=== PATIENT | male | born 1965 | race Caucasian/White ===

== ENCOUNTER 2016-09-18 21:57 | Emergency (ER) | payer MEDICAID ==
[2016-09-18 22:11] VITALS: BP 136/70; PULSE 93; O2SAT 94
[2016-09-18] MEDS ORDERED: BACIGUENT PACKET TP ONE (22:51)
[2016-09-18] MEDS ORDERED: XYLOCAINE 1%/Epi 1:100000 MDV 20 ML IJ ONE (22:51)
[2016-09-18] MEDS ORDERED: BACTRIM DS TABLET PO ONE ×2 (22:52→22:55)
[2016-09-18] MEDS ORDERED: XYLOCAINE 1%/Epi 1:100000 MDV 20 ML ONE (22:55)
[2016-09-18] MEDS ORDERED: BACIGUENT PACKET ONE (22:55)
--- NOTE | 2016-09-18 22:56 | ERPHSYRPT ---
- History of Present Illness Time Seen by Provider: 09/18/16 22:46 Source: patient Exam Limitations: no limitations Patient Subjective Stated Complaint: pt states he has an abcess on his rt elbow. states it began about a week ago and has increased in size since then Triage Nursing Assessment: pt alert and oriented, answers questions approp. pt ambultory with steady gait noted. respirations nonlabored with lungs cta. red raised area to rt elbow with scab in the middle approx 3x2cm. warmth noted to read area. cp refill and radial pulse to rt arm wnl. pt states senssation in normal. Physician History: FOR THE PAST 2 WEEKS PT HAS HAD A RED NODULE ON HIS RIGHT ELBOW; DENIES FEVER, RECENT TRAUMA, NUMBNESS, VOMITING. Allergies/Adverse Reactions: codeine [Codeine] Adverse Reaction (Verified 09/18/16 22:21) Iodinated Contrast Media - Oral and [IV Dye, Iodine Containing Contrast ] Adverse Reaction (Verified 09/18/16 22:21) Home Medications: Aspirin 325 mg PO DAILY 09/22/15 [History] Febuxostat [Uloric] 1 tab PO DAILY 09/22/15 [History] Gabapentin 800 mg PO DAILY 09/22/15 [History] Metoprolol Tartrate 50 mg [Lopressor 50 MG] 1 tab PO DAILY 09/22/15 [ History] Citalopram Hydrobromide [Citalopram HBr] 40 mg PO DAILY 04/07/16 [History] Hx Tetanus, Diphtheria Vaccination/Date Given: Yes Hx Influenza Vaccination/Date Given: No Hx Pneumococcal Vaccination/Date Given: No Immunizations Up to Date: Yes - Review of Systems Constitutional: No Fever Respiratory: No Dyspnea Cardiac: No Chest Pain Abdominal/Gastrointestinal: No Abdominal Pain, No Nausea, No Vomiting Skin: Other (NODULE ON RIGHT ELBOW.) All Other Systems: Reviewed and Negative - Past Medical History Pertinent Past Medical History: Yes Neurological History: No Pertinent History ENT History: Cataracts Cardiac History: High Cholesterol, Hypertension, Peripheral Vascular Disease Respiratory History: COPD Endocrine Medical History: Diabetes Type II Musculoskeletal History: No Pertinent History GI Medical History: GERD History: No Pertinent History Psycho-Social History: Depression Male Reproductive Disorders: Other Other Medical History: LOW TESTOSTERONE - GOUT,cardiac catherization- has blockages that dont require treatment at this time - Past Surgical History Past Surgical History: Yes Neuro Surgical History: No Pertinent History Cardiac: Cardiac Catheterization Respiratory: No Pertinent History Gastrointestinal: Cholecystectomy Genitourinary: No Pertinent History Musculoskeletal: Orthopedic Surgery Male Surgical History: No Pertinent History Other Surgical History: left wrist , diabetic neuropathy, small blockages no treatment at this time - Social History Smoking Status: Current every day smoker How long have you smoked: 30yrs Exposure to second hand smoke: No Drug Use: none Patient Lives Alone: No Significant Family History: heart disease, diabetes, hypertension, stroke - Nursing Vital Signs Nursing Vital Signs: Initial Vital Signs Temperature 99.0 F Temperature Source Oral Pulse Rate 93 Respiratory Rate 20 Blood Pressure [Right Arm] 136/70 Pain Intensity 4 - Physical Exam General Appearance: alert Eye Exam: PERRL/EOMI Ears, Nose, Throat Exam: pharynx normal, moist mucous membranes Neck Exam: normal inspection Respiratory Exam: lungs clear Cardiovascular Exam: normal heart sounds Gastrointestinal/Abdomen Exam: soft, normal bowel sounds Back Exam: normal range of motion Extremity Exam: normal range of motion Neurologic Exam: alert, cooperative Skin Exam: other (3 CM DIAMETER ERYTHEMATOUS NODULE ON RIGHT ELBOW.) SpO2 Interpretation: normal SpO2: 94 Oxygen Delivery: Room Air Procedures - Incision and Drainage Timeout: Performed Site: RIGHT ELBOW Anesthesia: 1% lidocaine w/epi cc's of anesthesia: 1 Blade Size: 11 I & D Procedure: culture obtained Results: moderate amount pus - Course Nursing assessment & vital signs reviewed: Yes Ordered Tests: Active Orders 24 hr Category Date Time Status Wound Care STAT Care 09/18/16 22:51 Active Medication Summary Discontinued Medications Generic Name Dose Route Start Last Admin Trade Name Lanny PRN Reason Stop Dose Admin Bacitracin 0.9 gm 09/18/16 22:51 09/18/16 23:02 Baciguent Packet TP 09/18/16 22:52 0.9 gm STAT ONE Administration Bacitracin Confirm 09/18/16 22:55 Baciguent Packet Administered 09/18/16 22:56 Dose 1 gm .ROUTE .STK-MED ONE Lidocaine/Epinephrine 5 ml 09/18/16 22:51 09/18/16 23:02 Xylocaine 1%/Epi [id number] Mdv 20 Ml IJ 09/18/16 22:52 5 ml STAT ONE Administration Lidocaine/Epinephrine Confirm 09/18/16 22:55 Xylocaine 1%/Epi 1:[id number] Mdv 20 Ml Administered 09/18/16 22:56 Dose 5 ml .ROUTE .STK-MED ONE Trimethoprim/Sulfamethoxazole 1 tab 09/18/16 22:52 09/18/16 23:02 Bactrim Ds Tablet PO 09/18/16 22:53 1 tab STAT ONE Administration Trimethoprim/Sulfamethoxazole Confirm 09/18/16 22:55 Bactrim Ds Tablet Administered 09/18/16 22:56 Dose 1 tab PO .STK-MED ONE - Departure Time of Disposition: 23:08 Departure Disposition: Home Clinical Impression: ABSCESS OF RIGHT ELBOW Condition: Fair Critical Care Time: No Instructions: Methicillin-Resistant Staph Infection (MRSA) Additional Instructions: FOLLOW UP WITH PRIVATE DOCTOR TOMORROW. NEOSPORIN & BANDAGE DAILY TO RIGHT ELBOW WOUND FOR 1 WEEK. Prescriptions: Smz/Tmp Ds Tablet [Bactrim Ds Tablet] 1 udtab PO BID #20 tablet
== END 2016-09-18 23:11 | disposition home or self-care (01) ==
LOC: ED 21:57
DX: L02.818 Cutaneous abscess of other sites (principal)
CPT/HCPCS: 87070; 87077; 87186; 99282; 99284; A9270-GY

== ENCOUNTER 2017-07-04 19:07 | Emergency (ER) | payer OTHER ==
[2017-07-04 19:23] VITALS: O2SAT 94
[2017-07-04] MEDS ORDERED: Cyclobenzaprine 10 MG PO ONE (19:35)
[2017-07-04] MEDS ORDERED: DECADRON 10MG INJ. IM ONE (19:35)
[2017-07-04] MEDS ORDERED: Hydromorphone 1 mg/ml Ampule IM ONE (19:35)
--- NOTE | 2017-07-04 19:39 | ERPHSYRPT ---
- History of Present Illness Time Seen by Provider: 07/04/17 19:30 Source: patient Exam Limitations: no limitations Patient Subjective Stated Complaint: pt states he has been having lower back pain for 4 days. Triage Nursing Assessment: pt alert and oreinted, asnwers questions approp. respriations nonlabored. pt trtansfer from wheelchair to stretcher with minimal assist, slow gait noted. mild tenderness to lower back. Physician History: 51 y/o male with history of DJD of lower spine comes to the ER with complaints of lower back pain for the past 4 days. Pt states that he attempted to get up and felt a pulling sensation in the lower back. Pt describes the pain as sharp, constant, 10/10, worse with movement and not relieved by naproxen, ASA and flexeril. No leg weakness or bowel/urinary incontinence. Timing/Duration: day(s) Method of Injury: bending Quality: sharp Back Pain Location: lumbar spine Back Pain Radiation: buttocks Severity of Pain-Max: severe Severity of Pain-Current: severe Modifying Factors: Improves With: nothing Associated Symptoms: denies symptoms Previous symptoms: same symptoms as today Allergies/Adverse Reactions: codeine [Codeine] Adverse Reaction (Verified 07/04/17 19:23) Iodinated Contrast- Oral and IV Dye [IV Dye, Iodine Containing Contrast ] Adverse Reaction (Verified 07/04/17 19:23) Home Medications: Aspirin 325 mg PO DAILY 09/22/15 [History] Febuxostat [Uloric] 1 tab PO DAILY 09/22/15 [History] Gabapentin 800 mg PO DAILY 09/22/15 [History] Metoprolol Tartrate 50 mg [Lopressor 50 MG] 1 tab PO DAILY 09/22/15 [ History] Citalopram Hydrobromide [Citalopram HBr] 40 mg PO DAILY 04/07/16 [History] Sitagliptin Phos/Metformin HCl [Janumet Xr 100-1,000 mg Tablet] 1 tab PO DAILY 07/04/17 [History] Hx Tetanus, Diphtheria Vaccination/Date Given: Yes Hx Influenza Vaccination/Date Given: No Hx Pneumococcal Vaccination/Date Given: No Immunizations Up to Date: Yes - Review of Systems Constitutional: No Fever, No Chills Eyes: No Symptoms Ears, Nose, & Throat: No Symptoms Respiratory: No Cough, No Dyspnea Cardiac: No Chest Pain, No Edema, No Syncope Abdominal/Gastrointestinal: No Abdominal Pain, No Nausea, No Vomiting, No Diarrhea Genitourinary Symptoms: No Dysuria, No Frequency, No Hematuria, No Incontinence , No Urinary Retention Musculoskeletal: Back Pain, No Neck Pain Skin: No Rash Neurological: No Dizziness, No Focal Weakness, No Sensory Changes Psychological: No Symptoms Endocrine: No Symptoms All Other Systems: Reviewed and Negative - Past Medical History Pertinent Past Medical History: Yes Neurological History: No Pertinent History ENT History: Cataracts Cardiac History: High Cholesterol, Hypertension, Peripheral Vascular Disease Respiratory History: COPD Endocrine Medical History: Diabetes Type II Musculoskeletal History: No Pertinent History GI Medical History: GERD History: No Pertinent History Psycho-Social History: Depression Male Reproductive Disorders: Other Other Medical History: LOW TESTOSTERONE - GOUT,cardiac catherization- has blockages that dont require treatment at this time - Past Surgical History Past Surgical History: Yes Neuro Surgical History: No Pertinent History Cardiac: Cardiac Catheterization Respiratory: No Pertinent History Gastrointestinal: Cholecystectomy Genitourinary: No Pertinent History Musculoskeletal: Orthopedic Surgery Male Surgical History: No Pertinent History Other Surgical History: left wrist , diabetic neuropathy, small blockages no treatment at this time - Social History Smoking Status: Current every day smoker How long have you smoked: 30yrs Exposure to second hand smoke: No Drug Use: none Patient Lives Alone: No Significant Family History: heart disease, diabetes, hypertension, stroke - Nursing Vital Signs Nursing Vital Signs: Initial Vital Signs Temperature 98.1 F 07/04/17 19:15 Pulse Rate 79 07/04/17 19:15 Respiratory Rate 20 07/04/17 19:15 Blood Pressure 139/87 07/04/17 19:15 O2 Sat by Pulse Oximetry 94 L 07/04/17 19:15 Pain Scale Pain Intensity [Lower Back] 10 Pain Intensity 10 - Physical Exam General Appearance: mild distress, alert Eye Exam: PERRL/EOMI, eyes nml inspection Neck Exam: normal inspection, non-tender, supple, full range of motion, No meningismus, No midline tenderness Respiratory Exam: normal breath sounds, lungs clear, No respiratory distress Cardiovascular Exam: regular rate/rhythm, normal heart sounds Gastrointestinal Exam: soft, No tenderness, No mass Back Exam: vertebral tenderness, decreased range of motion, muscle spasm, No normal range of motion, No CVA tenderness Extremity Exam: normal inspection, normal range of motion, No calf tenderness, No pedal edema Neurologic Exam: alert, oriented x 3, cooperative, 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, normal mood/affect, nml station & gait, sensation nml, No motor deficits Skin Exam: normal color, warm, dry, No rash SpO2: 94 Oxygen Delivery: Room Air - Course Nursing assessment & vital signs reviewed: Yes Ordered Tests: Medication Summary Discontinued Medications Generic Name Dose Route Start Last Admin Trade Name Freq PRN Reason Stop Dose Admin Cyclobenzaprine HCl 10 mg 07/04/17 19:35 07/04/17 19:48 Cyclobenzaprine 10 Mg PO 07/04/17 19:36 10 mg STAT ONE Administration Cyclobenzaprine HCl Confirm 07/04/17 19:43 Cyclobenzaprine 10 Mg Administered 07/04/17 19:44 Dose 10 mg .ROUTE .STK-MED ONE Dexamethasone Sodium Phosphate 10 mg 07/04/17 19:35 07/04/17 19:48 Decadron 10mg Inj. IM 07/04/17 19:36 10 mg STAT ONE Administration Dexamethasone Sodium Phosphate Confirm 07/04/17 19:43 Decadron 10mg Inj. Administered 07/04/17 19:44 Dose 10 mg .ROUTE .STK-MED ONE Hydromorphone HCl 1 mg 07/04/17 19:35 07/04/17 20:03 Hydromorphone 1 Mg/Ml Ampule IM 07/04/17 19:36 Not Given STAT ONE Hydromorphone HCl 1 mg 07/04/17 19:43 07/04/17 19:49 Dilaudid 2 Mg Injection IM 07/04/17 19:44 1 mg ONCE ONE Administration Hydromorphone HCl Confirm 07/04/17 19:46 Dilaudid 2 Mg Injection Administered 07/04/17 19:47 Dose 2 mg .ROUTE .STK-MED ONE - Progress Progress: improved Progress Note: 07/04/17 20:12 Pt feels better after receiving decadron, dilaudid and flexeril. Pt will be given a short course of percocet and will continue flexeril at home. I have advised the patient to not use any other inflammatories since he is a cardiac patient. - Departure Time of Disposition: 20:13 Departure Disposition: Home Clinical Impression: Back pain Qualifiers: Back pain location: low back pain Chronicity: acute Back pain laterality: midline Sciatica presence: without sciatica Qualified Code(s): M54.5 - Low back pain Condition: Stable Critical Care Time: No Referrals: JONAS SMITH MD [Primary Care Provider] - Instructions: Low Back Pain (DC) Additional Instructions: Follow up with your primary care doctor in he next few days if you should have worsening back pain. Prescriptions: Oxycodone HCl/Acetaminophen [Percocet 5-325 mg Tablet] 1 each PO QID PRN #10 tablet MDD 4 PRN Reason: Pain
[2017-07-04] MEDS ORDERED: DILAUDID 2 MG INJECTION IM ONE (19:43)
[2017-07-04] MEDS ORDERED: DECADRON 10MG INJ. ONE (19:43)
[2017-07-04] MEDS ORDERED: Cyclobenzaprine 10 MG ONE (19:43)
[2017-07-04] MEDS ORDERED: DILAUDID 2 MG INJECTION ONE (19:46)
[2017-07-04] MEDS ORDERED: PERCOCET TABLET 5/325MG PO STA (20:15)
[2017-07-04 20:19] VITALS: BP 132/61; PULSE 74
[2017-07-04] MEDS ORDERED: PERCOCET TABLET 5/325MG ONE (20:19)
== END 2017-07-04 20:24 | disposition home or self-care (01) ==
LOC: ED 19:07
DX: M54.5 Low back pain (principal); Z87.39 Personal history of other diseases of the musculoskeletal system and connective tissue
CPT/HCPCS: 96372; 99282; 99284; J1100; J1170; A9270-GY

== ENCOUNTER 2017-08-19 18:51 | Emergency (ER) | payer OTHER ==
[2017-08-19] MEDS ORDERED: Zofran 4 MG/2 ML VIAL IV ONE (19:32)
[2017-08-19] MEDS ORDERED: BENADRYL 50 MG/ML IV ONE (19:32)
--- NOTE | 2017-08-19 19:34 | ERPHSYRPT ---
- History of Present Illness Time Seen by Provider: 08/19/17 19:15 Source: patient, family Patient Subjective Stated Complaint: Headache, emesis, dizzy Triage Nursing Assessment: Pt presents to the ED with complaints of dizzy, emesis and headache that began today. Pt states he wanted to go home and sleep but his required him to come here. No distress noted. Pt states he feels better with eyes closed. Skin PWD. Physician History: PATIENT WITH A HISTORY OF HYPERTENSION, CORONARY ARTERY DISEASE COMPLAINS OF ACUTE ONSET OF EMESIS X 7 EPISODES SINCE 2PM, ASSOCIATED WITH FRONTAL HEADACHE AND DIZZINESS UPON MOTION OF HEAD. DENIES BLURRED VISION, SLURRED SPEECH, ABDOMINAL PAIN, FOCAL, NUMBNESS, TINGLING OR WEAKNESS IN EXTREMITIES. Timing/Duration: today Quality: other (DENIES ABDOMINAL PAIN.) Head Pain Location: frontal Severity of Pain-Max: moderate Severity of Pain-Current: moderate Recent Head Trauma: no recent headache/trauma Modifying Factors: Improves With: exposure to light Associated Symptoms: nausea/vomiting Previous symptoms: no prior history Allergies/Adverse Reactions: codeine [Codeine] Adverse Reaction (Verified 07/04/17 19:23) Iodinated Contrast- Oral and IV Dye [IV Dye, Iodine Containing Contrast ] Adverse Reaction (Verified 07/04/17 19:23) Home Medications: Aspirin 325 mg PO DAILY 09/22/15 [History] Febuxostat [Uloric] 1 tab PO DAILY 09/22/15 [History] Gabapentin 800 mg PO DAILY 09/22/15 [History] Metoprolol Tartrate 50 mg [Lopressor 50 MG] 1 tab PO DAILY 09/22/15 [ History] Citalopram Hydrobromide [Citalopram HBr] 40 mg PO DAILY 04/07/16 [History] Sitagliptin Phos/Metformin HCl [Janumet Xr 100-1,000 mg Tablet] 1 tab PO DAILY 07/04/17 [History] Hx Tetanus, Diphtheria Vaccination/Date Given: Yes Hx Influenza Vaccination/Date Given: No Hx Pneumococcal Vaccination/Date Given: Yes Immunizations Up to Date: Yes - Review of Systems Constitutional: No Fever, No Chills Eyes: No Symptoms Ears, Nose, & Throat: No Symptoms Respiratory: No Symptoms, No Cough, No Dyspnea Cardiac: No Chest Pain, No Edema, No Syncope Abdominal/Gastrointestinal: Nausea, Vomiting, No Abdominal Pain, No Diarrhea Genitourinary Symptoms: No Symptoms, No Dysuria Musculoskeletal: No Symptoms, No Back Pain, No Neck Pain Skin: No Rash Neurological: No Dizziness, No Focal Weakness, No Sensory Changes Psychological: No Symptoms Endocrine: No Symptoms All Other Systems: Reviewed and Negative - Past Medical History Pertinent Past Medical History: Yes Neurological History: No Pertinent History ENT History: Cataracts Cardiac History: High Cholesterol, Hypertension, Peripheral Vascular Disease Respiratory History: COPD Endocrine Medical History: Diabetes Type II Musculoskeletal History: No Pertinent History GI Medical History: GERD History: No Pertinent History Psycho-Social History: Depression Male Reproductive Disorders: Other Other Medical History: LOW TESTOSTERONE - GOUT,cardiac catherization- has blockages that dont require treatment at this time - Past Surgical History Past Surgical History: Yes Neuro Surgical History: No Pertinent History Cardiac: Cardiac Catheterization Respiratory: No Pertinent History Gastrointestinal: Cholecystectomy Genitourinary: No Pertinent History Musculoskeletal: Orthopedic Surgery Male Surgical History: No Pertinent History Other Surgical History: left wrist , diabetic neuropathy, small blockages no treatment at this time - Social History Smoking Status: Current every day smoker How long have you smoked: 33 years Exposure to second hand smoke: Yes Drug Use: none Patient Lives Alone: No Significant Family History: heart disease, diabetes, hypertension, stroke - Nursing Vital Signs Nursing Vital Signs: Initial Vital Signs Temperature 97.5 F 08/19/17 18:59 Pulse Rate 76 08/19/17 18:59 Respiratory Rate 18 08/19/17 18:59 Blood Pressure 154/80 08/19/17 18:59 O2 Sat by Pulse Oximetry 96 08/19/17 18:59 Pain Scale Pain Intensity 3 - Physical Exam General Appearance: no apparent distress Eye Exam: PERRL/EOMI Ears, Nose, Throat Exam: normal ENT inspection, moist mucous membranes Neck Exam: normal inspection, supple, full range of motion, No meningismus Respiratory Exam: normal breath sounds, lungs clear Cardiovascular Exam: regular rate/rhythm, normal heart sounds Gastrointestinal/Abdominal Exam: soft, normal bowel sounds, No tenderness, No distention Back Exam: normal inspection, normal range of motion Mental Status Exam: alert, oriented x 3, 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, PERRL, No facial droop Coordination/Gait Exam: normal cerebellar function Motor/Sensory Exam: no motor deficit, no sensory deficit DTR Exam: bicep (R): 2+, bicep (L): 2+, tricep (R): 2+, tricep (L): 2+, knee (R) : 2+, knee (L): 2+, ankle (R): 2+, ankle (L): 2+ Skin Exam: normal color, warm, dry, No rash SpO2 Interpretation: normal SpO2: 96 Oxygen Delivery: Room Air - CT Exams Head CT Interpretation: No/Intracranial Hemorrhag Ordered Tests: Active Orders 24 hr Category Date Time Status IV Insertion STAT Care 08/19/17 19:32 Active HEAD WITHOUT CONTRAST [CT] Stat Exams 08/19/17 19:33 Taken BMP Stat Lab 08/19/17 19:46 Completed CBC W DIFF Stat Lab 08/19/17 19:46 Completed Medication Summary Generic Name Dose Route Start Last Admin Trade Name Freq PRN Reason Stop Dose Admin Sodium Chloride 1,000 mls @ 250 mls/hr 08/19/17 19:45 08/19/17 19:44 Sodium Chloride 0.9% 1000 Ml IV 09/18/17 19:44 250 mls/hr .Q4H BEENA Administration Discontinued Medications Generic Name Dose Route Start Last Admin Trade Name Freq PRN Reason Stop Dose Admin Diphenhydramine HCl 25 mg 08/19/17 19:32 08/19/17 19:44 Benadryl 50 Mg/Ml IV 08/19/17 19:33 25 mg STAT ONE Administration Diphenhydramine HCl Confirm 08/19/17 19:36 Benadryl 50 Mg/Ml Administered 08/19/17 19:37 Dose 50 mg .ROUTE .STK-MED ONE Hydromorphone HCl 1 mg 08/19/17 20:18 08/19/17 20:29 Hydromorphone 1 Mg/Ml Ampule IV 08/19/17 20:19 1 mg STAT ONE Administration Hydromorphone HCl Confirm 08/19/17 20:28 Dilaudid 2 Mg Injection Administered 08/19/17 20:29 Dose 2 mg .ROUTE .STK-MED ONE Ondansetron HCl 8 mg 08/19/17 19:32 08/19/17 19:44 Zofran 4 Mg/2 Ml Vial IV 08/19/17 19:33 8 mg STAT ONE Administration Ondansetron HCl Confirm 08/19/17 19:36 Zofran 4 Mg/2 Ml Vial Administered 08/19/17 19:37 Dose 8 mg .ROUTE .STK-MED ONE Ondansetron HCl 4 mg 08/19/17 21:41 Zofran Odt 4 Mg PO 08/19/17 21:42 STAT ONE Lab/Rad Data: Laboratory Result Diagrams 08/19/17 19:46 08/19/17 19:46 Laboratory Results 08/19/17 08/19/17 Range/Units 19:46 19:46 WBC 8.0 (4.0-10.5) K/mm3 RBC 4.78 (4.1-5.6) M/mm3 Hgb 15.2 (12.5-18.0) gm/dl Hct 44.8 (42-50) % MCV 93.7 (78-100) fl MCH 31.8 (26-32) pg MCHC 33.9 (32-36) g/dl RDW 14.0 (11.5-14.0) % Plt Count 154 (150-450) K/mm3 MPV 10.0 H (6-9.5) fl Gran % 62.5 (36.0-66.0) % Eos # (Auto) 0.17 (0-0.5) Absolute Lymphs (auto) 2.17 (1.0-4.6) Absolute Monos (auto) 0.63 (0.0-1.3) Lymphocytes % 27.1 (24.0-44.0) % Monocytes % 7.9 (0.0-12.0) % Eosinophils % 2.1 (0.00-5.0) % Basophils % 0.4 (0.0-0.4) % Absolute Granulocytes 5.00 (1.4-6.9) Basophils # 0.03 (0-0.4) Sodium 141 (137-145) mmol/L Potassium 4.0 (3.5-5.1) mmol/L Chloride 98 (98-107) mmol/L Carbon Dioxide 30 (22-30) mmol/L Anion Gap 17.0 H (5-15) MEQ/L BUN 13 (9-20) mg/dL Creatinine 1.00 (0.66-1.25) mg/dL Estimated GFR > 60.0 ML/MIN Glucose 114 H (74-106) mg/dL Calcium 10.0 (8.4-10.2) mg/dL - Progress Progress: improved Progress Note: 08/19/17 20:24 IV NORMAL SALINE 250ML/HR, BENADRYL 25MG, ZOFRAN 8MG IV FOLLOWED BY DILAUDID 1MG IV Counseled pt/family regarding: lab results, diagnosis, need for follow-up, rad results - Departure Time of Disposition: 21:50 Departure Disposition: Home Clinical Impression: ACUTE CEPHALGIA, ACUTE VERTTIGO, ACUTE EMESIS Condition: Stable Critical Care Time: No Referrals: JONAS SMITH MD [Primary Care Provider] - Additional Instructions: ZOFRAN 4MG EVERY 6 HOURS FOR NAUSEA. ANTIVERT 25MG EVERY 8 HOURS FOR DIZZINESS NEEDED. DRINK PLENTY OF FLUIDS. CONSULT YOUR PRIMARY CARE PROVIDER FOR FOLLOWUP IN 2-3 DAYS. Prescriptions: Ondansetron ODT 4 MG [Zofran Odt 4 mg] 4 mg PO Q6H PRN PRN #6 tab.rapdis PRN Reason: NAUSEA, EMESIS Meclizine HCl 25 mg [Antivert 25 mg] 25 mg PO Q8HPRN PRN #20 tablet PRN Reason: Dizziness
[2017-08-19] MEDS ORDERED: Sodium Chloride 0.9% 1000 ML 1,000 ML ONE (19:36)
[2017-08-19] MEDS ORDERED: BENADRYL 50 MG/ML ONE (19:36)
[2017-08-19] MEDS ORDERED: Zofran 4 MG/2 ML VIAL ONE (19:36)
[2017-08-19] MEDS ORDERED: Sodium Chloride 0.9% 1000 ML 1,000 ML IV SCH (19:45)
[2017-08-19 19:56] LABS: BASOPHIL % 0.4 % (0.0-0.4); Basophil (Absolute #) 0.03 (0-0.4); Eosinophil % 2.1 % (0.00-5.0); Eosinophil (Absolute #) 0.17 (0-0.5); Granulocytes % 62.5 % (36.0-66.0); Hematocrit 44.8 % (42-50); Hemoglobin 15.2 gm/dl (12.5-18.0); Lymphocyte (Absolute #) 2.17 (1.0-4.6); Lymphocytes % 27.1 % (24.0-44.0); Mean Cell Volume 93.7 fl (78-100); Mean Corpuscular Hemoglobin 31.8 pg (26-32); Mean Corpuscular Hgb Concent. 33.9 g/dl (32-36); Monocyte (Absolute #) 0.63 (0.0-1.3); Monocytes % 7.9 % (0.0-12.0); Platelet Count 154 K/mm3 (150-450); Red Blood Count 4.78 M/mm3 (4.1-5.6)
[2017-08-19] MEDS ORDERED: Hydromorphone 1 mg/ml Ampule IV ONE (20:18)
[2017-08-19] MEDS ORDERED: DILAUDID 2 MG INJECTION ONE (20:28)
[2017-08-19 20:51] LABS: BLOOD UREA NITROGEN 13 mg/dL (9-20); CHLORIDE 98 mmol/L (98-107); Carbon Dioxide 30 mmol/L (22-30); Glucose 114 mg/dL (74-106); SODIUM 141 mmol/L (137-145)
[2017-08-19] MEDS ORDERED: ZOFRAN ODT 4 MG PO ONE (21:41)
[2017-08-19] MEDS ORDERED: ZOFRAN ODT 4 MG ONE (21:51)
[2017-08-19 22:01] VITALS: BP 115/82; PULSE 69; O2SAT 98
--- NOTE | 2017-08-20 08:28 | XRAY ---
Indication: Headache, dizziness, nausea, and vomiting. Multiple contiguous axial images obtained through the head without contrast. Comparison: September 20, 2015. Again normal appearing brain parenchyma, ventricles, and bony calvarium. Visualized paranasal sinuses and mastoid air cells are clear. Impression: Stable normal CT head without contrast exam. CT DI 68.81
== END 2017-08-19 22:05 | disposition home or self-care (01) ==
LOC: ED 18:51
DX: R51 Headache (principal); R42 Dizziness and giddiness; R11.10 Vomiting, unspecified; Z79.82 Long term (current) use of aspirin; Z79.899 Other long term (current) drug therapy; E11.9 Type 2 diabetes mellitus without complications; Z79.84 Long term (current) use of oral hypoglycemic drugs
CPT/HCPCS: 36000; 36415; 70450; 80048; 85025; 96360; 96361; 96374; 96375; 99284; J1170; J1200; J2405; Q0162

== ENCOUNTER 2017-10-24 00:05 | Emergency (ER) | payer OTHER ==
--- NOTE | 2017-10-24 01:03 | ERPHSYRPT ---
- History of Present Illness Time Seen by Provider: 10/24/17 00:47 Source: patient Exam Limitations: no limitations Patient Subjective Stated Complaint: pt is alert and oriented. pt is ambulatory. pt states that 2 days ago he hurt his left shoulder while "throwing stuff on a trailer" he states that he heard and felt a "pop". pt states that tonight he was mowing the yard and he felt another "pop" and his pain got worse. pt is not in any visible distress but has limitied range of motion of his left shoulder. pt states he took Percocet 10/325 at 2000 on 10/23/17. Triage Nursing Assessment: see above Physician History: Pt states, he injured his left shoulder 3 days ago, when lifting. 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 He denies direct trauma, headaches, chest pain, SOB, other injury or complaints. He also sustained a minor burn on his right lower leg few days ago. He states, his tetanus is up to date. Occurred: this afternoon Method of Injury: twisted Quality: constant Severity of Pain-Max: moderate Severity of Pain-Current: moderate Extremities Pain Location: shoulder: left Modifying Factors: Improves With: movement Associated Symptoms: none Allergies/Adverse Reactions: codeine [Codeine] Adverse Reaction (Verified 07/04/17 19:23) Iodinated Contrast- Oral and IV Dye [IV Dye, Iodine Containing Contrast ] Adverse Reaction (Verified 07/04/17 19:23) Home Medications: Aspirin 325 mg PO DAILY 09/22/15 [History] Febuxostat [Uloric] 1 tab PO DAILY 09/22/15 [History] Gabapentin 800 mg PO DAILY 09/22/15 [History] Metoprolol Tartrate 50 mg [Lopressor 50 MG] 1 tab PO DAILY 09/22/15 [ History] Citalopram Hydrobromide [Citalopram HBr] 40 mg PO DAILY 04/07/16 [History] Sitagliptin Phos/Metformin HCl [Janumet Xr 100-1,000 mg Tablet] 1 tab PO DAILY 07/04/17 [History] Hx Tetanus, Diphtheria Vaccination/Date Given: Yes Hx Influenza Vaccination/Date Given: Yes Hx Pneumococcal Vaccination/Date Given: Yes Immunizations Up to Date: Yes - Review of Systems Constitutional: No Symptoms Musculoskeletal: Other (left shoulder pain) All Other Systems: Reviewed and Negative - Past Medical History Pertinent Past Medical History: Yes Neurological History: No Pertinent History ENT History: Cataracts Cardiac History: High Cholesterol, Hypertension, Peripheral Vascular Disease Respiratory History: COPD Endocrine Medical History: Diabetes Type II Musculoskeletal History: No Pertinent History GI Medical History: GERD History: No Pertinent History Psycho-Social History: Depression Male Reproductive Disorders: Other Other Medical History: LOW TESTOSTERONE - GOUT,cardiac catherization- has blockages that dont require treatment at this time - Past Surgical History Past Surgical History: Yes Neuro Surgical History: No Pertinent History Cardiac: Cardiac Catheterization Respiratory: No Pertinent History Gastrointestinal: Cholecystectomy Genitourinary: No Pertinent History Musculoskeletal: Orthopedic Surgery Male Surgical History: No Pertinent History Other Surgical History: left wrist , diabetic neuropathy, small blockages no treatment at this time, teeth removal - Social History Smoking Status: Current every day smoker How long have you smoked: 33 years Exposure to second hand smoke: Yes Drug Use: none Patient Lives Alone: No Significant Family History: heart disease, diabetes, hypertension, stroke - Nursing Vital Signs Nursing Vital Signs: Initial Vital Signs Temperature 98.5 F 10/24/17 00:06 Pulse Rate 109 H 10/24/17 00:06 Respiratory Rate 16 10/24/17 00:06 Blood Pressure 177/78 10/24/17 00:06 O2 Sat by Pulse Oximetry 95 10/24/17 00:06 Pain Scale Pain Intensity 10 - Physical Exam General Appearance: no apparent distress Eyes, Ears, Nose, Throat Exam: normal ENT inspection Neck Exam: normal inspection, non-tender, supple Cardiovascular/Respiratory Exam: chest non-tender, normal breath sounds, regular rate/rhythm, heart sounds normal, no ecchymosis, no JVD Abdominal Exam: non-tender, soft, No guarding Back Exam: normal inspection, No CVA tenderness Shoulder Exam: normal inspection, limited ROM (due to pain), pain (chevy- lateral shoulder, no deformity, good distal pulses and sensation.) Neuro/Tendon Exam: normal sensation, normal motor functions Mental Status Exam: alert, oriented x 3, cooperative Skin Exam: normal color, warm, dry, other (1.5x 5 cm supoerficial, second degree burn on the right, medial lower leg, no redness or discharge, has been using Neosporin on it.), No rash SpO2 Interpretation: normal SpO2: 95 Oxygen Delivery: Room Air - Course Nursing assessment & vital signs reviewed: Yes - Radiology Exams Shoulder X-ray Interpretation: Interpreted by me, Negative Ordered Tests: Active Orders 24 hr Category Date Time Status SHOULDER Stat Exams 10/24/17 00:56 Taken - Progress Progress: unchanged Progress Note: 10/24/17 01:42 I informed patient about X ray result, and my diagnosis, possible rotator cuff syndrome, he will be discharged in sling, to rest for few days and follow up with his doctor next week. Counseled pt/family regarding: diagnosis, need for follow-up, rad results - Departure Time of Disposition: 01:43 Departure Disposition: Home Clinical Impression: Shoulder sprain Qualifiers: Encounter type: initial encounter Shoulder sprain type: unspecified sprain Laterality: left Qualified Code(s): S43.402A - Unspecified sprain of left shoulder joint, initial encounter Burn of right leg Qualifiers: Encounter type: initial encounter Burn degree: partial thickness (2nd degree) Qualified Code(s): T24.201A - Burn of second degree of unspecified site of right lower limb, except ankle and foot, initial encounter Condition: Stable Critical Care Time: No Referrals: JONAS SMITH MD [Primary Care Provider] - Instructions: Shoulder Sprain (DC), Rotator Cuff Injury (DC), Skin Martinez (DC) Additional Instructions: Rest in sling x 2-3 days, follow up with your physician next week, return if severe pain, sudden arm weakness, numbness! Prescriptions: Silver Sulfadiazine 50 gm [Silvadene 50 gm] 50 gm TP Q12H #1 cream.gm.
[2017-10-24 02:24] VITALS: BP 144/76; PULSE 89; O2SAT 97
--- NOTE | 2017-10-24 09:00 | XRAY ---
Indication: Pain following injury 3 days ago. Comparison: None 3 views of the left shoulder demonstrates mild AC degenerative arthropathy and tiny inferior acromial spurring. No other bony, articular, or soft tissue abnormalities.
== END 2017-10-24 02:22 | disposition home or self-care (01) ==
LOC: ED 00:05
DX: S43.402A Unspecified sprain of left shoulder joint, initial encounter (principal); M25.512 Pain in left shoulder; T24.201A Burn of second degree of unspecified site of right lower limb, except ankle and foot, initial encounter; Z79.899 Other long term (current) drug therapy; X50.9XXA Other and unspecified overexertion or strenuous movements or postures, initial encounter; Z79.82 Long term (current) use of aspirin
CPT/HCPCS: 73030; 99283

== ENCOUNTER 2018-08-24 21:17 | Emergency (ER) | payer OTHER ==
--- NOTE | 2018-08-24 22:01 | ERPHSYRPT ---
- History of Present Illness Time Seen by Provider: 08/24/18 21:57 Source: patient Exam Limitations: no limitations Patient Subjective Stated Complaint: sorethroat x2 days, burn with swallowing, non-prod cough, pt denies any nausea, vomiting or diarrhea Triage Nursing Assessment: lungs clear, no distress noted. Heart tones regular. Abd large, soft with active bs x4 quad. LBM . Pt's throat is red, no blisters noted. Pt c/o burning with swallowing. Physician History: 53-year-old white male with history of cataracts, hypercholesterolemia, high blood pressure, peripheral vascular disease, COPD, diabetes type 2, GERD, depression, gout. , As noted some mild blockages on cardiac catheter but has not required stents he arrives with complaint of sore throat feels like fire symptoms going on for 2 days she denies fever nausea vomiting shortness of breath he has had an occasional cough. He essentially states that he just has a sore throat. Past medical history includes cataracts, hypercholesterolemia, high blood pressure, peripheral vascular disease, COPD, diabetes type 2, GERD, depression, low testosterone, gout, history of cardiac catheter with blockages that do not require stents. 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 Timing/Duration: day(s) (2 days) Severity: moderate Modifying Factors: Improves With: other (patient on Percocet at home). Worsens With: cold therapy, eating, immobilization, medication, movement, rest, acetaminophen, ibuprofen, nothing Associated Symptoms: cough, No nausea, No vomiting, No abdominal pain, No shortness of breath, No heartburn, No diaphoresis, No chills, No chest pain, No fever, No headaches, No loss of appetite, No malaise, No rash, No syncope, No seizure, No weakness Allergies/Adverse Reactions: codeine [Codeine] Adverse Reaction (Verified 07/04/17 19:23) Iodinated Contrast- Oral and IV Dye [IV Dye, Iodine Containing Contrast ] Adverse Reaction (Verified 07/04/17 19:23) Home Medications: Aspirin 325 mg PO DAILY 09/22/15 [History] Gabapentin 800 mg PO DAILY 09/22/15 [History] Metoprolol Tartrate 50 mg [Lopressor 50 MG] 1 tab PO DAILY 09/22/15 [ History] Citalopram Hydrobromide [Citalopram HBr] 40 mg PO DAILY 04/07/16 [History] Sitagliptin Phos/Metformin HCl [Janumet Xr 100-1,000 mg Tablet] 1 tab PO DAILY 07/04/17 [History] Hx Tetanus, Diphtheria Vaccination/Date Given: Yes Hx Influenza Vaccination/Date Given: No Hx Pneumococcal Vaccination/Date Given: No Immunizations Up to Date: Yes - Review of Systems Constitutional: No Fever, No Chills Eyes: No Symptoms Ears, Nose, & Throat: Throat Pain, No Ear Pain, No Ear Discharge, No Hearing Changes, No Tinnitus, No Nose Pain, No Nose Congestion, No Nose Discharge, No Sinus Drainage, No Epistaxis, No Mouth Pain, No Mouth Swelling, No Loose Teeth, No Throat Swelling, No Hoarse, No Painful Swallowing, No Snoring, No Stridor Respiratory: No Cough, No Dyspnea Cardiac: No Chest Pain, No Edema, No Syncope Abdominal/Gastrointestinal: No Abdominal Pain, No Nausea, No Vomiting, No Diarrhea Genitourinary Symptoms: No Dysuria Musculoskeletal: No Back Pain, No Neck Pain Skin: No Rash Neurological: No Dizziness, No Focal Weakness, No Sensory Changes Psychological: No Symptoms Endocrine: No Symptoms All Other Systems: Reviewed and Negative - Past Medical History Pertinent Past Medical History: Yes Neurological History: No Pertinent History ENT History: Cataracts Cardiac History: Coronary Artery Disease, Hypertension Respiratory History: Sleep Apnea Endocrine Medical History: No Pertinent History Musculoskeletal History: Arthritis, Fractures GI Medical History: Gallbladder Disease History: No Pertinent History Psycho-Social History: Depression Male Reproductive Disorders: No Pertinent History Other Medical History: LOW TESTOSTERONE - GOUT,cardiac catherization- has blockages that dont require treatment at this time - Past Surgical History Past Surgical History: No Neuro Surgical History: No Pertinent History Cardiac: Cardiac Catheterization Respiratory: No Pertinent History Gastrointestinal: No Pertinent History, Cholecystectomy Genitourinary: No Pertinent History Musculoskeletal: Orthopedic Surgery Male Surgical History: No Pertinent History Other Surgical History: left wrist , diabetic neuropathy, small blockages no treatment at this time, teeth removal - Social History Smoking Status: Current every day smoker How long have you smoked: 17 yrs Exposure to second hand smoke: Yes Drug Use: none Patient Lives Alone: No Significant Family History: heart disease, diabetes, hypertension, stroke - Nursing Vital Signs Nursing Vital Signs: Initial Vital Signs Temperature 98.0 F 08/24/18 21:17 Pulse Rate 95 H 08/24/18 21:17 Respiratory Rate 17 08/24/18 21:17 Blood Pressure 151/90 08/24/18 21:17 O2 Sat by Pulse Oximetry 96 08/24/18 21:17 Pain Scale Pain Intensity 0 - Physical Exam General Appearance: mild distress, alert, obese Eye Exam: PERRL/EOMI, eyes nml inspection Ears, Nose, Throat Exam: TMs normal, moist mucous membranes, pharyngeal erythema , No pharynx normal (throat erythematous), No dry mucous membranes, No TM abnormal (R), No TM abnormal (L), No tonsillar exudate Neck Exam: normal inspection, non-tender, supple, full range of motion Respiratory Exam: normal breath sounds Cardiovascular Exam: regular rate/rhythm, normal heart sounds, normal peripheral pulses, capillary refill <2 sec Gastrointestinal/Abdomen Exam: soft, normal bowel sounds, No tenderness, No mass Back Exam: normal inspection, normal range of motion, No CVA tenderness, No vertebral tenderness Extremity Exam: normal inspection, normal range of motion, pelvis stable Neurologic Exam: alert, oriented x 3, cooperative, 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 Strep test is negative vitals are stable. Patient with narcotic analgesia at home. Will discharge patient - Departure Departure Disposition: Home Clinical Impression: Viral pharyngitis, Throat pain Condition: Fair Critical Care Time: No Referrals: JONAS SMITH MD [Primary Care Provider] - Instructions: Sore Throat, Adult (DC), Viral Pharyngitis (DC) Additional Instructions: Return home. Plenty of fluids. Pain medications as prescribed by your family doctor. Follow-up with your family doctor if symptoms are worse, no better in 48 hours, or persist longer than one week. Return for acute distress or for severe symptoms.
[2018-08-25 00:12] VITALS: BP 132/72; PULSE 90; O2SAT 95
== END 2018-08-25 00:18 | disposition home or self-care (01) ==
LOC: ED 21:17
DX: J02.9 Acute pharyngitis, unspecified (principal); R07.0 Pain in throat
CPT/HCPCS: 87651; 99283

== ENCOUNTER 2018-09-29 22:35 | Observation (INO) | payer OTHER ==
--- NOTE | 2018-09-29 23:36 | ERPHSYRPT ---
- History of Present Illness Time Seen by Provider: 09/29/18 23:20 Historian: patient Exam Limitations: no limitations Patient Subjective Stated Complaint: pt states he has been throwing up since yesterday and has pain in his chest from throwing up. states he "just doesnt feel well" Triage Nursing Assessment: pt alert and oriented, answers questions approp. pt ambulatory from wheelchair to stretcher with no assist. skin warm and dry. repsirations nonlabored with lungs cta. pt sinus rhythm on monitor at 76bpm. pupils equal and reactive. bilat upper and lower ext strength equal and wnl. Physician History: Pt states, he started c/o dizziness, vomiting, left sided chest pain 2 days ago. He vomited few times, denies headaches, no focal weakness, visual changes, or slurred speech, no fever, chills, abdominal pain, other complaints, denies vertigo. Pt takes regular aspirin every morning. Timing/Duration: day(s) (2) Activities at Onset: none Quality: sharpness Location: central Chest Pain Radiation: no radiation Severity of Pain-Max: severe Severity of Pain-Current: moderate Modifying Factors: Improves With: nothing Associated Symptoms: nausea, vomiting, shortness of breath, dizziness Prior Chest Pain/Cardiac Workup: cardiac cath Nitro Today/Relief: no nitro taken today Aspirin Treatment Today: no aspirin today Allergies/Adverse Reactions: codeine [Codeine] Adverse Reaction (Verified 09/29/18 22:58) Iodinated Contrast- Oral and IV Dye [IV Dye, Iodine Containing Contrast ] Adverse Reaction (Verified 09/29/18 22:58) Home Medications: Aspirin 325 mg PO DAILY 09/22/15 [History] Gabapentin 800 mg PO DAILY 09/22/15 [History] Metoprolol Tartrate 50 mg [Lopressor 50 MG] 1 tab PO DAILY 09/22/15 [ History] Citalopram Hydrobromide [Citalopram HBr] 40 mg PO DAILY 04/07/16 [History] Sitagliptin Phos/Metformin HCl [Janumet Xr 100-1,000 mg Tablet] 1 tab PO DAILY 07/04/17 [History] Hx Tetanus, Diphtheria Vaccination/Date Given: Yes Hx Influenza Vaccination/Date Given: No Hx Pneumococcal Vaccination/Date Given: No Immunizations Up to Date: Yes - Review of Systems Constitutional: No Symptoms Eyes: No Symptoms Ears, Nose, & Throat: No Symptoms Respiratory: Dyspnea Cardiac: Chest Pain Abdominal/Gastrointestinal: Nausea, Vomiting Genitourinary Symptoms: No Symptoms Musculoskeletal: No Symptoms Skin: No Symptoms Neurological: Dizziness Psychological: No Symptoms All Other Systems: Reviewed and Negative - Past Medical History Pertinent Past Medical History: Yes Neurological History: No Pertinent History ENT History: Cataracts Cardiac History: Coronary Artery Disease, Hypertension Respiratory History: Sleep Apnea Endocrine Medical History: No Pertinent History Musculoskeletal History: Arthritis, Fractures GI Medical History: Gallbladder Disease History: No Pertinent History Psycho-Social History: Depression Male Reproductive Disorders: No Pertinent History Other Medical History: LOW TESTOSTERONE - GOUT,cardiac catherization- has blockages that dont require treatment at this time - Past Surgical History Past Surgical History: Yes Neuro Surgical History: No Pertinent History Cardiac: Cardiac Catheterization Respiratory: No Pertinent History Gastrointestinal: No Pertinent History, Cholecystectomy Genitourinary: No Pertinent History Musculoskeletal: Orthopedic Surgery Male Surgical History: No Pertinent History Other Surgical History: left wrist , diabetic neuropathy, small blockages no treatment at this time, teeth removal - Social History Smoking Status: Current every day smoker How long have you smoked: 17 yrs Exposure to second hand smoke: Yes Drug Use: none Patient Lives Alone: No Significant Family History: heart disease, diabetes, hypertension, stroke - Nursing Vital Signs Nursing Vital Signs: Initial Vital Signs Respiratory Rate 18 05/22/19 22:43 Pain Scale Pain Intensity 7 - Physical Exam General Appearance: no apparent distress Eye Exam: PERRL/EOMI, eyes nml inspection Ears, Nose, Throat Exam: normal ENT inspection, moist mucous membranes Neck Exam: normal inspection, non-tender, supple, No carotid bruit, No JVD Respiratory Exam: normal breath sounds, lungs clear, airway intact, No chest tenderness Cardiovascular Exam: regular rate/rhythm, normal heart sounds, normal peripheral pulses, No murmur Gastrointestinal/Abdomen Exam: soft, normal bowel sounds, No tenderness, No distention, No mass, No guarding, No pulsatile mass, No rebound, No hernia Back Exam: normal inspection, No CVA tenderness Extremity Exam: normal inspection, No calf tenderness, No xiomara's sign Neurologic Exam: alert, oriented x 3, cooperative, normal mood/affect, No motor deficits, No confusion Skin Exam: normal color, warm, dry, No rash, No petechiae Lymphatic Exam: No adenopathy SpO2 Interpretation: normal O2 Delivery: Room Air - Course Nursing assessment & vital signs reviewed: Yes EKG Interpreted by Me: RATE (74/min), Left [place] Deviation, NORMAL INTERVALS, NORMAL QRS, NORMAL ST-T - Radiology Exams Chest X-ray Interpretation: Interpreted by me, Negative - CT Exams Head CT Interpretation: Negative, Tele-radiologist Report Ordered Tests: Active Orders 24 hr Category Date Time Status Pediatrician Active Practice STAT Care 09/29/18 23:31 Active EKG-ER Only STAT Care 09/29/18 23:30 Active IV Insertion STAT Care 09/29/18 23:30 Active Orthostatic Vital Signs STAT Care 09/29/18 23:30 Active CHEST 1 VIEW (PORTABLE) Stat Exams 09/29/18 23:30 Taken HEAD WITHOUT CONTRAST [CT] Stat Exams 09/29/18 23:31 Taken CBC W DIFF Stat Lab 09/29/18 23:52 Completed CK-Creatinine Phosphokinase Stat Lab 09/29/18 23:52 Completed CMP Stat Lab 09/29/18 23:52 Completed D-DIMER QUANTITATION Stat Lab 09/29/18 23:52 Completed MAGNESIUM Stat Lab 09/29/18 23:52 Completed NT PRO BNP Stat Lab 09/29/18 23:52 Completed TROPONIN Q3H Lab 09/29/18 23:30 Completed TROPONIN Q3H Lab 09/30/18 02:30 Ordered TROPONIN Q3H Lab 09/30/18 05:30 Ordered TROPONIN Q3H Lab 09/30/18 08:30 Ordered TROPONIN Q3H Lab 09/30/18 11:30 Ordered UA W/RFX UR CULTURE Stat Lab 09/29/18 23:54 Completed Urine Triage Profile Stat Lab 09/29/18 23:54 Completed Lab/Rad Data: Laboratory Result Diagrams 09/29/18 23:52 09/29/18 23:52 Laboratory Results 09/29/18 09/29/18 09/29/18 Range/Units 23:54 23:54 23:52 WBC (4.0-10.5) K/mm3 RBC (4.1-5.6) M/mm3 Hgb (12.5-18.0) gm/dl Hct (42-50) % MCV (78-100) fl MCH (26-32) pg MCHC (32-36) g/dl RDW (11.5-14.0) % Plt Count (150-450) K/mm3 MPV (6-9.5) fl Gran % (36.0-66.0) % Eos # (Auto) (0-0.5) Absolute Lymphs (auto) (1.0-4.6) Absolute Monos (auto) (0.0-1.3) Lymphocytes % (24.0-44.0) % Monocytes % (0.0-12.0) % Eosinophils % (0.00-5.0) % Basophils % (0.0-0.4) % Absolute Granulocytes (1.4-6.9) Basophils # (0-0.4) D-Dimer 482 (215-500) ng/mL Sodium (137-145) mmol/L Potassium (3.5-5.1) mmol/L Chloride (98-107) mmol/L Carbon Dioxide (22-30) mmol/L Anion Gap (5-15) MEQ/L BUN (9-20) mg/dL Creatinine (0.66-1.25) mg/dL Estimated GFR ML/MIN Glucose (74-106) mg/dL Calcium (8.4-10.2) mg/dL Magnesium (1.6-2.3) mg/dL Total Bilirubin (0.2-1.3) mg/dL AST (17-59) U/L ALT (0-50) U/L Alkaline Phosphatase (38-126) U/L Creatine Kinase (55-170) U/L Troponin I (0.000-0.034) ng/mL NT-Pro-B Natriuret Pep (0-900) pg/mL Serum Total Protein (6.3-8.2) g/dL Albumin (3.5-5.0) g/dL Urine Color YELLOW (YELLOW) Urine Appearance SLIGHTLY CLOUDY (CLEAR) Urine pH 5.0 (5-6) Ur Specific [place] 1.017 (1.005-1.025) Urine Protein NEGATIVE (Negative) Urine Ketones NEGATIVE (NEGATIVE) Urine Blood SMALL (0-5) Steve/ul Urine Nitrite NEGATIVE (NEGATIVE) Urine Bilirubin NEGATIVE (NEGATIVE) Urine Urobilinogen NEGATIVE (0-1) mg/dL Ur Leukocyte Esterase NEGATIVE (NEGATIVE) Urine WBC (Auto) 0-2 (0-5) /HPF Urine RBC (Auto) 3-5 (0-2) /HPF U Hyaline Cast (Auto) 26-50 (0-2) /LPF U Epithel Cells (Auto) RARE (FEW) /HPF Urine Bacteria (Auto) RARE (NEGATIVE) /HPF Urine Mucus (Auto) SLIGHT (NEGATIVE) /HPF Urine Culture Reflexed NO (NO) Urine Glucose NEGATIVE (NEGATIVE) mg/dL Urine Opiates Level POSITIVE (NEGATIVE) Ur Methadone NEGATIVE (NEGATIVE) Urine Barbiturates NEGATIVE (NEGATIVE) Ur Phencyclidine (PCP) NEGATIVE (NEGATIVE) Urine Amphetamine NEGATIVE (NEGATIVE) U Benzodiazepine Level NEGATIVE (NEGATIVE) Urine Cocaine NEGATIVE (NEGATIVE) Urine Marijuana (THC) NEGATIVE (NEGATIVE) 09/29/18 09/29/18 09/29/18 Range/Units 23:52 23:52 23:52 WBC 16.1 H (4.0-10.5) K/mm3 RBC 4.67 (4.1-5.6) M/mm3 Hgb 15.0 (12.5-18.0) gm/dl Hct 45.0 (42-50) % MCV 96.4 (78-100) fl MCH 32.1 H (26-32) pg MCHC 33.3 (32-36) g/dl RDW 13.5 (11.5-14.0) % Plt Count 188 (150-450) K/mm3 MPV 9.9 H (6-9.5) fl Gran % 63.4 (36.0-66.0) % Eos # (Auto) 0.17 (0-0.5) Absolute Lymphs (auto) 4.42 (1.0-4.6) Absolute Monos (auto) 1.28 (0.0-1.3) Lymphocytes % 27.4 (24.0-44.0) % Monocytes % 7.9 (0.0-12.0) % Eosinophils % 1.1 (0.00-5.0) % Basophils % 0.2 (0.0-0.4) % Absolute Granulocytes 10.21 H (1.4-6.9) Basophils # 0.04 (0-0.4) D-Dimer (215-500) ng/mL Sodium 142 (137-145) mmol/L Potassium 3.9 (3.5-5.1) mmol/L Chloride 98 (98-107) mmol/L Carbon Dioxide 25 (22-30) mmol/L Anion Gap 22.8 H (5-15) MEQ/L BUN 21 H (9-20) mg/dL Creatinine 1.79 H (0.66-1.25) mg/dL Estimated GFR 42.8 ML/MIN Glucose 103 (74-106) mg/dL Calcium 10.6 H (8.4-10.2) mg/dL Magnesium 1.7 (1.6-2.3) mg/dL Total Bilirubin 0.60 (0.2-1.3) mg/dL AST 56 (17-59) U/L ALT 36 (0-50) U/L Alkaline Phosphatase 83 (38-126) U/L Creatine Kinase 140 (55-170) U/L Troponin I (0.000-0.034) ng/mL NT-Pro-B Natriuret Pep 129 (0-900) pg/mL Serum Total Protein 9.3 H (6.3-8.2) g/dL Albumin 4.7 (3.5-5.0) g/dL Urine Color (YELLOW) Urine Appearance (CLEAR) Urine pH (5-6) Ur Specific [place] (1.005-1.025) Urine Protein (Negative) Urine Ketones (NEGATIVE) Urine Blood (0-5) Steve/ul Urine Nitrite (NEGATIVE) Urine Bilirubin (NEGATIVE) Urine Urobilinogen (0-1) mg/dL Ur Leukocyte Esterase (NEGATIVE) Urine WBC (Auto) (0-5) /HPF Urine RBC (Auto) (0-2) /HPF U Hyaline Cast (Auto) (0-2) /LPF U Epithel Cells (Auto) (FEW) /HPF Urine Bacteria (Auto) (NEGATIVE) /HPF Urine Mucus (Auto) (NEGATIVE) /HPF Urine Culture Reflexed (NO) Urine Glucose (NEGATIVE) mg/dL Urine Opiates Level (NEGATIVE) Ur Methadone (NEGATIVE) Urine Barbiturates (NEGATIVE) Ur Phencyclidine (PCP) (NEGATIVE) Urine Amphetamine (NEGATIVE) U Benzodiazepine Level (NEGATIVE) Urine Cocaine (NEGATIVE) Urine Marijuana (THC) (NEGATIVE) 09/29/18 Range/Units 23:30 WBC (4.0-10.5) K/mm3 RBC (4.1-5.6) M/mm3 Hgb (12.5-18.0) gm/dl Hct (42-50) % MCV (78-100) fl MCH (26-32) pg MCHC (32-36) g/dl RDW (11.5-14.0) % Plt Count (150-450) K/mm3 MPV (6-9.5) fl Gran % (36.0-66.0) % Eos # (Auto) (0-0.5) Absolute Lymphs (auto) (1.0-4.6) Absolute Monos (auto) (0.0-1.3) Lymphocytes % (24.0-44.0) % Monocytes % (0.0-12.0) % Eosinophils % (0.00-5.0) % Basophils % (0.0-0.4) % Absolute Granulocytes (1.4-6.9) Basophils # (0-0.4) D-Dimer (215-500) ng/mL Sodium (137-145) mmol/L Potassium (3.5-5.1) mmol/L Chloride (98-107) mmol/L Carbon Dioxide (22-30) mmol/L Anion Gap (5-15) MEQ/L BUN (9-20) mg/dL Creatinine (0.66-1.25) mg/dL Estimated GFR ML/MIN Glucose (74-106) mg/dL Calcium (8.4-10.2) mg/dL Magnesium (1.6-2.3) mg/dL Total Bilirubin (0.2-1.3) mg/dL AST (17-59) U/L ALT (0-50) U/L Alkaline Phosphatase (38-126) U/L Creatine Kinase (55-170) U/L Troponin I 0.030 (0.000-0.034) ng/mL NT-Pro-B Natriuret Pep (0-900) pg/mL Serum Total Protein (6.3-8.2) g/dL Albumin (3.5-5.0) g/dL Urine Color (YELLOW) Urine Appearance (CLEAR) Urine pH (5-6) Ur Specific [place] (1.005-1.025) Urine Protein (Negative) Urine Ketones (NEGATIVE) Urine Blood (0-5) Steve/ul Urine Nitrite (NEGATIVE) Urine Bilirubin (NEGATIVE) Urine Urobilinogen (0-1) mg/dL Ur Leukocyte Esterase (NEGATIVE) Urine WBC (Auto) (0-5) /HPF Urine RBC (Auto) (0-2) /HPF U Hyaline Cast (Auto) (0-2) /LPF U Epithel Cells (Auto) (FEW) /HPF Urine Bacteria (Auto) (NEGATIVE) /HPF Urine Mucus (Auto) (NEGATIVE) /HPF Urine Culture Reflexed (NO) Urine Glucose (NEGATIVE) mg/dL Urine Opiates Level (NEGATIVE) Ur Methadone (NEGATIVE) Urine Barbiturates (NEGATIVE) Ur Phencyclidine (PCP) (NEGATIVE) Urine Amphetamine (NEGATIVE) U Benzodiazepine Level (NEGATIVE) Urine Cocaine (NEGATIVE) Urine Marijuana (THC) (NEGATIVE) - Progress Progress: unchanged Air Movement: good Progress Note: 09/30/18 00:50 We reviewed his results, discussed with him and his , called Dr Smith, his physician, discussed our results and his current condition, he agreed to adsmit him for observation, started IV hydration, given IV Zofran. Blood Culture(s) Obtained: No Antibiotics given: No Discussed with .: Tamika Will see patient in: hospital (observation) Counseled pt/family regarding: lab results, diagnosis, need for follow-up - Departure Departure Disposition: Observation Clinical Impression: Chest pain, rule out acute myocardial infarction, Dizziness, Dehydration Condition: Stable Critical Care Time: No Referrals: JONAS SMITH MD [Primary Care Provider] - Instructions: Dizziness, Nonvertigo, (DC)
[2018-09-29 23:56] LABS: BASOPHIL % 0.2 % (0.0-0.4); Basophil (Absolute #) 0.04 (0-0.4); Eosinophil % 1.1 % (0.00-5.0); Eosinophil (Absolute #) 0.17 (0-0.5); Granulocyte Absolute (ANC) 10.21 (1.4-6.9); Granulocytes % 63.4 % (36.0-66.0); Lymphocyte (Absolute #) 4.42 (1.0-4.6); Lymphocytes % 27.4 % (24.0-44.0); Mean Cell Volume 96.4 fl (78-100); Mean Corpuscular Hemoglobin 32.1 pg (26-32); Mean Corpuscular Hgb Concent. 33.3 g/dl (32-36); Mean Platelet Volume 9.9 fl (6-9.5); Monocyte (Absolute #) 1.28 (0.0-1.3); Monocytes % 7.9 % (0.0-12.0); Platelet Count 188 K/mm3 (150-450); Red Blood Count 4.67 M/mm3 (4.1-5.6); Red Cell Distribution Width 13.5 % (11.5-14.0); White Blood Count 16.1 K/mm3 (4.0-10.5)
[2018-09-30 00:05] LABS: Appearance SLIGHTLY CLOUDY (CLEAR); Bacteria RARE /HPF (NEGATIVE); Bilirubin NEGATIVE (NEGATIVE); Blood SMALL Ery/ul (0-5); Epithelial Cells RARE /HPF (FEW); Glucose NEGATIVE (NEGATIVE); Hyaline Casts 26-50 /LPF (0-2); Ketones NEGATIVE (NEGATIVE); Leukocyte Esterase NEGATIVE (NEGATIVE); Mucus SLIGHT /HPF (NEGATIVE); Nitrite NEGATIVE (NEGATIVE); Protein,Urine Dip NEGATIVE (Negative); Specific Gravity 1.017 (1.005-1.025); Urobilinogen NEGATIVE mg/dL (0-1); WBC 0-2 /HPF (0-5)
[2018-09-30 00:11] LABS: ALBUMIN 4.7 g/dL (3.5-5.0); ANION GAP 22.8 MEQ/L (5-15); BILIRUBIN,TOTAL 0.6 mg/dL (0.2-1.3); Calcium 10.6 mg/dL (8.4-10.2); Creatinine 1 1.79 mg/dL (0.66-1.25); MAGNESIUM 1.7 mg/dL (1.6-2.3); Potassium 3.9 mmol/L (3.5-5.1); Total Protein 9.3 g/dL (6.3-8.2)
[2018-09-30 00:14] LABS: Amphetamine,Urine NEGATIVE (NEGATIVE); Barbiturate,Urine NEGATIVE (NEGATIVE); Benzodiazepine,Urine NEGATIVE (NEGATIVE); Cocaine,Urine NEGATIVE (NEGATIVE); Methadone,Urine NEGATIVE (NEGATIVE); Opiate,Urine POSITIVE (NEGATIVE); PCP,Urine NEGATIVE (NEGATIVE); THC,Urine NEGATIVE (NEGATIVE)
[2018-09-30 00:26] LABS: CK-Creatinine Phosphokinase 140 U/L (55-170); NT PRO BNP 129 pg/mL (0-900)
[2018-09-30] MEDS ORDERED: Zofran 4 MG/2 ML VIAL IV ONE (00:49)
[2018-09-30] MEDS ORDERED: Zofran 4 MG/2 ML VIAL IV PRN (00:55)
[2018-09-30] MEDS ORDERED: MAALOX ES 30 ML UNIT DOSE PO PRN (00:55)
[2018-09-30] MEDS ORDERED: NovoLOG Insulin SQ PRN (00:55)
[2018-09-30] MEDS ORDERED: MILK OF MAGNESIA 30 ML PO PRN (00:55)
[2018-09-30] MEDS ORDERED: TYLENOL 325 MG PO PRN (00:55)
[2018-09-30] MEDS ORDERED: Senokot-S Tablet PO PRN (00:55)
[2018-09-30] MEDS ORDERED: Sodium Chloride 0.9% 500 ML 500 ML IV SCH (01:00)
[2018-09-30] MEDS ORDERED: Sodium Chloride 0.9% 1000 ML 1,000 ML IV SCH (01:00)
[2018-09-30 06:09] LABS: Risk Ratio 4.4
--- NOTE | 2018-09-30 09:05 | XRAY ---
Indication: Chest pain. Vomiting. Comparison: September 20, 2015. Portable chest demonstrates normal heart and lungs. Bony thorax intact again with mild degenerative changes. No new/acute findings.
--- NOTE | 2018-09-30 09:07 | XRAY ---
Indication: Headache and dizziness. Multiple contiguous axial images obtained through the head without contrast. Comparison: August 19, 2017. Again normal appearing brain parenchyma, ventricles, and bony calvarium. Visualized paranasal sinuses and mastoid air cells are clear. Impression: Stable normal CT head without contrast exam. Comment: Preliminary interpretation was made by [facility]. No discrepancy. CT DI 70.77
[2018-09-30] MEDS ORDERED: OXYCODONE-ACETAMINOPHEN 10-325 PO PRN (09:49)
[2018-09-30] MEDS ORDERED: FOLATE 1 MG PO SCH (10:00)
[2018-09-30] MEDS ORDERED: Zocor 10MG PO SCH (10:00)
[2018-09-30] MEDS ORDERED: Neurontin 400 MG PO SCH (10:00)
[2018-09-30] MEDS ORDERED: hydroDIURIL 25 MG PO SCH (10:00)
[2018-09-30] MEDS ORDERED: Zestril 10 MG PO SCH (10:00)
[2018-09-30] MEDS ORDERED: Protonix 40MG Tablet PO SCH (10:00)
[2018-09-30] MEDS ORDERED: Oxycontin 10 MG ER PO SCH (10:00)
[2018-09-30] MEDS ORDERED: NON-FORMULARY ITEM (Atorvastatin Calcium [Atorvastatin Calcium] 10 MG) PO SCH (10:00)
[2018-09-30] MEDS ORDERED: Ecotrin 325 MG PO SCH (10:00)
[2018-09-30] MEDS ORDERED: MEDICATION INTERVENTION MC SCH (10:45)
--- NOTE | 2018-09-30 12:40 | PCM.SSS ---
History of Present Illness - Chief Complaint Chief Complaint: c/o dizziness History of Present Illness: Mr.HOLLINGSWORTH MORALES is a 53 year old male.Pt states, he started c/o dizziness, vomiting, left sided chest pain 2 days ago. He vomited few times, denies headaches, no focal weakness, visual changes, or slurred speech, no fever, chills, abdominal pain, other complaints, denies vertigo. Pt takes regular aspirin every morning. Timing/Duration: day(s) (2) Activities at Onset: none Quality: sharpness Location: central Chest Pain Radiation: no radiation Severity of Pain-Max: severe Severity of Pain-Current: moderate Modifying Factors: Improves With: nothing Associated Symptoms: nausea, vomiting, shortness of breath, dizziness Prior Chest Pain/Cardiac Workup: cardiac cath Nitro Today/Relief: no nitro taken today Aspirin Treatment Today: no aspirin today - Review of Systems Constitutional: No Fever, No Chills Eyes: No Symptoms Ears, Nose, & Throat: No Symptoms Respiratory: No Cough, No Short Of Breath Cardiac: No Chest Pain, No Edema, No Syncope Abdominal/Gastrointestinal: No Abdominal Pain, No Nausea, No Vomiting, No Diarrhea Genitourinary Symptoms: No Dysuria Musculoskeletal: No Back Pain, No Neck Pain Skin: No Rash Neurological: No Dizziness, No Focal Weakness, No Sensory Changes Psychological: No Symptoms Endocrine: No Symptoms Hematologic/Lymphatic: No Symptoms Immunological/Allergic: No Symptoms Medications & Allergies Home Medications: Home Medication List Allopurinol 300 mg [Zyloprim 300 mg] 300 mg PO HS 09/30/18 [History Confirmed 09/30/18] Atorvastatin Calcium 10 mg PO DAILY 09/30/18 [History Confirmed 09/30/18] Cyclobenzaprine HCl 10 mg [Cyclobenzaprine 10 MG] 10 mg PO HS 09/30/18 [ History Confirmed 09/30/18] Ergocalciferol (Vitamin D2) [Vitamin D2] 50,000 units PO WEEKLY 09/30/18 [ History Confirmed 09/30/18] Fenofibrate Nanocrystallized [Fenofibrate] 48 mg PO HS 09/30/18 [History Confirmed 09/30/18] Folic Acid 1 mg PO BID 09/30/18 [History Confirmed 09/30/18] Gabapentin 800 mg PO BID 09/30/18 [History Confirmed 09/30/18] Liraglutide [Victoza 2-Daniel] 18 mg SQ DAILY 09/30/18 [History Confirmed 09/30/18] Lisinopril 10 mg [Zestril 10 MG] 10 mg PO DAILY 09/30/18 [History Confirmed 09/30/18] Metoprolol Tartrate 50 mg [Lopressor 50 MG] 50 mg PO HS 09/30/18 [History Confirmed 09/30/18] Omeprazole 40 mg PO DAILY 09/30/18 [History Confirmed 09/30/18] Oxycodone / APAP 10/325 mg [Oxycodone-Acetaminophen 10-325] 1 tab PO Q6HPRN PRN 09/30/18 [History Confirmed 09/30/18] Oxycodone HCl [Oxycodone HCl ER] 10 mg PO BID 09/30/18 [History Confirmed ] Sitagliptin Phos/Metformin HCl [Janumet Xr 100-1,000 mg Tablet] 1 tab PO HS [History Confirmed 09/30/18] hydroCHLOROthiazide [Hydrochlorothiazide] 25 mg PO DAILY 09/30/18 [History Confirmed 09/30/18] Allergies/Adverse Reactions: Allergies Allergy/AdvReac Type Severity Reaction Status Date / Time codeine [Codeine] AdvReac Verified 09/29/18 22:58 Iodinated Contrast- Oral and AdvReac Verified 09/29/18 22:58 IV Dye [IV Dye, Iodine Containing Contrast ] - Past Medical History Past Medical History: Yes Neurological History: No Pertinent History ENT History: Cataracts Cardiac History: Coronary Artery Disease, Hypertension Respiratory History: Sleep Apnea Endocrine Medical History: No Pertinent History Musculoskelatal History: Arthritis, Fractures GI Medical History: Gallbladder Disease History: No Pertinent History Pyscho-Social History: Depression Male Reproductive Disorders: No Pertinent History Comment: LOW TESTOSTERONE - GOUT,cardiac catherization- has blockages that dont require treatment at this time - Past Surgical History Past Surgical History: Yes Neuro Surgical History: No Pertinent History Cardiac History: Cardiac Catheterization Respiratory Surgery: No Pertinent History GI Surgical History: No Pertinent History, Cholecystectomy Genitourinary Surgical Hx: No Pertinent History Musculskeletal Surgical Hx: Orthopedic Surgery Male Surgical History: No Pertinent History Other Surgical History: left wrist , diabetic neuropathy, small blockages no treatment at this time, teeth removal - Social History Smoking Status: Current every day smoker How long have you smoked: 34 years Exposure to second hand smoke: Yes Alcohol: None Drug Use: none Significant Family History: heart disease, diabetes, hypertension, stroke - Physical Exam Vital Signs: Vital Signs - 24 hr Temp Pulse Resp BP Pulse Ox 09/30/18 12:00 96 09/30/18 08:00 96 09/30/18 07:32 97.3 F 71 20 129/64 96 09/30/18 07:30 98 09/30/18 05:37 95 09/30/18 02:38 97.9 F 72 20 143/75 98 09/30/18 01:54 66 18 118/62 94 L 09/30/18 00:40 74 18 125/74 96 09/29/18 23:51 74 14 139/79 97 09/29/18 22:43 18 General Appearance: no apparent distress, alert Neurologic Exam: alert, oriented x 3, cooperative, normal mood/affect, nml cerebellar function, nml station & gait, sensation nml, No motor deficits Eye Exam: PERRL/EOMI, eyes nml inspection Ears, Nose, Throat Exam: normal ENT inspection, TMs normal, pharynx normal, moist mucous membranes Neck Exam: normal inspection, non-tender, supple, full range of motion Respiratory Exam: normal breath sounds, lungs clear, No respiratory distress Cardiovascular Exam: regular rate/rhythm, normal heart sounds, normal peripheral pulses Gastrointestinal/Abdomen Exam: soft, normal bowel sounds, No tenderness, No mass Back Exam: normal inspection, normal range of motion, No CVA tenderness, No vertebral tenderness Extremity Exam: normal inspection, normal range of motion, pelvis stable Skin Exam: normal color, warm, dry, No rash Lymphatic Exam: No adenopathy Results - Labs Lab/Micro Results: Accuchecks Date 09/30/18 Date 09/30/18 Time 11:30 Time 07:30 Accucheck Value: 141 Accucheck Value: 119 Lab Results-Last 24 Hours 09/29/18 09/29/18 09/29/18 Range/Units 23:30 23:52 23:52 WBC 16.1 H (4.0-10.5) K/mm3 RBC 4.67 (4.1-5.6) M/mm3 Hgb 15.0 (12.5-18.0) gm/dl Hct 45.0 (42-50) % MCV 96.4 (78-100) fl MCH 32.1 H (26-32) pg MCHC 33.3 (32-36) g/dl RDW 13.5 (11.5-14.0) % Plt Count 188 (150-450) K/mm3 MPV 9.9 H (6-9.5) fl Gran % 63.4 (36.0-66.0) % Eos # (Auto) 0.17 (0-0.5) Absolute Lymphs (auto) 4.42 (1.0-4.6) Absolute Monos (auto) 1.28 (0.0-1.3) Lymphocytes % 27.4 (24.0-44.0) % Monocytes % 7.9 (0.0-12.0) % Eosinophils % 1.1 (0.00-5.0) % Basophils % 0.2 (0.0-0.4) % Absolute Granulocytes 10.21 H (1.4-6.9) Basophils # 0.04 (0-0.4) D-Dimer (215-500) ng/mL Sodium 142 (137-145) mmol/L Potassium 3.9 (3.5-5.1) mmol/L Chloride 98 (98-107) mmol/L Carbon Dioxide 25 (22-30) mmol/L Anion Gap 22.8 H (5-15) MEQ/L BUN 21 H (9-20) mg/dL Creatinine 1.79 H (0.66-1.25) mg/dL Estimated GFR 42.8 ML/MIN Glucose 103 (74-106) mg/dL Calcium 10.6 H (8.4-10.2) mg/dL Magnesium 1.7 (1.6-2.3) mg/dL Total Bilirubin 0.60 (0.2-1.3) mg/dL AST 56 (17-59) U/L ALT 36 (0-50) U/L Alkaline Phosphatase 83 (38-126) U/L Creatine Kinase (55-170) U/L Troponin I 0.030 (0.000-0.034) ng/mL NT-Pro-B Natriuret Pep (0-900) pg/mL Serum Total Protein 9.3 H (6.3-8.2) g/dL Albumin 4.7 (3.5-5.0) g/dL Triglycerides (30-150) mg/dL Cholesterol (50-200) mg/dL LDL Cholesterol (30-100) mg/dL HDL Cholesterol (40-60) mg/dL Heart Disease Risk Ratio Urine Color (YELLOW) Urine Appearance (CLEAR) Urine pH (5-6) Ur Specific [place] (1.005-1.025) Urine Protein (Negative) Urine Ketones (NEGATIVE) Urine Blood (0-5) Steve/ul Urine Nitrite (NEGATIVE) Urine Bilirubin (NEGATIVE) Urine Urobilinogen (0-1) mg/dL Ur Leukocyte Esterase (NEGATIVE) Urine WBC (Auto) (0-5) /HPF Urine RBC (Auto) (0-2) /HPF U Hyaline Cast (Auto) (0-2) /LPF U Epithel Cells (Auto) (FEW) /HPF Urine Bacteria (Auto) (NEGATIVE) /HPF Urine Mucus (Auto) (NEGATIVE) /HPF Urine Culture Reflexed (NO) Urine Glucose (NEGATIVE) mg/dL Urine Opiates Level (NEGATIVE) Ur Methadone (NEGATIVE) Urine Barbiturates (NEGATIVE) Ur Phencyclidine (PCP) (NEGATIVE) Urine Amphetamine (NEGATIVE) U Benzodiazepine Level (NEGATIVE) Urine Cocaine (NEGATIVE) Urine Marijuana (THC) (NEGATIVE) 09/29/18 09/29/18 09/29/18 Range/Units 23:52 23:52 23:54 WBC (4.0-10.5) K/mm3 RBC (4.1-5.6) M/mm3 Hgb (12.5-18.0) gm/dl Hct (42-50) % MCV (78-100) fl MCH (26-32) pg MCHC (32-36) g/dl RDW (11.5-14.0) % Plt Count (150-450) K/mm3 MPV (6-9.5) fl Gran % (36.0-66.0) % Eos # (Auto) (0-0.5) Absolute Lymphs (auto) (1.0-4.6) Absolute Monos (auto) (0.0-1.3) Lymphocytes % (24.0-44.0) % Monocytes % (0.0-12.0) % Eosinophils % (0.00-5.0) % Basophils % (0.0-0.4) % Absolute Granulocytes (1.4-6.9) Basophils # (0-0.4) D-Dimer 482 (215-500) ng/mL Sodium (137-145) mmol/L Potassium (3.5-5.1) mmol/L Chloride (98-107) mmol/L Carbon Dioxide (22-30) mmol/L Anion Gap (5-15) MEQ/L BUN (9-20) mg/dL Creatinine (0.66-1.25) mg/dL Estimated GFR ML/MIN Glucose (74-106) mg/dL Calcium (8.4-10.2) mg/dL Magnesium (1.6-2.3) mg/dL Total Bilirubin (0.2-1.3) mg/dL AST (17-59) U/L ALT (0-50) U/L Alkaline Phosphatase (38-126) U/L Creatine Kinase 140 (55-170) U/L Troponin I (0.000-0.034) ng/mL NT-Pro-B Natriuret Pep 129 (0-900) pg/mL Serum Total Protein (6.3-8.2) g/dL Albumin (3.5-5.0) g/dL Triglycerides (30-150) mg/dL Cholesterol (50-200) mg/dL LDL Cholesterol (30-100) mg/dL HDL Cholesterol (40-60) mg/dL Heart Disease Risk Ratio Urine Color YELLOW (YELLOW) Urine Appearance SLIGHTLY CLOUDY (CLEAR) Urine pH 5.0 (5-6) Ur Specific [place] 1.017 (1.005-1.025) Urine Protein NEGATIVE (Negative) Urine Ketones NEGATIVE (NEGATIVE) Urine Blood SMALL (0-5) Steve/ul Urine Nitrite NEGATIVE (NEGATIVE) Urine Bilirubin NEGATIVE (NEGATIVE) Urine Urobilinogen NEGATIVE (0-1) mg/dL Ur Leukocyte Esterase NEGATIVE (NEGATIVE) Urine WBC (Auto) 0-2 (0-5) /HPF Urine RBC (Auto) 3-5 (0-2) /HPF U Hyaline Cast (Auto) 26-50 (0-2) /LPF U Epithel Cells (Auto) RARE (FEW) /HPF Urine Bacteria (Auto) RARE (NEGATIVE) /HPF Urine Mucus (Auto) SLIGHT (NEGATIVE) /HPF Urine Culture Reflexed NO (NO) Urine Glucose NEGATIVE (NEGATIVE) mg/dL Urine Opiates Level (NEGATIVE) Ur Methadone (NEGATIVE) Urine Barbiturates (NEGATIVE) Ur Phencyclidine (PCP) (NEGATIVE) Urine Amphetamine (NEGATIVE) U Benzodiazepine Level (NEGATIVE) Urine Cocaine (NEGATIVE) Urine Marijuana (THC) (NEGATIVE) 09/29/18 09/30/18 09/30/18 Range/Units 23:54 02:38 05:25 WBC (4.0-10.5) K/mm3 RBC (4.1-5.6) M/mm3 Hgb (12.5-18.0) gm/dl Hct (42-50) % MCV (78-100) fl MCH (26-32) pg MCHC (32-36) g/dl RDW (11.5-14.0) % Plt Count (150-450) K/mm3 MPV (6-9.5) fl Gran % (36.0-66.0) % Eos # (Auto) (0-0.5) Absolute Lymphs (auto) (1.0-4.6) Absolute Monos (auto) (0.0-1.3) Lymphocytes % (24.0-44.0) % Monocytes % (0.0-12.0) % Eosinophils % (0.00-5.0) % Basophils % (0.0-0.4) % Absolute Granulocytes (1.4-6.9) Basophils # (0-0.4) D-Dimer (215-500) ng/mL Sodium (137-145) mmol/L Potassium (3.5-5.1) mmol/L Chloride (98-107) mmol/L Carbon Dioxide (22-30) mmol/L Anion Gap (5-15) MEQ/L BUN (9-20) mg/dL Creatinine (0.66-1.25) mg/dL Estimated GFR ML/MIN Glucose (74-106) mg/dL Calcium (8.4-10.2) mg/dL Magnesium (1.6-2.3) mg/dL Total Bilirubin (0.2-1.3) mg/dL AST (17-59) U/L ALT (0-50) U/L Alkaline Phosphatase (38-126) U/L Creatine Kinase (55-170) U/L Troponin I 0.027 0.024 (0.000-0.034) ng/mL NT-Pro-B Natriuret Pep (0-900) pg/mL Serum Total Protein (6.3-8.2) g/dL Albumin (3.5-5.0) g/dL Triglycerides (30-150) mg/dL Cholesterol (50-200) mg/dL LDL Cholesterol (30-100) mg/dL HDL Cholesterol (40-60) mg/dL Heart Disease Risk Ratio Urine Color (YELLOW) Urine Appearance (CLEAR) Urine pH (5-6) Ur Specific [place] (1.005-1.025) Urine Protein (Negative) Urine Ketones (NEGATIVE) Urine Blood (0-5) Steve/ul Urine Nitrite (NEGATIVE) Urine Bilirubin (NEGATIVE) Urine Urobilinogen (0-1) mg/dL Ur Leukocyte Esterase (NEGATIVE) Urine WBC (Auto) (0-5) /HPF Urine RBC (Auto) (0-2) /HPF U Hyaline Cast (Auto) (0-2) /LPF U Epithel Cells (Auto) (FEW) /HPF Urine Bacteria (Auto) (NEGATIVE) /HPF Urine Mucus (Auto) (NEGATIVE) /HPF Urine Culture Reflexed (NO) Urine Glucose (NEGATIVE) mg/dL Urine Opiates Level POSITIVE (NEGATIVE) Ur Methadone NEGATIVE (NEGATIVE) Urine Barbiturates NEGATIVE (NEGATIVE) Ur Phencyclidine (PCP) NEGATIVE (NEGATIVE) Urine Amphetamine NEGATIVE (NEGATIVE) U Benzodiazepine Level NEGATIVE (NEGATIVE) Urine Cocaine NEGATIVE (NEGATIVE) Urine Marijuana (THC) NEGATIVE (NEGATIVE) 09/30/18 09/30/18 09/30/18 Range/Units 05:25 08:40 11:37 WBC (4.0-10.5) K/mm3 RBC (4.1-5.6) M/mm3 Hgb (12.5-18.0) gm/dl Hct (42-50) % MCV (78-100) fl MCH (26-32) pg MCHC (32-36) g/dl RDW (11.5-14.0) % Plt Count (150-450) K/mm3 MPV (6-9.5) fl Gran % (36.0-66.0) % Eos # (Auto) (0-0.5) Absolute Lymphs (auto) (1.0-4.6) Absolute Monos (auto) (0.0-1.3) Lymphocytes % (24.0-44.0) % Monocytes % (0.0-12.0) % Eosinophils % (0.00-5.0) % Basophils % (0.0-0.4) % Absolute Granulocytes (1.4-6.9) Basophils # (0-0.4) D-Dimer (215-500) ng/mL Sodium (137-145) mmol/L Potassium (3.5-5.1) mmol/L Chloride (98-107) mmol/L Carbon Dioxide (22-30) mmol/L Anion Gap (5-15) MEQ/L BUN (9-20) mg/dL Creatinine (0.66-1.25) mg/dL Estimated GFR ML/MIN Glucose (74-106) mg/dL Calcium (8.4-10.2) mg/dL Magnesium (1.6-2.3) mg/dL Total Bilirubin (0.2-1.3) mg/dL AST (17-59) U/L ALT (0-50) U/L Alkaline Phosphatase (38-126) U/L Creatine Kinase (55-170) U/L Troponin I 0.030 0.029 (0.000-0.034) ng/mL NT-Pro-B Natriuret Pep (0-900) pg/mL Serum Total Protein (6.3-8.2) g/dL Albumin (3.5-5.0) g/dL Triglycerides 253 H (30-150) mg/dL Cholesterol 107 (50-200) mg/dL LDL Cholesterol 59 (30-100) mg/dL HDL Cholesterol 24 L (40-60) mg/dL Heart Disease Risk Ratio 4.4 Urine Color (YELLOW) Urine Appearance (CLEAR) Urine pH (5-6) Ur Specific [place] (1.005-1.025) Urine Protein (Negative) Urine Ketones (NEGATIVE) Urine Blood (0-5) Steve/ul Urine Nitrite (NEGATIVE) Urine Bilirubin (NEGATIVE) Urine Urobilinogen (0-1) mg/dL Ur Leukocyte Esterase (NEGATIVE) Urine WBC (Auto) (0-5) /HPF Urine RBC (Auto) (0-2) /HPF U Hyaline Cast (Auto) (0-2) /LPF U Epithel Cells (Auto) (FEW) /HPF Urine Bacteria (Auto) (NEGATIVE) /HPF Urine Mucus (Auto) (NEGATIVE) /HPF Urine Culture Reflexed (NO) Urine Glucose (NEGATIVE) mg/dL Urine Opiates Level (NEGATIVE) Ur Methadone (NEGATIVE) Urine Barbiturates (NEGATIVE) Ur Phencyclidine (PCP) (NEGATIVE) Urine Amphetamine (NEGATIVE) U Benzodiazepine Level (NEGATIVE) Urine Cocaine (NEGATIVE) Urine Marijuana (THC) (NEGATIVE) Accuchecks Date 09/30/18 Date 09/30/18 Time 11:30 Time 07:30 Accucheck Value: 141 Accucheck Value: 119 - Radiology Impressions Radiology Exams & Impressions: Radiology Procedures Category Date Time Status CHEST 1 VIEW (PORTABLE) Stat Exams 09/29/18 23:30 Completed HEAD WITHOUT CONTRAST [CT] Stat Exams 09/29/18 23:31 Completed - Other Procedures and Tests Respiratory Therapy 09/30/18 00:56 Oxygen NASAL CANNULA 2 lpm 09/30/18 07:30 Respiratory Therapy Assessment DAILY 10/01/18 05:00 EKG ROUTINE 10/02/18 05:00 EKG ROUTINE 10/03/18 05:00 EKG ROUTINE Assessment/Plan (1) Dehydration Current Visit: Yes Status: Acute Code(s): E86.0 - DEHYDRATION (2) Dizziness Current Visit: Yes Status: Acute Code(s): R42 - DIZZINESS AND GIDDINESS (3) Diabetes type 2, controlled Current Visit: No Status: Acute Code(s): E11.9 - TYPE 2 DIABETES MELLITUS WITHOUT COMPLICATIONS Hospital Summary - Hospital Course Hospital Course: Chief Complaint Diagnosis CP r/o CO; dizziness; dehydration Allergies Allergy/AdvReac Type Severity Reaction Status Date / Time codeine [Codeine] AdvReac Verified 09/29/18 22:58 Iodinated Contrast- Oral and AdvReac Verified 09/29/18 22:58 IV Dye [IV Dye, Iodine Containing Contrast ] Vital Signs (Last 24 hours) Temp Pulse Resp BP Pulse Ox 09/30/18 12:00 96 09/30/18 08:00 96 09/30/18 07:32 97.3 F 71 20 129/64 96 09/30/18 07:30 98 09/30/18 05:37 95 09/30/18 02:38 97.9 F 72 20 143/75 98 09/30/18 01:54 66 18 118/62 94 L 09/30/18 00:40 74 18 125/74 96 09/29/18 23:51 74 14 139/79 97 09/29/18 22:43 18 Home Medications Medication Instructions Recorded Confirmed Last Taken Type Allopurinol 300 mg [Zyloprim 300 mg PO HS 09/30/18 09/30/18 09/29/18 History 300 mg] Atorvastatin Calcium 10 mg PO DAILY 09/30/18 09/30/18 09/29/18 History Cyclobenzaprine HCl 10 mg 10 mg PO HS 09/30/18 09/30/18 09/29/18 History [Cyclobenzaprine 10 MG] Ergocalciferol (Vitamin D2) 50,000 units PO WEEKLY 09/30/18 09/30/18 09/27/18 History [Vitamin D2] Fenofibrate Nanocrystallized 48 mg PO HS 09/30/18 09/30/18 09/29/18 History [Fenofibrate] Folic Acid 1 mg PO BID 09/30/18 09/30/18 09/29/18 History Gabapentin 800 mg PO BID 09/30/18 09/30/18 09/29/18 History Liraglutide [Victoza 2-Daniel] 18 mg SQ DAILY 09/30/18 09/30/18 09/29/18 History Lisinopril 10 mg [Zestril 10 10 mg PO DAILY 09/30/18 09/30/18 09/29/18 History MG] Metoprolol Tartrate 50 mg 50 mg PO HS 09/30/18 09/30/18 09/29/18 History [Lopressor 50 MG] Omeprazole 40 mg PO DAILY 09/30/18 09/30/18 09/29/18 History Oxycodone / APAP 10/325 mg 1 tab PO Q6HPRN PRN 09/30/18 09/30/18 Unknown History [Oxycodone-Acetaminophen 10-325] Oxycodone HCl [Oxycodone HCl ER] 10 mg PO BID 09/30/18 09/30/18 09/29/18 History Sitagliptin Phos/Metformin HCl 1 tab PO HS 09/30/18 09/30/1819 History [Janumet Xr 100-1,000 mg Tablet] hydroCHLOROthiazide 25 mg PO DAILY 09/30/18 09/30/18 09/29/18 History [Hydrochlorothiazide] Current Medications Generic Name Dose Route Start Last Admin Trade Name Freq PRN Reason Stop Dose Admin Acetaminophen 650 mg 09/30/18 00:55 09/30/18 02:33 Tylenol 325 Mg PO 10/30/18 00:54 650 mg Q4H PRN PRN Administration PAIN AND/OR FEVER Al Hydrox/Mg Hydrox/Simethicone 30 ml 09/30/18 00:55 Maalox Es 30 Ml Unit Dose PO 10/30/18 00:54 Q4H PRN PRN INDIGESTION Allopurinol 300 mg 09/30/18 22:00 Zyloprim 300 Mg PO 10/30/18 21:59 HS [facility] Aspirin 325 mg 09/30/18 10:00 09/30/18 10:46 Ecotrin 325 Mg PO 10/30/18 09:59 325 mg DAILY BEENA Administration Cyclobenzaprine HCl 10 mg 09/30/18 22:00 Cyclobenzaprine 10 Mg PO 10/30/18 21:59 HS [facility] Ergocalciferol 50,000 unit 10/04/18 10:00 Vitamin D2 PO 11/03/18 09:59 Q7D [facility] Fenofibrate 72.5 mg 09/30/18 22:00 Tricor 145 Mg PO 10/30/18 21:59 HS [facility] Folic Acid 1 mg 09/30/18 10:00 09/30/18 10:46 Folate 1 Mg PO 10/30/18 09:59 1 mg BID BEENA Administration Gabapentin 800 mg 09/30/18 10:00 09/30/18 10:45 Neurontin 400 Mg PO 10/30/18 09:59 800 mg BID BEENA Administration Hydrochlorothiazide 25 mg 09/30/18 10:00 09/30/18 10:45 Hydrodiuril 25 Mg PO 10/30/18 09:59 25 mg DAILY BEENA Administration Sodium Chloride 1,000 mls @ 100 mls/hr 09/30/18 01:00 09/30/18 01:47 Sodium Chloride 0.9% 1000 Ml IV 10/30/18 00:59 100 mls/hr .Q10H BEENA Administration Insulin Aspart 0 unit 09/30/18 00:55 Novolog Insulin SQ 10/30/18 00:54 PRN PRN HYPERGLYCEMIA Lisinopril 10 mg 09/30/18 10:00 09/30/18 10:46 Zestril 10 Mg PO 10/30/18 09:59 10 mg DAILY BEENA Administration Magnesium Hydroxide 30 - 60 ml 09/30/18 00:55 Milk Of Magnesia 30 Ml PO 10/30/18 00:54 QDP PRN CONSTIPATION Metformin HCl 1,000 mg 09/30/18 22:00 Glucophage Xr 500 Mg PO 10/30/18 21:59 HS [facility] Metoprolol Tartrate 50 mg 09/30/18 22:00 Lopressor 50 Mg PO 10/30/18 21:59 HS [facility] Miscellaneous Information 1 each 09/30/18 10:45 Medication Intervention MC 10/30/18 10:44 .RN TO CHECK ON BEENA Ondansetron HCl 4 mg 09/30/18 00:55 Zofran 4 Mg/2 Ml Vial IV 10/30/18 00:54 Q4H PRN PRN NAUSEA/VOMITING Oxycodone HCl 10 mg 09/30/18 10:00 09/30/18 10:46 Oxycontin 10 Mg Er PO 10/05/18 09:59 10 mg BID BEENA Administration Oxycodone/Acetaminophen 1 tab 09/30/18 09:49 Oxycodone-Acetaminophen 10-325 PO 10/05/18 09:48 Q6HPRN PRN MODERATE TO SEVERE PAIN Pantoprazole Sodium 40 mg 09/30/18 10:00 09/30/18 10:46 Protonix 40mg Tablet PO 10/30/18 09:59 40 mg DAILY BEENA Administration Senna/Docusate Sodium 2 udtab 09/30/18 00:55 Senokot-S Tablet PO 10/30/18 00:54 BID PRN PRN CONSTIPATION Simvastatin 10 mg 09/30/18 10:00 09/30/18 10:46 Zocor 10mg PO 10/30/18 09:59 10 mg DAILY BEENA Administration Sitagliptin Phosphate 100 mg 09/30/18 22:00 Januvia 50 Mg PO 10/30/18 21:59 HS BEENA Discontinued Medications Generic Name Dose Route Start Last Admin Trade Name Lanny PRN Reason Stop Dose Admin Sodium Chloride 500 mls @ 100 mls/hr 09/30/18 01:00 Sodium Chloride 0.9% 500 Ml IV 10/30/18 00:59 .Q5H BEENA Ondansetron HCl 4 mg 09/30/18 00:49 09/30/18 01:48 Zofran 4 Mg/2 Ml Vial IV 09/30/18 00:50 4 mg STAT ONE Administration Intake & Output (Last 24 hours) 09/28/18 09/29/18 09/30/18 10/01/18 11:59 11:59 11:59 11:59 Intake Total 480 Balance 480 Weight 161.4 kg Laboratory Results (Last 24 hours) 09/30/18 09/30/18 09/30/18 11:37 08:40 05:25 WBC RBC Hgb Hct MCV MCH MCHC RDW Plt Count MPV Gran % Eos # (Auto) Absolute Lymphs (auto) Absolute Monos (auto) Lymphocytes % Monocytes % Eosinophils % Basophils % Absolute Granulocytes Basophils # D-Dimer Sodium Potassium Chloride Carbon Dioxide Anion Gap BUN Creatinine Estimated GFR Glucose Calcium Magnesium Total Bilirubin AST ALT Alkaline Phosphatase Creatine Kinase Troponin I 0.029 0.030 NT-Pro-B Natriuret Pep Serum Total Protein Albumin Triglycerides 253 H Cholesterol 107 LDL Cholesterol 59 HDL Cholesterol 24 L Heart Disease Risk Ratio 4.4 Urine Color Urine Appearance Urine pH Ur Specific [place] Urine Protein Urine Ketones Urine Blood Urine Nitrite Urine Bilirubin Urine Urobilinogen Ur Leukocyte Esterase Urine WBC (Auto) Urine RBC (Auto) U Hyaline Cast (Auto) U Epithel Cells (Auto) Urine Bacteria (Auto) Urine Mucus (Auto) Urine Culture Reflexed Urine Glucose Urine Opiates Level Ur Methadone Urine Barbiturates Ur Phencyclidine (PCP) Urine Amphetamine U Benzodiazepine Level Urine Cocaine Urine Marijuana (THC) 09/30/18 09/30/18 09/29/18 05:25 02:38 23:54 WBC RBC Hgb Hct MCV MCH MCHC RDW Plt Count MPV Gran % Eos # (Auto) Absolute Lymphs (auto) Absolute Monos (auto) Lymphocytes % Monocytes % Eosinophils % Basophils % Absolute Granulocytes Basophils # D-Dimer Sodium Potassium Chloride Carbon Dioxide Anion Gap BUN Creatinine Estimated GFR Glucose Calcium Magnesium Total Bilirubin AST ALT Alkaline Phosphatase Creatine Kinase Troponin I 0.024 0.027 NT-Pro-B Natriuret Pep Serum Total Protein Albumin Triglycerides Cholesterol LDL Cholesterol HDL Cholesterol Heart Disease Risk Ratio Urine Color Urine Appearance Urine pH Ur Specific [place] Urine Protein Urine Ketones Urine Blood Urine Nitrite Urine Bilirubin Urine Urobilinogen Ur Leukocyte Esterase Urine WBC (Auto) Urine RBC (Auto) U Hyaline Cast (Auto) U Epithel Cells (Auto) Urine Bacteria (Auto) Urine Mucus (Auto) Urine Culture Reflexed Urine Glucose Urine Opiates Level POSITIVE Ur Methadone NEGATIVE Urine Barbiturates NEGATIVE Ur Phencyclidine (PCP) NEGATIVE Urine Amphetamine NEGATIVE U Benzodiazepine Level NEGATIVE Urine Cocaine NEGATIVE Urine Marijuana (THC) NEGATIVE 09/29/18 09/29/18 09/29/18 23:54 23:52 23:52 WBC RBC Hgb Hct MCV MCH MCHC RDW Plt Count MPV Gran % Eos # (Auto) Absolute Lymphs (auto) Absolute Monos (auto) Lymphocytes % Monocytes % Eosinophils % Basophils % Absolute Granulocytes Basophils # D-Dimer 482 Sodium Potassium Chloride Carbon Dioxide Anion Gap BUN Creatinine Estimated GFR Glucose Calcium Magnesium Total Bilirubin AST ALT Alkaline Phosphatase Creatine Kinase 140 Troponin I NT-Pro-B Natriuret Pep 129 Serum Total Protein Albumin Triglycerides Cholesterol LDL Cholesterol HDL Cholesterol Heart Disease Risk Ratio Urine Color YELLOW Urine Appearance SLIGHTLY CLOUDY Urine pH 5.0 Ur Specific [place] 1.017 Urine Protein NEGATIVE Urine Ketones NEGATIVE Urine Blood SMALL Urine Nitrite NEGATIVE Urine Bilirubin NEGATIVE Urine Urobilinogen NEGATIVE Ur Leukocyte Esterase NEGATIVE Urine WBC (Auto) 0-2 Urine RBC (Auto) 3-5 U Hyaline Cast (Auto) 26-50 U Epithel Cells (Auto) RARE Urine Bacteria (Auto) RARE Urine Mucus (Auto) SLIGHT Urine Culture Reflexed NO Urine Glucose NEGATIVE Urine Opiates Level Ur Methadone Urine Barbiturates Ur Phencyclidine (PCP) Urine Amphetamine U Benzodiazepine Level Urine Cocaine Urine Marijuana (THC) 09/29/18 09/29/18 09/29/18 23:52 23:52 23:30 WBC 16.1 H RBC 4.67 Hgb 15.0 Hct 45.0 MCV 96.4 MCH 32.1 H MCHC 33.3 RDW 13.5 Plt Count 188 MPV 9.9 H Gran % 63.4 Eos # (Auto) 0.17 Absolute Lymphs (auto) 4.42 Absolute Monos (auto) 1.28 Lymphocytes % 27.4 Monocytes % 7.9 Eosinophils % 1.1 Basophils % 0.2 Absolute Granulocytes 10.21 H Basophils # 0.04 D-Dimer Sodium 142 Potassium 3.9 Chloride 98 Carbon Dioxide 25 Anion Gap 22.8 H BUN 21 H Creatinine 1.79 H Estimated GFR 42.8 Glucose 103 Calcium 10.6 H Magnesium 1.7 Total Bilirubin 0.60 AST 56 ALT 36 Alkaline Phosphatase 83 Creatine Kinase Troponin I 0.030 NT-Pro-B Natriuret Pep Serum Total Protein 9.3 H Albumin 4.7 Triglycerides Cholesterol LDL Cholesterol HDL Cholesterol Heart Disease Risk Ratio Urine Color Urine Appearance Urine pH Ur Specific [place] Urine Protein Urine Ketones Urine Blood Urine Nitrite Urine Bilirubin Urine Urobilinogen Ur Leukocyte Esterase Urine WBC (Auto) Urine RBC (Auto) U Hyaline Cast (Auto) U Epithel Cells (Auto) Urine Bacteria (Auto) Urine Mucus (Auto) Urine Culture Reflexed Urine Glucose Urine Opiates Level Ur Methadone Urine Barbiturates Ur Phencyclidine (PCP) Urine Amphetamine U Benzodiazepine Level Urine Cocaine Urine Marijuana (THC) Orders (Last 24 hours) Category Date Time Status Bedrest with BRP/BSC Activity 09/30/18 00:55 Active Accucheck ACHS Care 09/30/18 00:55 Active Manager Materials Management STAT Care 09/29/18 23:31 Active Code Status Order ROUTINE Care 09/30/18 00:55 Active EKG-ER Only STAT Care 09/29/18 23:30 Active IV Care Q6H Care 09/30/18 00:55 Active IV Insertion STAT Care 09/29/18 23:30 Active Implement Chest Pain Pathway ROUTINE Care 09/30/18 00:55 Active Orthostatic Vital Signs STAT Care 09/29/18 23:[address] in Observation ROUTINE Care 09/30/18 00:55 Active Mike Cavanaugh, Apply ROUTINE Care 09/30/18 00:55 Active Telemetry q4h Care 09/30/18 00:57 Completed Telemetry q6h Care 09/30/18 00:55 Active Weight,Daily 0600 Care 09/30/18 00:55 Active Cardiac Diet Diet 09/30/18 Breakfast Active Nutritional Admission Screen once Diet 09/30/18 02:50 Active CHEST 1 VIEW (PORTABLE) Stat Exams 09/29/18 23:30 Completed HEAD WITHOUT CONTRAST [CT] Stat Exams 09/29/18 23:31 Completed CBC W DIFF Stat Lab 09/29/18 23:52 Completed CK-Creatinine Phosphokinase Stat Lab 09/29/18 23:52 Completed CMP Stat Lab 09/29/18 23:52 Completed D-DIMER QUANTITATION Stat Lab 09/29/18 23:52 Completed LIPID PROFILE AM.LAB Lab 09/30/18 05:25 Completed MAGNESIUM Stat Lab 09/29/18 23:52 Completed NT PRO BNP Stat Lab 09/29/18 23:52 Completed TROPONIN Q3H Lab 09/29/18 23:30 Completed TROPONIN Q3H Lab 09/30/18 02:38 Completed TROPONIN Q3H Lab 09/30/18 05:25 Completed TROPONIN Q3H Lab 09/30/18 08:40 Completed TROPONIN Q3H Lab 09/30/18 11:37 Completed UA W/RFX UR CULTURE Stat Lab 09/29/18 23:54 Completed Urine Triage Profile Stat Lab 09/29/18 23:54 Completed Acetaminophen 325 mg [Tylenol 325 mg] Med 09/30/18 00:55 Active 650 mg PO Q4H PRN PRN Allopurinol 300 mg [Zyloprim 300 mg] Med 09/30/18 22:00 Active 300 mg PO HS Aspirin EC 325 mg [Ecotrin 325 MG] Med 09/30/18 10:00 Active 325 mg PO DAILY Cyclobenzaprine HCl 10 mg [Cyclobenzaprine 10 MG] Med 09/30/18 22:00 Active 10 mg PO HS Ergocalciferol (Vitamin D2) [Vitamin D2] Med 10/04/18 10:00 Active 50,000 unit PO Q7D Fenofibrate,Micronized 145 mg* [Tricor 145 MG] Med 09/30/18 22:00 Active 72.5 mg PO HS Folic Acid 1 mg [Folate 1 mg] Med 09/30/18 10:00 Active 1 mg PO BID Gabapentin 400 mg [Neurontin 400 MG] Med 09/30/18 10:00 Active 800 mg PO BID Hydrochlorothiazide 25 mg [hydroDIURIL 25 MG] Med 09/30/18 10:00 Active 25 mg PO DAILY Insulin Aspart [NovoLOG Insulin] Med 09/30/18 00:55 Active See Dose Instructions SQ PRN PRN Lisinopril 10 mg [Zestril 10 MG] Med 09/30/18 10:00 Active 10 mg PO DAILY Mag Hydrox/Al Hydrox/Simeth [Maalox Es 30 ml Unit Med 09/30/18 00:55 Active Dose] 30 ml PO Q4H PRN PRN Magnesium Hydroxide 30 ml [Milk of Magnesia 30 ml Med 09/30/18 00:55 Active ] 30 - 60 ml PO QDP PRN Medication Intervention Med 09/30/18 10:45 Active 1 each MC .RN TO CHECK ON Metformin HCl Xr 500 mg [Glucophage XR 500 MG] Med 09/30/18 22:00 Active 1,000 mg PO HS Metoprolol Tartrate 50 mg [Lopressor 50 MG] Med 09/30/18 22:00 Active 50 mg PO HS NaCl 0.9% 1000 ml [Sodium Chloride 0.9% 1000 ML] 1,000 Med 09/30/18 01:00 Active ml IV 100 mls/hr NaCl 0.9% 500 ml [Sodium Chloride 0.9% 500 ML] 500 ml Med 09/30/18 01:00 Discontinued IV 100 mls/hr Ondansetron HCl 4 mg/2 ml [Zofran 4 MG/2 ML VIAL] Med 09/30/18 00:55 Active 4 mg IV Q4H PRN PRN Ondansetron HCl 4 mg/2 ml [Zofran 4 MG/2 ML VIAL] Med 09/30/18 00:49 Discontinued 4 mg IV STAT ONE Oxycodone / APAP 10/325 mg [Oxycodone-Acetaminophen Med 09/30/18 09:49 Active 10-325] 1 tab PO Q6HPRN PRN Oxycodone HCl Cr 10 mg [Oxycontin 10 MG ER] Med 09/30/18 10:00 Active 10 mg PO BID PANTOPRAZOLE 40 mg Tablet [Protonix 40MG Tablet] Med 09/30/18 10:00 Active 40 mg PO DAILY Senna/Docusate Sodium Tab [Senokot-S Tablet] Med 09/30/18 00:55 Active 2 udtab PO BID PRN PRN Simvastatin 10 mg [Zocor 10MG] Med 09/30/18 10:00 Active 10 mg PO DAILY Sitagliptin Phosphate 50 MG [Januvia 50 MG] Med 09/30/18 22:00 Active 100 mg PO HS EKG ROUTINE RT 09/30/18 06:47 Completed EKG ROUTINE RT 10/01/18 05:00 Active EKG ROUTINE RT 10/02/18 05:00 Active EKG ROUTINE RT 10/03/18 05:00 Active Oxygen NASAL CANNULA 2 lpm RT 09/30/18 00:56 Active Pulse Oximetry Q4H RT 09/30/18 00:55 Active Respiratory Therapy Assessment DAILY RT 09/30/18 07:30 Active Smoking Cessation Education ONCE RT 09/30/18 02:50 Completed - Vitals & Intake/Output Vital Signs: Vital Signs Temperature 97.3 F 09/30/18 07:32 Pulse Rate 71 09/30/18 07:32 Respiratory Rate 20 09/30/18 07:32 Blood Pressure 129/64 09/30/18 07:32 O2 Sat by Pulse Oximetry 96 09/30/18 12:00 Intake & Output: Intake & Output 09/28/18 09/29/18 09/30/18 10/01/18 11:59 11:59 11:59 11:59 Intake Total 480 Balance 480 Weight 161.4 kg - Lab Result Diagrams: 09/29/18 23:52 09/29/18 23:52 Lab Results-Last 24 Hrs: Accuchecks Date 09/30/18 Date 09/30/18 Time 11:30 Time 07:30 Accucheck Value: 141 Accucheck Value: 119 Lab Results-Last 24 Hours 09/29/18 09/29/18 09/29/18 Range/Units 23:30 23:52 23:52 WBC 16.1 H (4.0-10.5) K/mm3 RBC 4.67 (4.1-5.6) M/mm3 Hgb 15.0 (12.5-18.0) gm/dl Hct 45.0 (42-50) % MCV 96.4 (78-100) fl MCH 32.1 H (26-32) pg MCHC 33.3 (32-36) g/dl RDW 13.5 (11.5-14.0) % Plt Count 188 (150-450) K/mm3 MPV 9.9 H (6-9.5) fl Gran % 63.4 (36.0-66.0) % Eos # (Auto) 0.17 (0-0.5) Absolute Lymphs (auto) 4.42 (1.0-4.6) Absolute Monos (auto) 1.28 (0.0-1.3) Lymphocytes % 27.4 (24.0-44.0) % Monocytes % 7.9 (0.0-12.0) % Eosinophils % 1.1 (0.00-5.0) % Basophils % 0.2 (0.0-0.4) % Absolute Granulocytes 10.21 H (1.4-6.9) Basophils # 0.04 (0-0.4) D-Dimer (215-500) ng/mL Sodium 142 (137-145) mmol/L Potassium 3.9 (3.5-5.1) mmol/L Chloride 98 (98-107) mmol/L Carbon Dioxide 25 (22-30) mmol/L Anion Gap 22.8 H (5-15) MEQ/L BUN 21 H (9-20) mg/dL Creatinine 1.79 H (0.66-1.25) mg/dL Estimated GFR 42.8 ML/MIN Glucose 103 (74-106) mg/dL Calcium 10.6 H (8.4-10.2) mg/dL Magnesium 1.7 (1.6-2.3) mg/dL Total Bilirubin 0.60 (0.2-1.3) mg/dL AST 56 (17-59) U/L ALT 36 (0-50) U/L Alkaline Phosphatase 83 (38-126) U/L Creatine Kinase (55-170) U/L Troponin I 0.030 (0.000-0.034) ng/mL NT-Pro-B Natriuret Pep (0-900) pg/mL Serum Total Protein 9.3 H (6.3-8.2) g/dL Albumin 4.7 (3.5-5.0) g/dL Triglycerides (30-150) mg/dL Cholesterol (50-200) mg/dL LDL Cholesterol (30-100) mg/dL HDL Cholesterol (40-60) mg/dL Heart Disease Risk Ratio Urine Color (YELLOW) Urine Appearance (CLEAR) Urine pH (5-6) Ur Specific [place] (1.005-1.025) Urine Protein (Negative) Urine Ketones (NEGATIVE) Urine Blood (0-5) Steve/ul Urine Nitrite (NEGATIVE) Urine Bilirubin (NEGATIVE) Urine Urobilinogen (0-1) mg/dL Ur Leukocyte Esterase (NEGATIVE) Urine WBC (Auto) (0-5) /HPF Urine RBC (Auto) (0-2) /HPF U Hyaline Cast (Auto) (0-2) /LPF U Epithel Cells (Auto) (FEW) /HPF Urine Bacteria (Auto) (NEGATIVE) /HPF Urine Mucus (Auto) (NEGATIVE) /HPF Urine Culture Reflexed (NO) Urine Glucose (NEGATIVE) mg/dL Urine Opiates Level (NEGATIVE) Ur Methadone (NEGATIVE) Urine Barbiturates (NEGATIVE) Ur Phencyclidine (PCP) (NEGATIVE) Urine Amphetamine (NEGATIVE) U Benzodiazepine Level (NEGATIVE) Urine Cocaine (NEGATIVE) Urine Marijuana (THC) (NEGATIVE) 09/29/18 09/29/18 09/29/18 Range/Units 23:52 23:52 23:54 WBC (4.0-10.5) K/mm3 RBC (4.1-5.6) M/mm3 Hgb (12.5-18.0) gm/dl Hct (42-50) % MCV (78-100) fl MCH (26-32) pg MCHC (32-36) g/dl RDW (11.5-14.0) % Plt Count (150-450) K/mm3 MPV (6-9.5) fl Gran % (36.0-66.0) % Eos # (Auto) (0-0.5) Absolute Lymphs (auto) (1.0-4.6) Absolute Monos (auto) (0.0-1.3) Lymphocytes % (24.0-44.0) % Monocytes % (0.0-12.0) % Eosinophils % (0.00-5.0) % Basophils % (0.0-0.4) % Absolute Granulocytes (1.4-6.9) Basophils # (0-0.4) D-Dimer 482 (215-500) ng/mL Sodium (137-145) mmol/L Potassium (3.5-5.1) mmol/L Chloride (98-107) mmol/L Carbon Dioxide (22-30) mmol/L Anion Gap (5-15) MEQ/L BUN (9-20) mg/dL Creatinine (0.66-1.25) mg/dL Estimated GFR ML/MIN Glucose (74-106) mg/dL Calcium (8.4-10.2) mg/dL Magnesium (1.6-2.3) mg/dL Total Bilirubin (0.2-1.3) mg/dL AST (17-59) U/L ALT (0-50) U/L Alkaline Phosphatase (38-126) U/L Creatine Kinase 140 (55-170) U/L Troponin I (0.000-0.034) ng/mL NT-Pro-B Natriuret Pep 129 (0-900) pg/mL Serum Total Protein (6.3-8.2) g/dL Albumin (3.5-5.0) g/dL Triglycerides (30-150) mg/dL Cholesterol (50-200) mg/dL LDL Cholesterol (30-100) mg/dL HDL Cholesterol (40-60) mg/dL Heart Disease Risk Ratio Urine Color YELLOW (YELLOW) Urine Appearance SLIGHTLY CLOUDY (CLEAR) Urine pH 5.0 (5-6) Ur Specific [place] 1.017 (1.005-1.025) Urine Protein NEGATIVE (Negative) Urine Ketones NEGATIVE (NEGATIVE) Urine Blood SMALL (0-5) Steve/ul Urine Nitrite NEGATIVE (NEGATIVE) Urine Bilirubin NEGATIVE (NEGATIVE) Urine Urobilinogen NEGATIVE (0-1) mg/dL Ur Leukocyte Esterase NEGATIVE (NEGATIVE) Urine WBC (Auto) 0-2 (0-5) /HPF Urine RBC (Auto) 3-5 (0-2) /HPF U Hyaline Cast (Auto) 26-50 (0-2) /LPF U Epithel Cells (Auto) RARE (FEW) /HPF Urine Bacteria (Auto) RARE (NEGATIVE) /HPF Urine Mucus (Auto) SLIGHT (NEGATIVE) /HPF Urine Culture Reflexed NO (NO) Urine Glucose NEGATIVE (NEGATIVE) mg/dL Urine Opiates Level (NEGATIVE) Ur Methadone (NEGATIVE) Urine Barbiturates (NEGATIVE) Ur Phencyclidine (PCP) (NEGATIVE) Urine Amphetamine (NEGATIVE) U Benzodiazepine Level (NEGATIVE) Urine Cocaine (NEGATIVE) Urine Marijuana (THC) (NEGATIVE) 09/29/18 09/30/18 09/30/18 Range/Units 23:54 02:38 05:25 WBC (4.0-10.5) K/mm3 RBC (4.1-5.6) M/mm3 Hgb (12.5-18.0) gm/dl Hct (42-50) % MCV (78-100) fl MCH (26-32) pg MCHC (32-36) g/dl RDW (11.5-14.0) % Plt Count (150-450) K/mm3 MPV (6-9.5) fl Gran % (36.0-66.0) % Eos # (Auto) (0-0.5) Absolute Lymphs (auto) (1.0-4.6) Absolute Monos (auto) (0.0-1.3) Lymphocytes % (24.0-44.0) % Monocytes % (0.0-12.0) % Eosinophils % (0.00-5.0) % Basophils % (0.0-0.4) % Absolute Granulocytes (1.4-6.9) Basophils # (0-0.4) D-Dimer (215-500) ng/mL Sodium (137-145) mmol/L Potassium (3.5-5.1) mmol/L Chloride (98-107) mmol/L Carbon Dioxide (22-30) mmol/L Anion Gap (5-15) MEQ/L BUN (9-20) mg/dL Creatinine (0.66-1.25) mg/dL Estimated GFR ML/MIN Glucose (74-106) mg/dL Calcium (8.4-10.2) mg/dL Magnesium (1.6-2.3) mg/dL Total Bilirubin (0.2-1.3) mg/dL AST (17-59) U/L ALT (0-50) U/L Alkaline Phosphatase (38-126) U/L Creatine Kinase (55-170) U/L Troponin I 0.027 0.024 (0.000-0.034) ng/mL NT-Pro-B Natriuret Pep (0-900) pg/mL Serum Total Protein (6.3-8.2) g/dL Albumin (3.5-5.0) g/dL Triglycerides (30-150) mg/dL Cholesterol (50-200) mg/dL LDL Cholesterol (30-100) mg/dL HDL Cholesterol (40-60) mg/dL Heart Disease Risk Ratio Urine Color (YELLOW) Urine Appearance (CLEAR) Urine pH (5-6) Ur Specific [place] (1.005-1.025) Urine Protein (Negative) Urine Ketones (NEGATIVE) Urine Blood (0-5) Steve/ul Urine Nitrite (NEGATIVE) Urine Bilirubin (NEGATIVE) Urine Urobilinogen (0-1) mg/dL Ur Leukocyte Esterase (NEGATIVE) Urine WBC (Auto) (0-5) /HPF Urine RBC (Auto) (0-2) /HPF U Hyaline Cast (Auto) (0-2) /LPF U Epithel Cells (Auto) (FEW) /HPF Urine Bacteria (Auto) (NEGATIVE) /HPF Urine Mucus (Auto) (NEGATIVE) /HPF Urine Culture Reflexed (NO) Urine Glucose (NEGATIVE) mg/dL Urine Opiates Level POSITIVE (NEGATIVE) Ur Methadone NEGATIVE (NEGATIVE) Urine Barbiturates NEGATIVE (NEGATIVE) Ur Phencyclidine (PCP) NEGATIVE (NEGATIVE) Urine Amphetamine NEGATIVE (NEGATIVE) U Benzodiazepine Level NEGATIVE (NEGATIVE) Urine Cocaine NEGATIVE (NEGATIVE) Urine Marijuana (THC) NEGATIVE (NEGATIVE) 09/30/18 09/30/18 09/30/18 Range/Units 05:25 08:40 11:37 WBC (4.0-10.5) K/mm3 RBC (4.1-5.6) M/mm3 Hgb (12.5-18.0) gm/dl Hct (42-50) % MCV (78-100) fl MCH (26-32) pg MCHC (32-36) g/dl RDW (11.5-14.0) % Plt Count (150-450) K/mm3 MPV (6-9.5) fl Gran % (36.0-66.0) % Eos # (Auto) (0-0.5) Absolute Lymphs (auto) (1.0-4.6) Absolute Monos (auto) (0.0-1.3) Lymphocytes % (24.0-44.0) % Monocytes % (0.0-12.0) % Eosinophils % (0.00-5.0) % Basophils % (0.0-0.4) % Absolute Granulocytes (1.4-6.9) Basophils # (0-0.4) D-Dimer (215-500) ng/mL Sodium (137-145) mmol/L Potassium (3.5-5.1) mmol/L Chloride (98-107) mmol/L Carbon Dioxide (22-30) mmol/L Anion Gap (5-15) MEQ/L BUN (9-20) mg/dL Creatinine (0.66-1.25) mg/dL Estimated GFR ML/MIN Glucose (74-106) mg/dL Calcium (8.4-10.2) mg/dL Magnesium (1.6-2.3) mg/dL Total Bilirubin (0.2-1.3) mg/dL AST (17-59) U/L ALT (0-50) U/L Alkaline Phosphatase (38-126) U/L Creatine Kinase (55-170) U/L Troponin I 0.030 0.029 (0.000-0.034) ng/mL NT-Pro-B Natriuret Pep (0-900) pg/mL Serum Total Protein (6.3-8.2) g/dL Albumin (3.5-5.0) g/dL Triglycerides 253 H (30-150) mg/dL Cholesterol 107 (50-200) mg/dL LDL Cholesterol 59 (30-100) mg/dL HDL Cholesterol 24 L (40-60) mg/dL Heart Disease Risk Ratio 4.4 Urine Color (YELLOW) Urine Appearance (CLEAR) Urine pH (5-6) Ur Specific [place] (1.005-1.025) Urine Protein (Negative) Urine Ketones (NEGATIVE) Urine Blood (0-5) Steve/ul Urine Nitrite (NEGATIVE) Urine Bilirubin (NEGATIVE) Urine Urobilinogen (0-1) mg/dL Ur Leukocyte Esterase (NEGATIVE) Urine WBC (Auto) (0-5) /HPF Urine RBC (Auto) (0-2) /HPF U Hyaline Cast (Auto) (0-2) /LPF U Epithel Cells (Auto) (FEW) /HPF Urine Bacteria (Auto) (NEGATIVE) /HPF Urine Mucus (Auto) (NEGATIVE) /HPF Urine Culture Reflexed (NO) Urine Glucose (NEGATIVE) mg/dL Urine Opiates Level (NEGATIVE) Ur Methadone (NEGATIVE) Urine Barbiturates (NEGATIVE) Ur Phencyclidine (PCP) (NEGATIVE) Urine Amphetamine (NEGATIVE) U Benzodiazepine Level (NEGATIVE) Urine Cocaine (NEGATIVE) Urine Marijuana (THC) (NEGATIVE) Micro Results-Entire Visit: Accuchecks Date 09/30/18 Date 09/30/18 Time 11:30 Time 07:30 Accucheck Value: 141 Accucheck Value: 119 - Radiology Exams Ordered Rad Exams-Entire Visit: Radiology Procedures Category Date Time Status CHEST 1 VIEW (PORTABLE) Stat Exams 09/29/18 23:30 Completed HEAD WITHOUT CONTRAST [CT] Stat Exams 09/29/18 23:31 Completed - Procedures and Test Procedures and Tests throughout Hospitalization: Therapy Orders & Screens 09/30/18 00:56 Oxygen NASAL CANNULA 2 lpm Comment: chest pain Diagnosis: CP R/O CO 09/30/18 02:50 Smoking Cessation Education ONCE Comment: Diagnosis: CP r/o CO; dizziness; dehydration Smoking Status: Current every day smoker How long have you smoked: 34 years Have you smoked in the past 12 months: Yes Approximately how many cigarettes per day: 1ppd Do you dip or chew tobacco: No If,Former Smoker,when did you quit: 3 WKS AGO 09/30/18 06:47 EKG ROUTINE Comment: Diagnosis: CP r/o CO; dizziness; dehydration 09/30/18 07:30 Respiratory Therapy Assessment DAILY Comment: Diagnosis: CP r/o CO; dizziness; dehydration 10/01/18 05:00 EKG ROUTINE Comment: Diagnosis: CP r/o CO; dizziness; dehydration 10/02/18 05:00 EKG ROUTINE Comment: Diagnosis: CP r/o CO; dizziness; dehydration 10/03/18 05:00 EKG ROUTINE Comment: Diagnosis: CP r/o CO; dizziness; dehydration - Discharge Discharge Date: 09/30/18 Disposition: Home, Self-Care Condition: Stable Prescriptions: Continue Oxycodone HCl [Oxycodone HCl ER] 10 mg PO BID Atorvastatin Calcium 10 mg PO DAILY Allopurinol 300 mg [Zyloprim 300 mg] 300 mg PO HS Cyclobenzaprine HCl 10 mg [Cyclobenzaprine 10 MG] 10 mg PO HS Folic Acid 1 mg PO BID Fenofibrate Nanocrystallized [Fenofibrate] 48 mg PO HS hydroCHLOROthiazide [Hydrochlorothiazide] 25 mg PO DAILY Sitagliptin Phos/Metformin HCl [Janumet Xr 100-1,000 mg Tablet] 1 tab PO HS Lisinopril 10 mg [Zestril 10 MG] 10 mg PO DAILY Metoprolol Tartrate 50 mg [Lopressor 50 MG] 50 mg PO HS Omeprazole 40 mg PO DAILY Oxycodone / APAP 10/325 mg [Oxycodone-Acetaminophen 10-325] 1 tab PO Q6HPRN PRN PRN Reason: Moderate To Severe Pain Ergocalciferol (Vitamin D2) [Vitamin D2] 50,000 units PO WEEKLY Liraglutide [Victoza 2-Daniel] 18 mg SQ DAILY Gabapentin 800 mg PO BID Follow up with: JONAS SMITH MD [Primary Care Provider] - 1 Week
[2018-09-30 12:44] VITALS: BP 118/66; PULSE 69; O2SAT 99
[2018-09-30] MEDS ORDERED: Tricor 145 MG PO SCH (22:00)
[2018-09-30] MEDS ORDERED: Lopressor 50 MG PO SCH (22:00)
[2018-09-30] MEDS ORDERED: [UNRECOGNIZED DRUG - OTHER] PO SCH (22:00)
[2018-09-30] MEDS ORDERED: Januvia 50 MG PO SCH (22:00)
[2018-09-30] MEDS ORDERED: SITAGLIPTIN PHOS PO SCH (22:00)
[2018-09-30] MEDS ORDERED: Glucophage XR 500 MG PO SCH (22:00)
[2018-09-30] MEDS ORDERED: METFORMIN HCL PO SCH (22:00)
[2018-09-30] MEDS ORDERED: ZYLOPRIM 300 MG PO SCH (22:00)
[2018-09-30] MEDS ORDERED: Cyclobenzaprine 10 MG PO SCH (22:00)
[2018-10-04] MEDS ORDERED: VITAMIN D2 PO SCH (10:00)
== END 2018-09-30 13:40 | disposition home or self-care (01) ==
LOC: ED 22:35 → MED SURG 09-30 02:04
PROVIDERS: ADMIT General Practice; ATTEND General Practice
DX: E86.0 Dehydration (principal); R42 Dizziness and giddiness; E11.9 Type 2 diabetes mellitus without complications; R11.2 Nausea with vomiting, unspecified; I10 Essential (primary) hypertension; R06.02 Shortness of breath; Z79.899 Other long term (current) drug therapy; F17.200 Nicotine dependence, unspecified, uncomplicated
CPT/HCPCS: 36415; 70450; 71045; 80053; 80061; 80307; 81001; 82550; 82962; 83721; 83735; 83880; 84484; 85025; 85379; 93005; 93041; 93268; 94760; 96374; 99285; G0378; 96360; J2405; A9270-GY

== ENCOUNTER 2019-05-16 12:39 | Observation (INO) | payer OTHER ==
--- NOTE | 2019-05-16 12:44 | ERPHSYRPT ---
- History of Present Illness Time Seen by Provider: 05/16/19 12:44 Source: patient, family Exam Limitations: clinical condition Physician History: 53 y/o obese white male with known cardiac hx, presents with one day h/o right shoulder and arm pain as well as dizziness and weakness. pt is on oxycontin and oxycodone medication for chronic pain issues. no new meds. no acute trauma. pts client relations associate is dr. sun Timing/Duration: yesterday Severity: moderate Deficits: decrease ability to stand (secondary to weakness.) Baseline/Normal Cognition: alert oriented x 3 Current Cognition: poor alertness Baseline Gait: walks w/o assistance Associated Symptoms: weakness Allergies/Adverse Reactions: codeine [Codeine] Adverse Reaction (Verified 05/16/19 13:07) Iodinated Contrast Media [IV Dye, Iodine Containing Contrast ] Adverse Reaction (Verified 05/16/19 13:07) Home Medications: Allopurinol 300 mg [Zyloprim 300 mg] 300 mg PO HS 09/30/18 [History] Atorvastatin Calcium 10 mg PO DAILY 09/30/18 [History] Cyclobenzaprine HCl 10 mg [Cyclobenzaprine 10 MG] 10 mg PO HS 09/30/18 [ History] Ergocalciferol (Vitamin D2) [Vitamin D2] 50,000 units PO WEEKLY 09/30/18 [ History] Fenofibrate Nanocrystallized [Fenofibrate] 48 mg PO HS 09/30/18 [History] Folic Acid 1 mg PO BID 09/30/18 [History] Gabapentin 800 mg PO BID 09/30/18 [History] Liraglutide [Victoza 2-Daniel] 18 mg SQ DAILY 09/30/18 [History] Lisinopril 10 mg [Zestril 10 MG] 10 mg PO DAILY 09/30/18 [History] Metoprolol Tartrate 50 mg [Lopressor 50 MG] 50 mg PO HS 09/30/18 [History] Omeprazole 40 mg PO DAILY 09/30/18 [History] Oxycodone / APAP 10/325 mg [Oxycodone-Acetaminophen 10-325] 1 tab PO Q6HPRN PRN 09/30/18 [History] Oxycodone HCl [Oxycodone HCl ER] 10 mg PO BID 09/30/18 [History] Sitagliptin Phos/Metformin HCl [Janumet Xr 100-1,000 mg Tablet] 1 tab PO HS [History] hydroCHLOROthiazide [Hydrochlorothiazide] 25 mg PO DAILY 09/30/18 [History] Hx Tetanus, Diphtheria Vaccination/Date Given: Yes Hx Influenza Vaccination/Date Given: No Hx Pneumococcal Vaccination/Date Given: No - Review of Systems Constitutional: Weakness Eyes: No Symptoms Ears, Nose, & Throat: No Symptoms Respiratory: No Symptoms Cardiac: No Symptoms Abdominal/Gastrointestinal: No Symptoms Genitourinary Symptoms: No Symptoms Musculoskeletal: Other (pain right shoulder and arm) Skin: No Symptoms Neurological: No Symptoms Psychological: No Symptoms Endocrine: No Symptoms Hematologic/Lymphatic: No Symptoms Immunological/Allergic: No Symptoms All Other Systems: Reviewed and Negative - Past Medical History Pertinent Past Medical History: Yes Neurological History: No Pertinent History ENT History: Cataracts Cardiac History: Coronary Artery Disease, Hypertension Respiratory History: Sleep Apnea Endocrine Medical History: No Pertinent History Musculoskeletal History: Arthritis, Fractures GI Medical History: Gallbladder Disease History: No Pertinent History Psycho-Social History: Depression Male Reproductive Disorders: No Pertinent History Other Medical History: LOW TESTOSTERONE - GOUT,cardiac catherization- has blockages that dont require treatment at this time - Past Surgical History Past Surgical History: Yes Neuro Surgical History: No Pertinent History Cardiac: Cardiac Catheterization Respiratory: No Pertinent History Gastrointestinal: No Pertinent History, Cholecystectomy Genitourinary: No Pertinent History Musculoskeletal: Orthopedic Surgery Male Surgical History: No Pertinent History Other Surgical History: left wrist , diabetic neuropathy, small blockages no treatment at this time, teeth removal - Social History Smoking Status: Current every day smoker How long have you smoked: 34 years Exposure to second hand smoke: Yes Drug Use: none Patient Lives Alone: No Significant Family History: heart disease, diabetes, hypertension, stroke - Nursing Vital Signs Nursing Vital Signs: Initial Vital Signs Temperature 97.6 F 05/16/19 12:51 Pulse Rate 63 05/16/19 12:51 Respiratory Rate 20 05/16/19 12:51 Blood Pressure 141/77 05/16/19 12:51 O2 Sat by Pulse Oximetry 96 05/16/19 12:51 Pain Scale Pain Intensity 0 - [place] Coma Scale Best Eye Response (Valerie): (3) open to voice Best Verbal Response (Valerie): (5) oriented Best Motor Response ([place]): (6) obeys commands Valerie Total: 14 - Physical Exam General Appearance: anxiety, lethargy, obese Eye Exam: bilateral eye: normal inspection, PERRL, EOMI Ears, Nose, Throat Exam: normal ENT inspection, moist mucous membranes Neck Exam: normal inspection, non-tender, supple, full range of motion Respiratory: normal breath sounds, lungs clear, airway intact, No chest tenderness, No respiratory distress Cardiovascular: regular rate/rhythm, normal heart sounds, normal peripheral pulses Gastrointestinal: soft, normal bowel sounds, No tenderness Rectal Exam: not done Back Exam: normal inspection, normal range of motion, No CVA tenderness, No vertebral tenderness Extremity Exam: normal inspection, normal range of motion, pelvis stable Mental Status: oriented x 3, cooperative animal doctor Exam: normal hearing, normal speech, PERRL, tongue midline Coordination/Gait: normal finger to nose Motor/Sensory: no motor deficit, no sensory deficit Skin Exam: normal color, warm, dry SpO2 Interpretation: normal O2 Delivery: Room Air - Course Nursing assessment & vital signs reviewed: Yes EKG Interpreted by Me: RATE (59), Sinus Rhythm, NORMAL AXIS, NORMAL INTERVALS, NORMAL QRS, Other (comparison ekg. 09/30/18. new finding of an old anteroseptal mi) Ordered Tests: Active Orders 24 hr Category Date Time Status Delivery Technician STAT Care 05/16/19 13:11 Active Clean Catch Urine Specimen STAT Care 05/16/19 13:16 Active EKG-ER Only STAT Care 05/16/19 13:10 Active IV Insertion STAT Care 05/16/19 13:10 Active Pulse Oximetry (ED) STAT Care 05/16/19 13:10 Active HEAD WITHOUT CONTRAST [CT] Stat Exams 05/16/19 13:11 Completed CBC W DIFF Stat Lab 05/16/19 13:17 Completed CMP Stat Lab 05/16/19 13:10 Completed NT PRO BNP Stat Lab 05/16/19 13:10 Completed PROTIME WITH INR Stat Lab 05/16/19 13:10 Completed TROPONIN Q3H Lab 05/16/19 13:10 Completed TROPONIN Q3H Lab 05/16/19 16:15 Ordered TROPONIN Q3H Lab 05/16/19 19:15 Ordered TROPONIN Q3H Lab 05/16/19 22:15 Ordered TROPONIN Q3H Lab 05/17/19 01:15 Ordered TSH [TSH, 3RD Generation] Stat Lab 05/16/19 13:10 Completed UA W/RFX UR CULTURE Stat Lab 05/16/19 13:19 Completed Urine Triage Profile Stat Lab 05/16/19 Completed Transfer Order Routine Transfer 05/16/19 Ordered Medication Summary Generic Name Dose Route Start Last Admin Trade Name Lanny PRN Reason Stop Dose Admin Sodium Chloride 1,000 mls @ 100 mls/hr 05/16/19 13:15 05/16/19 13:38 Sodium Chloride 0.9% 1000 Ml IV 06/15/19 13:14 100 mls/hr .Q10H BEENA Administration Lab/Rad Data: Laboratory Result Diagrams 05/16/19 13:17 05/16/19 13:10 Laboratory Results 05/16/19 05/16/19 05/16/19 Range/Units Unknown 13:19 13:17 WBC 9.3 (4.0-10.5) K/mm3 RBC 4.25 (4.1-5.6) M/mm3 Hgb 13.3 (12.5-18.0) gm/dl Hct 40.5 L (42-50) % MCV 95.3 (78-100) fl MCH 31.3 (26-32) pg MCHC 32.8 (32-36) g/dl RDW 13.3 (11.5-14.0) % Plt Count 156 (150-450) K/mm3 MPV 10.0 H (7.5-11.0) fl Gran % 56.7 (36.0-66.0) % Eos # (Auto) 0.30 (0-0.5) Absolute Lymphs (auto) 2.90 (1.0-4.6) Absolute Monos (auto) 0.81 (0.0-1.3) Lymphocytes % 31.0 (24.0-44.0) % Monocytes % 8.7 (0.0-12.0) % Eosinophils % 3.2 (0.00-5.0) % Basophils % 0.4 (0.0-0.4) % Absolute Granulocytes 5.29 (1.4-6.9) Basophils # 0.04 (0-0.4) PT (8.83-12.87) SECONDS INR (0.8-3.0) Sodium (137-145) mmol/L Potassium (3.5-5.1) mmol/L Chloride (98-107) mmol/L Carbon Dioxide (22-30) mmol/L Anion Gap (5-15) MEQ/L BUN (9-20) mg/dL Creatinine (0.66-1.25) mg/dL Estimated GFR ML/MIN Glucose (74-106) mg/dL Calcium (8.4-10.2) mg/dL Total Bilirubin (0.2-1.3) mg/dL AST (17-59) U/L ALT (0-50) U/L Alkaline Phosphatase (38-126) U/L Troponin I (0.000-0.034) ng/mL NT-Pro-B Natriuret Pep (0-900) pg/mL Serum Total Protein (6.3-8.2) g/dL Albumin (3.5-5.0) g/dL TSH 3rd Generation (0.47-4.68) mIU/L Urine Color YELLOW (YELLOW) Urine Appearance CLEAR (CLEAR) Urine pH 6.0 (5-6) Ur Specific [place] 1.018 (1.005-1.025) Urine Protein NEGATIVE (Negative) Urine Ketones NEGATIVE (NEGATIVE) Urine Blood SMALL (0-5) Steve/ul Urine Nitrite NEGATIVE (NEGATIVE) Urine Bilirubin NEGATIVE (NEGATIVE) Urine Urobilinogen 4 (0-1) mg/dL Ur Leukocyte Esterase NEGATIVE (NEGATIVE) Urine WBC (Auto) 3-5 (0-5) /HPF Urine RBC (Auto) 6-10 (0-2) /HPF U Epithel Cells (Auto) RARE (FEW) /HPF Urine Bacteria (Auto) RARE (NEGATIVE) /HPF Urine Culture Reflexed NO (NO) Urine Glucose NEGATIVE (NEGATIVE) mg/dL Urine Opiates Level NEGATIVE (NEGATIVE) Ur Methadone NEGATIVE (NEGATIVE) Urine Barbiturates NEGATIVE (NEGATIVE) Ur Phencyclidine (PCP) NEGATIVE (NEGATIVE) Urine Amphetamine NEGATIVE (NEGATIVE) U Benzodiazepine Level NEGATIVE (NEGATIVE) Urine Cocaine NEGATIVE (NEGATIVE) Urine Marijuana (THC) NEGATIVE (NEGATIVE) 05/16/19 05/16/19 05/16/19 Range/Units 13:10 13:10 13:10 WBC (4.0-10.5) K/mm3 RBC (4.1-5.6) M/mm3 Hgb (12.5-18.0) gm/dl Hct (42-50) % MCV (78-100) fl MCH (26-32) pg MCHC (32-36) g/dl RDW (11.5-14.0) % Plt Count (150-450) K/mm3 MPV (7.5-11.0) fl Gran % (36.0-66.0) % Eos # (Auto) (0-0.5) Absolute Lymphs (auto) (1.0-4.6) Absolute Monos (auto) (0.0-1.3) Lymphocytes % (24.0-44.0) % Monocytes % (0.0-12.0) % Eosinophils % (0.00-5.0) % Basophils % (0.0-0.4) % Absolute Granulocytes (1.4-6.9) Basophils # (0-0.4) PT 13.1 H (8.83-12.87) SECONDS INR 1.16 (0.8-3.0) Sodium (137-145) mmol/L Potassium (3.5-5.1) mmol/L Chloride (98-107) mmol/L Carbon Dioxide (22-30) mmol/L Anion Gap (5-15) MEQ/L BUN (9-20) mg/dL Creatinine (0.66-1.25) mg/dL Estimated GFR ML/MIN Glucose (74-106) mg/dL Calcium (8.4-10.2) mg/dL Total Bilirubin (0.2-1.3) mg/dL AST (17-59) U/L ALT (0-50) U/L Alkaline Phosphatase (38-126) U/L Troponin I 0.036 H* (0.000-0.034) ng/mL NT-Pro-B Natriuret Pep (0-900) pg/mL Serum Total Protein (6.3-8.2) g/dL Albumin (3.5-5.0) g/dL TSH 3rd Generation 3.320 (0.47-4.68) mIU/L Urine Color (YELLOW) Urine Appearance (CLEAR) Urine pH (5-6) Ur Specific [place] (1.005-1.025) Urine Protein (Negative) Urine Ketones (NEGATIVE) Urine Blood (0-5) Steve/ul Urine Nitrite (NEGATIVE) Urine Bilirubin (NEGATIVE) Urine Urobilinogen (0-1) mg/dL Ur Leukocyte Esterase (NEGATIVE) Urine WBC (Auto) (0-5) /HPF Urine RBC (Auto) (0-2) /HPF U Epithel Cells (Auto) (FEW) /HPF Urine Bacteria (Auto) (NEGATIVE) /HPF Urine Culture Reflexed (NO) Urine Glucose (NEGATIVE) mg/dL Urine Opiates Level (NEGATIVE) Ur Methadone (NEGATIVE) Urine Barbiturates (NEGATIVE) Ur Phencyclidine (PCP) (NEGATIVE) Urine Amphetamine (NEGATIVE) U Benzodiazepine Level (NEGATIVE) Urine Cocaine (NEGATIVE) Urine Marijuana (THC) (NEGATIVE) 05/16/19 Range/Units 13:10 WBC (4.0-10.5) K/mm3 RBC (4.1-5.6) M/mm3 Hgb (12.5-18.0) gm/dl Hct (42-50) % MCV (78-100) fl MCH (26-32) pg MCHC (32-36) g/dl RDW (11.5-14.0) % Plt Count (150-450) K/mm3 MPV (7.5-11.0) fl Gran % (36.0-66.0) % Eos # (Auto) (0-0.5) Absolute Lymphs (auto) (1.0-4.6) Absolute Monos (auto) (0.0-1.3) Lymphocytes % (24.0-44.0) % Monocytes % (0.0-12.0) % Eosinophils % (0.00-5.0) % Basophils % (0.0-0.4) % Absolute Granulocytes (1.4-6.9) Basophils # (0-0.4) PT (8.83-12.87) SECONDS INR (0.8-3.0) Sodium 140 (137-145) mmol/L Potassium 3.8 (3.5-5.1) mmol/L Chloride 102 (98-107) mmol/L Carbon Dioxide 29 (22-30) mmol/L Anion Gap 12.7 (5-15) MEQ/L BUN 19 (9-20) mg/dL Creatinine 1.15 (0.66-1.25) mg/dL Estimated GFR > 60.0 ML/MIN Glucose 150 H (74-106) mg/dL Calcium 9.5 (8.4-10.2) mg/dL Total Bilirubin 0.50 (0.2-1.3) mg/dL AST 43 (17-59) U/L ALT 36 (0-50) U/L Alkaline Phosphatase 75 (38-126) U/L Troponin I (0.000-0.034) ng/mL NT-Pro-B Natriuret Pep 181 (0-900) pg/mL Serum Total Protein 8.8 H (6.3-8.2) g/dL Albumin 4.3 (3.5-5.0) g/dL TSH 3rd Generation (0.47-4.68) mIU/L Urine Color (YELLOW) Urine Appearance (CLEAR) Urine pH (5-6) Ur Specific [place] (1.005-1.025) Urine Protein (Negative) Urine Ketones (NEGATIVE) Urine Blood (0-5) Steve/ul Urine Nitrite (NEGATIVE) Urine Bilirubin (NEGATIVE) Urine Urobilinogen (0-1) mg/dL Ur Leukocyte Esterase (NEGATIVE) Urine WBC (Auto) (0-5) /HPF Urine RBC (Auto) (0-2) /HPF U Epithel Cells (Auto) (FEW) /HPF Urine Bacteria (Auto) (NEGATIVE) /HPF Urine Culture Reflexed (NO) Urine Glucose (NEGATIVE) mg/dL Urine Opiates Level (NEGATIVE) Ur Methadone (NEGATIVE) Urine Barbiturates (NEGATIVE) Ur Phencyclidine (PCP) (NEGATIVE) Urine Amphetamine (NEGATIVE) U Benzodiazepine Level (NEGATIVE) Urine Cocaine (NEGATIVE) Urine Marijuana (THC) (NEGATIVE) - Departure Departure Disposition: In-patient Admission Clinical Impression: Chest pain, Cardiac enzymes elevated Condition: Stable Critical Care Time: Yes Critical Care Time(excluding separately billable procedures): Critical 30-74 mins Referrals: JONAS SMITH MD [Primary Care Provider] -
[2019-05-16] MEDS ORDERED: Sodium Chloride 0.9% 1000 ML 1,000 ML IV SCH ×2 (13:15→16:54)
[2019-05-16 13:17] LABS: Absolute Neutrophil Ct (ANC) 5.29 (1.4-6.9); BASOPHIL % 0.4 % (0.0-0.4); Basophil (Absolute #) 0.04 (0-0.4); Eosinophil % 3.2 % (0.00-5.0); Hematocrit 40.5 % (42-50); Hemoglobin 13.3 gm/dl (12.5-18.0); Mean Cell Volume 95.3 fl (78-100); Mean Corpuscular Hemoglobin 31.3 pg (26-32); Mean Corpuscular Hgb Concent. 32.8 g/dl (32-36); Monocyte (Absolute #) 0.81 (0.0-1.3); Monocytes % 8.7 % (0.0-12.0); Neutrophil % 56.7 % (36.0-66.0); Platelet Count 156 K/mm3 (150-450); Red Blood Count 4.25 M/mm3 (4.1-5.6); Red Cell Distribution Width 13.3 % (11.5-14.0); White Blood Count 9.3 K/mm3 (4.0-10.5)
[2019-05-16] MEDS ORDERED: Sodium Chloride 0.9% 1000 ML 1,000 ML ONE (13:24)
[2019-05-16 13:25] LABS: INR 1.16 (0.8-3.0); PROTIME 13.1 SECONDS (8.83-12.87)
[2019-05-16 13:32] LABS: Appearance CLEAR (CLEAR); Bacteria RARE /HPF (NEGATIVE); Bilirubin NEGATIVE (NEGATIVE); Blood SMALL Ery/ul (0-5); Epithelial Cells RARE /HPF (FEW); Glucose NEGATIVE (NEGATIVE); Ketones NEGATIVE (NEGATIVE); Leukocyte Esterase NEGATIVE (NEGATIVE); Nitrite NEGATIVE (NEGATIVE); Protein,Urine Dip NEGATIVE (Negative); Specific Gravity 1.018 (1.005-1.025); Urobilinogen 4 mg/dL (0-1)
[2019-05-16 13:38] LABS: ALBUMIN 4.3 g/dL (3.5-5.0); ALKALINE PHOSPHATASE 75 U/L (38-126); ANION GAP 12.7 MEQ/L (5-15); BLOOD UREA NITROGEN 19 mg/dL (9-20); CHLORIDE 102 mmol/L (98-107); Calcium 9.5 mg/dL (8.4-10.2); Carbon Dioxide 29 mmol/L (22-30); Creatinine 1 1.15 mg/dL (0.66-1.25); Glucose 150 mg/dL (74-106); NT PRO BNP 181 pg/mL (0-900); Potassium 3.8 mmol/L (3.5-5.1); SGOT/AST 43 U/L (17-59); SGPT/ALT 36 U/L (0-50); SODIUM 140 mmol/L (137-145); Total Protein 8.8 g/dL (6.3-8.2)
[2019-05-16 13:40] LABS: Amphetamine,Urine NEGATIVE (NEGATIVE); Barbiturate,Urine NEGATIVE (NEGATIVE); Benzodiazepine,Urine NEGATIVE (NEGATIVE); Cocaine,Urine NEGATIVE (NEGATIVE); Methadone,Urine NEGATIVE (NEGATIVE); Opiate,Urine NEGATIVE (NEGATIVE); PCP,Urine NEGATIVE (NEGATIVE); THC,Urine NEGATIVE (NEGATIVE)
--- NOTE | 2019-05-16 13:43 | XRAY ---
Indication: Dizziness. Multiple contiguous axial images obtained through the head without contrast. Comparison: September 29, 2018. Again normal appearing brain parenchyma, ventricles, and bony calvarium. Visualized paranasal sinuses and mastoid air cells are clear. Impression: Continued normal CT head without contrast exam.
[2019-05-16] MEDS ORDERED: Zofran 4 MG/2 ML VIAL IV PRN (16:54)
[2019-05-16] MEDS ORDERED: TYLENOL 325 MG PO PRN (16:54)
[2019-05-16] MEDS: OXYCODONE-ACETAMINOPHEN 10-325 PO SCH (20:01)
[2019-05-16] MEDS: Cyclobenzaprine 10 MG PO SCH (21:30)
[2019-05-16] MEDS: FOLATE 1 MG PO SCH (21:31)
[2019-05-16] MEDS: Oxycontin 10 MG ER PO SCH (21:31)
[2019-05-16] MEDS ORDERED: Neurontin 400 MG PO SCH (22:00)
[2019-05-16] MEDS ORDERED: ZYLOPRIM 300 MG PO SCH (22:00)
[2019-05-16] MEDS ORDERED: Lopressor 50 MG PO SCH (22:00)
[2019-05-17 05:53] LABS: Absolute Neutrophil Ct (ANC) 3.36 (1.4-6.9); BASOPHIL % 0.5 % (0.0-0.4); Basophil (Absolute #) 0.04 (0-0.4); Eosinophil % 3.4 % (0.00-5.0); Eosinophil (Absolute #) 0.25 (0-0.5); Hematocrit 39.1 % (42-50); Hemoglobin 12.6 gm/dl (12.5-18.0); Lymphocyte (Absolute #) 3.18 (1.0-4.6); Lymphocytes % 42.9 % (24.0-44.0); Mean Corpuscular Hemoglobin 31.3 pg (26-32); Mean Corpuscular Hgb Concent. 32.2 g/dl (32-36); Mean Platelet Volume 10.5 fl (7.5-11.0); Monocyte (Absolute #) 0.58 (0.0-1.3); Monocytes % 7.8 % (0.0-12.0); Neutrophil % 45.4 % (36.0-66.0); Platelet Count 139 K/mm3 (150-450); Red Blood Count 4.03 M/mm3 (4.1-5.6); Red Cell Distribution Width 13.3 % (11.5-14.0); White Blood Count 7.4 K/mm3 (4.0-10.5)
[2019-05-17 06:36] LABS: ALBUMIN 3.9 g/dL (3.5-5.0); ALKALINE PHOSPHATASE 71 U/L (38-126); ANION GAP 11.3 MEQ/L (5-15); BLOOD UREA NITROGEN 17 mg/dL (9-20); CHLORIDE 104 mmol/L (98-107); Calcium 9.2 mg/dL (8.4-10.2); Carbon Dioxide 29 mmol/L (22-30); Creatinine 1 1.16 mg/dL (0.66-1.25); Glucose 107 mg/dL (74-106); NT PRO BNP 165 pg/mL (0-900); SGOT/AST 47 U/L (17-59); SGPT/ALT 36 U/L (0-50); SODIUM 140 mmol/L (137-145)
[2019-05-17 07:49] VITALS: BP 128/60; PULSE 64; O2SAT 97
[2019-05-17] MEDS: FOLATE 1 MG PO SCH (09:05)
[2019-05-17] MEDS: Oxycontin 10 MG ER PO SCH (09:05)
[2019-05-17] MEDS: OXYCODONE-ACETAMINOPHEN 10-325 PO SCH (09:06)
[2019-05-17] MEDS: Cyclobenzaprine 10 MG PO SCH (09:07)
[2019-05-17] MEDS ORDERED: Zestril 10 MG PO SCH (10:00)
[2019-05-17] MEDS ORDERED: Neurontin 400 MG PO SCH (10:00)
[2019-05-17] MEDS ORDERED: NON-FORMULARY ITEM (Atorvastatin Calcium [Atorvastatin Calcium] 10 MG) PO SCH (10:00)
[2019-05-17] MEDS ORDERED: FLUZONE QUAD 2019-2020 SYRINGE IM ONE (10:00)
[2019-05-17] MEDS ORDERED: hydroDIURIL 25 MG PO SCH (10:00)
[2019-05-17] MEDS ORDERED: Zocor 10MG PO SCH (10:00)
[2019-05-17] MEDS ORDERED: Protonix 40MG Tablet PO SCH (10:00)
--- NOTE | 2019-05-17 12:56 | PCM.SSS ---
History of Present Illness - Chief Complaint Chief Complaint: chest pain for 1 day, patient pssed out. History of Present Illness: Mr.HOLLINGSWORTH MORALES is a 53 year old male came to ER with syncopal episode and passed out at home, [place] ER workup was positive troponin - Review of Systems Constitutional: No Fever, No Chills Eyes: No Symptoms Ears, Nose, & Throat: No Symptoms Respiratory: No Cough, No Short Of Breath Cardiac: Chest Pain, Syncope, No Edema Abdominal/Gastrointestinal: No Abdominal Pain, No Nausea, No Vomiting, No Diarrhea Genitourinary Symptoms: No Dysuria Musculoskeletal: No Back Pain, No Neck Pain Skin: No Rash Neurological: No Dizziness, No Focal Weakness, No Sensory Changes Psychological: No Symptoms Endocrine: No Symptoms Hematologic/Lymphatic: No Symptoms Immunological/Allergic: No Symptoms Medications & Allergies Home Medications: Home Medication List Allopurinol 300 mg [Zyloprim 300 mg] 300 mg PO HS 09/30/18 [History Confirmed 05/16/19] Atorvastatin Calcium 10 mg PO DAILY 09/30/18 [History Confirmed 05/16/19] Cyclobenzaprine HCl 10 mg [Cyclobenzaprine 10 MG] 10 mg PO BID 09/30/18 [ History Confirmed 05/16/19] Ergocalciferol (Vitamin D2) [Vitamin D2] 50,000 units PO WEEKLY 09/30/18 [ History Confirmed 05/16/19] Fenofibrate Nanocrystallized [Fenofibrate] 48 mg PO HS 09/30/18 [History Confirmed 05/16/19] Folic Acid 1 mg PO BID 09/30/18 [History Confirmed 05/16/19] Gabapentin 800 mg PO QID 09/30/18 [History Confirmed 05/16/19] Lisinopril 10 mg [Zestril 10 MG] 10 mg PO DAILY 09/30/18 [History Confirmed 05/16/19] Metoprolol Tartrate 50 mg [Lopressor 50 MG] 50 mg PO HS 09/30/18 [History Confirmed 05/16/19] Omeprazole 40 mg PO DAILY 09/30/18 [History Confirmed 05/16/19] Oxycodone / APAP 10/325 mg [Oxycodone-Acetaminophen 10-325] 1 tab PO QID 09/30/18 [History Confirmed 05/16/19] Oxycodone HCl [Oxycodone HCl ER] 10 mg PO BID 09/30/18 [History Confirmed ] Sitagliptin Phos/Metformin HCl [Janumet Xr 100-1,000 mg Tablet] 1 tab PO HS [History Confirmed 05/16/19] hydroCHLOROthiazide [Hydrochlorothiazide] 25 mg PO DAILY 09/30/18 [History Confirmed 05/16/19] Allergies/Adverse Reactions: Allergies Allergy/AdvReac Type Severity Reaction Status Date / Time codeine [Codeine] AdvReac Verified 05/16/19 17:45 Iodinated Contrast Media AdvReac Verified 05/16/19 17:45 [IV Dye, Iodine Containing Contrast ] - Past Medical History Past Medical History: Yes Neurological History: No Pertinent History ENT History: Cataracts Cardiac History: Coronary Artery Disease, Hypertension Respiratory History: Sleep Apnea Endocrine Medical History: Diabetes Type II Musculoskelatal History: Arthritis, Fractures GI Medical History: Gallbladder Disease History: No Pertinent History Pyscho-Social History: Depression Male Reproductive Disorders: No Pertinent History Comment: LOW TESTOSTERONE - GOUT,cardiac catherization- has blockages that dont require treatment at this time - Past Surgical History Past Surgical History: Yes Neuro Surgical History: No Pertinent History Cardiac History: Cardiac Catheterization Respiratory Surgery: No Pertinent History GI Surgical History: No Pertinent History, Cholecystectomy Genitourinary Surgical Hx: No Pertinent History Musculskeletal Surgical Hx: Orthopedic Surgery Male Surgical History: No Pertinent History Other Surgical History: left wrist , diabetic neuropathy, small blockages no treatment at this time, teeth removal, left shoulder replacement - Social History Smoking Status: Current every day smoker How long have you smoked: 35 years Exposure to second hand smoke: Yes Alcohol: None Drug Use: none Significant Family History: heart disease, diabetes, hypertension, stroke - Physical Exam Vital Signs: Vital Signs - 24 hr Temp Pulse Resp BP Pulse Ox 05/17/19 07:48 98 F 64 22 128/60 97 05/17/19 04:00 97.3 F 61 24 132/60 92 L 05/17/19 00:00 98.1 F 73 16 122/67 96 05/16/19 20:00 97.7 F 64 20 106/52 92 L 05/16/19 17:11 97.6 F 65 18 117/58 96 05/16/19 16:26 62 18 117/57 99 05/16/19 15:32 57 L 18 148/77 98 05/16/19 14:34 97.8 F 60 18 132/79 98 General Appearance: no apparent distress, alert Neurologic Exam: alert, oriented x 3, cooperative, normal mood/affect, nml cerebellar function, nml station & gait, sensation nml, No motor deficits Eye Exam: PERRL/EOMI, eyes nml inspection Ears, Nose, Throat Exam: normal ENT inspection, TMs normal, pharynx normal, moist mucous membranes Neck Exam: normal inspection, non-tender, supple, full range of motion Respiratory Exam: normal breath sounds, lungs clear, No respiratory distress Cardiovascular Exam: regular rate/rhythm, normal heart sounds, normal peripheral pulses Gastrointestinal/Abdomen Exam: soft, normal bowel sounds, No tenderness, No mass Back Exam: normal inspection, normal range of motion, No CVA tenderness, No vertebral tenderness Extremity Exam: normal inspection, normal range of motion, pelvis stable Skin Exam: normal color, warm, dry, No rash Lymphatic Exam: No adenopathy Results - Labs Lab/Micro Results: Accuchecks Date 05/17/19 Date 05/17/19 Date 05/16/19 Time 11:45 Time 08:09 Time 22:00 Accucheck Value: 150 Accucheck Value: 107 Accucheck Value: 152 Lab Results-Last 24 Hours 05/16/19 05/16/19 05/16/19 Range/Units 13:10 13:10 13:10 WBC (4.0-10.5) K/mm3 RBC (4.1-5.6) M/mm3 Hgb (12.5-18.0) gm/dl Hct (42-50) % MCV (78-100) fl MCH (26-32) pg MCHC (32-36) g/dl RDW (11.5-14.0) % Plt Count (150-450) K/mm3 MPV (7.5-11.0) fl Gran % (36.0-66.0) % Eos # (Auto) (0-0.5) Absolute Lymphs (auto) (1.0-4.6) Absolute Monos (auto) (0.0-1.3) Lymphocytes % (24.0-44.0) % Monocytes % (0.0-12.0) % Eosinophils % (0.00-5.0) % Basophils % (0.0-0.4) % Absolute Granulocytes (1.4-6.9) Basophils # (0-0.4) PT 13.1 H (8.83-12.87) SECONDS INR 1.16 (0.8-3.0) Sodium 140 (137-145) mmol/L Potassium 3.8 (3.5-5.1) mmol/L Chloride 102 (98-107) mmol/L Carbon Dioxide 29 (22-30) mmol/L Anion Gap 12.7 (5-15) MEQ/L BUN 19 (9-20) mg/dL Creatinine 1.15 (0.66-1.25) mg/dL Estimated GFR > 60.0 ML/MIN Glucose 150 H (74-106) mg/dL Hemoglobin A1c (4.5-6.0) % Calcium 9.5 (8.4-10.2) mg/dL Total Bilirubin 0.50 (0.2-1.3) mg/dL AST 43 (17-59) U/L ALT 36 (0-50) U/L Alkaline Phosphatase 75 (38-126) U/L Troponin I 0.036 H* (0.000-0.034) ng/mL NT-Pro-B Natriuret Pep 181 (0-900) pg/mL Serum Total Protein 8.8 H (6.3-8.2) g/dL Albumin 4.3 (3.5-5.0) g/dL TSH 3rd Generation (0.47-4.68) mIU/L Urine Color (YELLOW) Urine Appearance (CLEAR) Urine pH (5-6) Ur Specific [place] (1.005-1.025) Urine Protein (Negative) Urine Ketones (NEGATIVE) Urine Blood (0-5) Steve/ul Urine Nitrite (NEGATIVE) Urine Bilirubin (NEGATIVE) Urine Urobilinogen (0-1) mg/dL Ur Leukocyte Esterase (NEGATIVE) Urine WBC (Auto) (0-5) /HPF Urine RBC (Auto) (0-2) /HPF U Epithel Cells (Auto) (FEW) /HPF Urine Bacteria (Auto) (NEGATIVE) /HPF Urine Culture Reflexed (NO) Urine Glucose (NEGATIVE) mg/dL Urine Opiates Level (NEGATIVE) Ur Methadone (NEGATIVE) Urine Barbiturates (NEGATIVE) Ur Phencyclidine (PCP) (NEGATIVE) Urine Amphetamine (NEGATIVE) U Benzodiazepine Level (NEGATIVE) Urine Cocaine (NEGATIVE) Urine Marijuana (THC) (NEGATIVE) 05/16/19 05/16/19 05/16/19 Range/Units 13:10 13:17 13:19 WBC 9.3 (4.0-10.5) K/mm3 RBC 4.25 (4.1-5.6) M/mm3 Hgb 13.3 (12.5-18.0) gm/dl Hct 40.5 L (42-50) % MCV 95.3 (78-100) fl MCH 31.3 (26-32) pg MCHC 32.8 (32-36) g/dl RDW 13.3 (11.5-14.0) % Plt Count 156 (150-450) K/mm3 MPV 10.0 H (7.5-11.0) fl Gran % 56.7 (36.0-66.0) % Eos # (Auto) 0.30 (0-0.5) Absolute Lymphs (auto) 2.90 (1.0-4.6) Absolute Monos (auto) 0.81 (0.0-1.3) Lymphocytes % 31.0 (24.0-44.0) % Monocytes % 8.7 (0.0-12.0) % Eosinophils % 3.2 (0.00-5.0) % Basophils % 0.4 (0.0-0.4) % Absolute Granulocytes 5.29 (1.4-6.9) Basophils # 0.04 (0-0.4) PT (8.83-12.87) SECONDS INR (0.8-3.0) Sodium (137-145) mmol/L Potassium (3.5-5.1) mmol/L Chloride (98-107) mmol/L Carbon Dioxide (22-30) mmol/L Anion Gap (5-15) MEQ/L BUN (9-20) mg/dL Creatinine (0.66-1.25) mg/dL Estimated GFR ML/MIN Glucose (74-106) mg/dL Hemoglobin A1c (4.5-6.0) % Calcium (8.4-10.2) mg/dL Total Bilirubin (0.2-1.3) mg/dL AST (17-59) U/L ALT (0-50) U/L Alkaline Phosphatase (38-126) U/L Troponin I (0.000-0.034) ng/mL NT-Pro-B Natriuret Pep (0-900) pg/mL Serum Total Protein (6.3-8.2) g/dL Albumin (3.5-5.0) g/dL TSH 3rd Generation 3.320 (0.47-4.68) mIU/L Urine Color YELLOW (YELLOW) Urine Appearance CLEAR (CLEAR) Urine pH 6.0 (5-6) Ur Specific [place] 1.018 (1.005-1.025) Urine Protein NEGATIVE (Negative) Urine Ketones NEGATIVE (NEGATIVE) Urine Blood SMALL (0-5) Steve/ul Urine Nitrite NEGATIVE (NEGATIVE) Urine Bilirubin NEGATIVE (NEGATIVE) Urine Urobilinogen 4 (0-1) mg/dL Ur Leukocyte Esterase NEGATIVE (NEGATIVE) Urine WBC (Auto) 3-5 (0-5) /HPF Urine RBC (Auto) 6-10 (0-2) /HPF U Epithel Cells (Auto) RARE (FEW) /HPF Urine Bacteria (Auto) RARE (NEGATIVE) /HPF Urine Culture Reflexed NO (NO) Urine Glucose NEGATIVE (NEGATIVE) mg/dL Urine Opiates Level (NEGATIVE) Ur Methadone (NEGATIVE) Urine Barbiturates (NEGATIVE) Ur Phencyclidine (PCP) (NEGATIVE) Urine Amphetamine (NEGATIVE) U Benzodiazepine Level (NEGATIVE) Urine Cocaine (NEGATIVE) Urine Marijuana (THC) (NEGATIVE) 05/16/19 05/16/19 05/16/19 Range/Units 16:25 19:15 22:03 WBC (4.0-10.5) K/mm3 RBC (4.1-5.6) M/mm3 Hgb (12.5-18.0) gm/dl Hct (42-50) % MCV (78-100) fl MCH (26-32) pg MCHC (32-36) g/dl RDW (11.5-14.0) % Plt Count (150-450) K/mm3 MPV (7.5-11.0) fl Gran % (36.0-66.0) % Eos # (Auto) (0-0.5) Absolute Lymphs (auto) (1.0-4.6) Absolute Monos (auto) (0.0-1.3) Lymphocytes % (24.0-44.0) % Monocytes % (0.0-12.0) % Eosinophils % (0.00-5.0) % Basophils % (0.0-0.4) % Absolute Granulocytes (1.4-6.9) Basophils # (0-0.4) PT (8.83-12.87) SECONDS INR (0.8-3.0) Sodium (137-145) mmol/L Potassium (3.5-5.1) mmol/L Chloride (98-107) mmol/L Carbon Dioxide (22-30) mmol/L Anion Gap (5-15) MEQ/L BUN (9-20) mg/dL Creatinine (0.66-1.25) mg/dL Estimated GFR ML/MIN Glucose (74-106) mg/dL Hemoglobin A1c (4.5-6.0) % Calcium (8.4-10.2) mg/dL Total Bilirubin (0.2-1.3) mg/dL AST (17-59) U/L ALT (0-50) U/L Alkaline Phosphatase (38-126) U/L Troponin I 0.031 0.042 H* 0.034 (0.000-0.034) ng/mL NT-Pro-B Natriuret Pep (0-900) pg/mL Serum Total Protein (6.3-8.2) g/dL Albumin (3.5-5.0) g/dL TSH 3rd Generation (0.47-4.68) mIU/L Urine Color (YELLOW) Urine Appearance (CLEAR) Urine pH (5-6) Ur Specific [place] (1.005-1.025) Urine Protein (Negative) Urine Ketones (NEGATIVE) Urine Blood (0-5) Steve/ul Urine Nitrite (NEGATIVE) Urine Bilirubin (NEGATIVE) Urine Urobilinogen (0-1) mg/dL Ur Leukocyte Esterase (NEGATIVE) Urine WBC (Auto) (0-5) /HPF Urine RBC (Auto) (0-2) /HPF U Epithel Cells (Auto) (FEW) /HPF Urine Bacteria (Auto) (NEGATIVE) /HPF Urine Culture Reflexed (NO) Urine Glucose (NEGATIVE) mg/dL Urine Opiates Level (NEGATIVE) Ur Methadone (NEGATIVE) Urine Barbiturates (NEGATIVE) Ur Phencyclidine (PCP) (NEGATIVE) Urine Amphetamine (NEGATIVE) U Benzodiazepine Level (NEGATIVE) Urine Cocaine (NEGATIVE) Urine Marijuana (THC) (NEGATIVE) 05/16/19 05/17/19 05/17/19 Range/Units Unknown :20 04:35 WBC 7.4 (4.0-10.5) K/mm3 RBC 4.03 L (4.1-5.6) M/mm3 Hgb 12.6 (12.5-18.0) gm/dl Hct 39.1 L (42-50) % MCV 97.0 (78-100) fl MCH 31.3 (26-32) pg MCHC 32.2 (32-36) g/dl RDW 13.3 (11.5-14.0) % Plt Count 139 L (150-450) K/mm3 MPV 10.5 (7.5-11.0) fl Gran % 45.4 (36.0-66.0) % Eos # (Auto) 0.25 (0-0.5) Absolute Lymphs (auto) 3.18 (1.0-4.6) Absolute Monos (auto) 0.58 (0.0-1.3) Lymphocytes % 42.9 (24.0-44.0) % Monocytes % 7.8 (0.0-12.0) % Eosinophils % 3.4 (0.00-5.0) % Basophils % 0.5 (0.0-0.4) % Absolute Granulocytes 3.36 (1.4-6.9) Basophils # 0.04 (0-0.4) PT (8.83-12.87) SECONDS INR (0.8-3.0) Sodium (137-145) mmol/L Potassium (3.5-5.1) mmol/L Chloride (98-107) mmol/L Carbon Dioxide (22-30) mmol/L Anion Gap (5-15) MEQ/L BUN (9-20) mg/dL Creatinine (0.66-1.25) mg/dL Estimated GFR ML/MIN Glucose (74-106) mg/dL Hemoglobin A1c (4.5-6.0) % Calcium (8.4-10.2) mg/dL Total Bilirubin (0.2-1.3) mg/dL AST (17-59) U/L ALT (0-50) U/L Alkaline Phosphatase (38-126) U/L Troponin I 0.035 H (0.000-0.034) ng/mL NT-Pro-B Natriuret Pep (0-900) pg/mL Serum Total Protein (6.3-8.2) g/dL Albumin (3.5-5.0) g/dL TSH 3rd Generation (0.47-4.68) mIU/L Urine Color (YELLOW) Urine Appearance (CLEAR) Urine pH (5-6) Ur Specific [place] (1.005-1.025) Urine Protein (Negative) Urine Ketones (NEGATIVE) Urine Blood (0-5) Steve/ul Urine Nitrite (NEGATIVE) Urine Bilirubin (NEGATIVE) Urine Urobilinogen (0-1) mg/dL Ur Leukocyte Esterase (NEGATIVE) Urine WBC (Auto) (0-5) /HPF Urine RBC (Auto) (0-2) /HPF U Epithel Cells (Auto) (FEW) /HPF Urine Bacteria (Auto) (NEGATIVE) /HPF Urine Culture Reflexed (NO) Urine Glucose (NEGATIVE) mg/dL Urine Opiates Level NEGATIVE (NEGATIVE) Ur Methadone NEGATIVE (NEGATIVE) Urine Barbiturates NEGATIVE (NEGATIVE) Ur Phencyclidine (PCP) NEGATIVE (NEGATIVE) Urine Amphetamine NEGATIVE (NEGATIVE) U Benzodiazepine Level NEGATIVE (NEGATIVE) Urine Cocaine NEGATIVE (NEGATIVE) Urine Marijuana (THC) NEGATIVE (NEGATIVE) 05/17/19 05/17/19 05/17/19 Range/Units 04:35 04:35 09:30 WBC (4.0-10.5) K/mm3 RBC (4.1-5.6) M/mm3 Hgb (12.5-18.0) gm/dl Hct (42-50) % MCV (78-100) fl MCH (26-32) pg MCHC (32-36) g/dl RDW (11.5-14.0) % Plt Count (150-450) K/mm3 MPV (7.5-11.0) fl Gran % (36.0-66.0) % Eos # (Auto) (0-0.5) Absolute Lymphs (auto) (1.0-4.6) Absolute Monos (auto) (0.0-1.3) Lymphocytes % (24.0-44.0) % Monocytes % (0.0-12.0) % Eosinophils % (0.00-5.0) % Basophils % (0.0-0.4) % Absolute Granulocytes (1.4-6.9) Basophils # (0-0.4) PT (8.83-12.87) SECONDS INR (0.8-3.0) Sodium 140 (137-145) mmol/L Potassium 4.0 (3.5-5.1) mmol/L Chloride 104 (98-107) mmol/L Carbon Dioxide 29 (22-30) mmol/L Anion Gap 11.3 (5-15) MEQ/L BUN 17 (9-20) mg/dL Creatinine 1.16 (0.66-1.25) mg/dL Estimated GFR > 60.0 ML/MIN Glucose 107 H (74-106) mg/dL Hemoglobin A1c 5.71 (4.5-6.0) % Calcium 9.2 (8.4-10.2) mg/dL Total Bilirubin 0.50 (0.2-1.3) mg/dL AST 47 (17-59) U/L ALT 36 (0-50) U/L Alkaline Phosphatase 71 (38-126) U/L Troponin I 0.039 H* (0.000-0.034) ng/mL NT-Pro-B Natriuret Pep 165 (0-900) pg/mL Serum Total Protein 8.0 (6.3-8.2) g/dL Albumin 3.9 (3.5-5.0) g/dL TSH 3rd Generation (0.47-4.68) mIU/L Urine Color (YELLOW) Urine Appearance (CLEAR) Urine pH (5-6) Ur Specific [place] (1.005-1.025) Urine Protein (Negative) Urine Ketones (NEGATIVE) Urine Blood (0-5) Steve/ul Urine Nitrite (NEGATIVE) Urine Bilirubin (NEGATIVE) Urine Urobilinogen (0-1) mg/dL Ur Leukocyte Esterase (NEGATIVE) Urine WBC (Auto) (0-5) /HPF Urine RBC (Auto) (0-2) /HPF U Epithel Cells (Auto) (FEW) /HPF Urine Bacteria (Auto) (NEGATIVE) /HPF Urine Culture Reflexed (NO) Urine Glucose (NEGATIVE) mg/dL Urine Opiates Level (NEGATIVE) Ur Methadone (NEGATIVE) Urine Barbiturates (NEGATIVE) Ur Phencyclidine (PCP) (NEGATIVE) Urine Amphetamine (NEGATIVE) U Benzodiazepine Level (NEGATIVE) Urine Cocaine (NEGATIVE) Urine Marijuana (THC) (NEGATIVE) Accuchecks Date 05/17/19 Date 05/17/19 Date 05/16/19 Time 11:45 Time 08:09 Time 22:00 Accucheck Value: 150 Accucheck Value: 107 Accucheck Value: 152 - Radiology Impressions Radiology Exams & Impressions: Radiology Procedures Category Date Time Status HEAD WITHOUT CONTRAST [CT] Stat Exams 05/16/19 13:11 Completed Assessment/Plan (1) Syncope and collapse Current Visit: Yes Status: Acute Code(s): R55 - SYNCOPE AND COLLAPSE (2) Cardiac enzymes elevated Current Visit: Yes Status: Acute Code(s): R74.8 - ABNORMAL LEVELS OF OTHER SERUM ENZYMES (3) Chest pain Current Visit: Yes Status: Acute Code(s): R07.9 - CHEST PAIN, UNSPECIFIED (4) Chest pain, rule out acute myocardial infarction Current Visit: No Status: Acute Code(s): R07.9 - CHEST PAIN, UNSPECIFIED (5) HTN (hypertension) Current Visit: No Status: Chronic Code(s): I10 - ESSENTIAL (PRIMARY) HYPERTENSION (6) Obesity, Class II, BMI 35.0-39.9, with comorbidity (see actual BMI) Current Visit: No Status: Chronic Code(s): E66.01 - MORBID (SEVERE) OBESITY DUE TO EXCESS CALORIES Hospital Summary - Hospital Course Hospital Course: Chief Complaint Diagnosis chest pain elivated troponins Allergies Allergy/AdvReac Type Severity Reaction Status Date / Time codeine [Codeine] AdvReac Verified 05/16/19 17:45 Iodinated Contrast Media AdvReac Verified 05/16/19 17:45 [IV Dye, Iodine Containing Contrast ] Vital Signs (Last 24 hours) Temp Pulse Resp BP Pulse Ox 05/17/19 07:48 98 F 64 22 128/60 97 05/17/19 04:00 97.3 F 61 24 132/60 92 L 05/17/19 00:00 98.1 F 73 16 122/67 96 05/16/19 20:00 97.7 F 64 20 106/52 92 L 05/16/19 17:11 97.6 F 65 18 117/58 96 05/16/19 16:26 62 18 117/57 99 05/16/19 15:32 57 L 18 148/77 98 05/16/19 14:34 97.8 F 60 18 132/79 98 Current Medications Generic Name Dose Route Start Last Admin Trade Name Freq PRN Reason Stop Dose Admin Acetaminophen 650 mg 05/16/19 16:54 Tylenol 325 Mg PO 06/15/19 16:53 Q4H PRN PRN PAIN, FEVER, HEADACHE Allopurinol 300 mg 05/16/19 22:00 05/16/19 21:30 Zyloprim 300 Mg PO 06/15/19 21:59 300 mg HS BEENA Administration Cyclobenzaprine HCl 10 mg 05/16/19 22:00 05/17/19 09:07 Cyclobenzaprine 10 Mg PO 06/15/19 21:59 10 mg BID BEENA Administration Ergocalciferol 50,000 unit 05/23/19 10:00 Vitamin D2 PO 06/22/19 09:59 WEEKLY BEENA Fenofibrate 72.5 mg 05/17/19 22:00 Tricor 145 Mg PO 06/16/19 21:59 HS BEENA Folic Acid 1 mg 05/16/19 22:00 05/17/19 09:05 Folate 1 Mg PO 06/15/19 21:59 1 mg BID BEENA Administration Gabapentin 800 mg 05/17/19 10:00 05/17/19 09:05 Neurontin 400 Mg PO 06/16/19 09:59 800 mg QID BEENA Administration Hydrochlorothiazide 25 mg 05/17/19 10:00 05/17/19 09:07 Hydrodiuril 25 Mg PO 06/16/19 09:59 25 mg DAILY BEENA Administration Sodium Chloride 1,000 mls @ 50 mls/hr 05/16/19 16:54 05/16/19 17:06 Sodium Chloride 0.9% 1000 Ml IV 06/15/19 16:53 50 mls/hr .Q20H BEENA Administration Lisinopril 10 mg 05/17/19 10:00 05/17/19 09:05 Zestril 10 Mg PO 06/16/19 09:59 10 mg DAILY BEENA Administration Metformin HCl 1,000 mg 05/17/19 22:00 Glucophage Xr 500 Mg PO 06/16/19 21:59 HS BEENA Metoprolol Tartrate 50 mg 05/16/19 22:00 05/16/19 22:22 Lopressor 50 Mg PO 06/15/19 21:59 Not Given HS BEENA Ondansetron HCl 4 mg 05/16/19 16:54 Zofran 4 Mg/2 Ml Vial IV 06/15/19 16:53 Q6H PRN PRN NAUSEA/VOMITING Oxycodone HCl 10 mg 05/16/19 22:00 05/17/19 09:05 Oxycontin 10 Mg Er PO 05/21/19 21:59 10 mg BID BEENA Administration Oxycodone/Acetaminophen 1 tab 05/16/19 22:00 05/17/19 09:06 Oxycodone-Acetaminophen 10-325 PO 05/21/19 21:59 1 tab QID BEENA Administration Pantoprazole Sodium 40 mg 05/17/19 10:00 05/17/19 09:07 Protonix 40mg Tablet PO 06/16/19 09:59 40 mg DAILY BEENA Administration Simvastatin 10 mg 05/17/19 10:00 05/17/19 09:07 Zocor 10mg PO 06/16/19 09:59 10 mg DAILY BEENA Administration Sitagliptin Phosphate 100 mg 05/17/19 22:00 Januvia 50 Mg PO 06/16/19 21:59 HS BEENA Discontinued Medications Generic Name Dose Route Start Last Admin Trade Name Freq PRN Reason Stop Dose Admin Gabapentin 400 mg 05/16/19 22:00 05/16/19 21:31 Neurontin 400 Mg PO 06/15/19 21:59 400 mg QID BEENA Administration Sodium Chloride 1,000 mls @ 100 mls/hr 05/16/19 13:15 05/16/19 13:38 Sodium Chloride 0.9% 1000 Ml IV 06/15/19 13:14 100 mls/hr .Q10H BEENA Administration Sodium Chloride Confirm 05/16/19 13:24 Sodium Chloride 0.9% 1000 Ml Administered 05/16/19 13:25 Dose 1,000 mls @ ud .ROUTE .STK-MED ONE Intake & Output (Last 24 hours) 05/15/19 05/16/19 05/17/19 05/18/19 11:59 11:59 11:59 11:59 Intake Total 1515 Output Total 550 Balance 965 Weight 163 kg Laboratory Results (Last 24 hours) 05/17/19 05/17/19 05/17/19 09:30 04:35 04:35 WBC RBC Hgb Hct MCV MCH MCHC RDW Plt Count MPV Gran % Eos # (Auto) Absolute Lymphs (auto) Absolute Monos (auto) Lymphocytes % Monocytes % Eosinophils % Basophils % Absolute Granulocytes Basophils # PT INR Sodium 140 Potassium 4.0 Chloride 104 Carbon Dioxide 29 Anion Gap 11.3 BUN 17 Creatinine 1.16 Estimated GFR > 60.0 Glucose 107 H Hemoglobin A1c 5.71 Calcium 9.2 Total Bilirubin 0.50 AST 47 ALT 36 Alkaline Phosphatase 71 Troponin I 0.039 H* NT-Pro-B Natriuret Pep 165 Serum Total Protein 8.0 Albumin 3.9 TSH 3rd Generation Urine Color Urine Appearance Urine pH Ur Specific [place] Urine Protein Urine Ketones Urine Blood Urine Nitrite Urine Bilirubin Urine Urobilinogen Ur Leukocyte Esterase Urine WBC (Auto) Urine RBC (Auto) U Epithel Cells (Auto) Urine Bacteria (Auto) Urine Culture Reflexed Urine Glucose Urine Opiates Level Ur Methadone Urine Barbiturates Ur Phencyclidine (PCP) Urine Amphetamine U Benzodiazepine Level Urine Cocaine Urine Marijuana (THC) 05/17/19 05/17/19 05/16/19 04:35 01:20 Unknown WBC 7.4 RBC 4.03 L Hgb 12.6 Hct 39.1 L MCV 97.0 MCH 31.3 MCHC 32.2 RDW 13.3 Plt Count 139 L MPV 10.5 Gran % 45.4 Eos # (Auto) 0.25 Absolute Lymphs (auto) 3.18 Absolute Monos (auto) 0.58 Lymphocytes % 42.9 Monocytes % 7.8 Eosinophils % 3.4 Basophils % 0.5 Absolute Granulocytes 3.36 Basophils # 0.04 PT INR Sodium Potassium Chloride Carbon Dioxide Anion Gap BUN Creatinine Estimated GFR Glucose Hemoglobin A1c Calcium Total Bilirubin AST ALT Alkaline Phosphatase Troponin I 0.035 H NT-Pro-B Natriuret Pep Serum Total Protein Albumin TSH 3rd Generation Urine Color Urine Appearance Urine pH Ur Specific [place] Urine Protein Urine Ketones Urine Blood Urine Nitrite Urine Bilirubin Urine Urobilinogen Ur Leukocyte Esterase Urine WBC (Auto) Urine RBC (Auto) U Epithel Cells (Auto) Urine Bacteria (Auto) Urine Culture Reflexed Urine Glucose Urine Opiates Level NEGATIVE Ur Methadone NEGATIVE Urine Barbiturates NEGATIVE Ur Phencyclidine (PCP) NEGATIVE Urine Amphetamine NEGATIVE U Benzodiazepine Level NEGATIVE Urine Cocaine NEGATIVE Urine Marijuana (THC) NEGATIVE 05/16/19 05/16/19 05/16/19 22:03 19:15 16:25 WBC RBC Hgb Hct MCV MCH MCHC RDW Plt Count MPV Gran % Eos # (Auto) Absolute Lymphs (auto) Absolute Monos (auto) Lymphocytes % Monocytes % Eosinophils % Basophils % Absolute Granulocytes Basophils # PT INR Sodium Potassium Chloride Carbon Dioxide Anion Gap BUN Creatinine Estimated GFR Glucose Hemoglobin A1c Calcium Total Bilirubin AST ALT Alkaline Phosphatase Troponin I 0.034 0.042 H* 0.031 NT-Pro-B Natriuret Pep Serum Total Protein Albumin TSH 3rd Generation Urine Color Urine Appearance Urine pH Ur Specific [place] Urine Protein Urine Ketones Urine Blood Urine Nitrite Urine Bilirubin Urine Urobilinogen Ur Leukocyte Esterase Urine WBC (Auto) Urine RBC (Auto) U Epithel Cells (Auto) Urine Bacteria (Auto) Urine Culture Reflexed Urine Glucose Urine Opiates Level Ur Methadone Urine Barbiturates Ur Phencyclidine (PCP) Urine Amphetamine U Benzodiazepine Level Urine Cocaine Urine Marijuana (THC) 05/16/19 05/16/19 05/16/19 13:19 13:17 13:10 WBC 9.3 RBC 4.25 Hgb 13.3 Hct 40.5 L MCV 95.3 MCH 31.3 MCHC 32.8 RDW 13.3 Plt Count 156 MPV 10.0 H Gran % 56.7 Eos # (Auto) 0.30 Absolute Lymphs (auto) 2.90 Absolute Monos (auto) 0.81 Lymphocytes % 31.0 Monocytes % 8.7 Eosinophils % 3.2 Basophils % 0.4 Absolute Granulocytes 5.29 Basophils # 0.04 PT INR Sodium Potassium Chloride Carbon Dioxide Anion Gap BUN Creatinine Estimated GFR Glucose Hemoglobin A1c Calcium Total Bilirubin AST ALT Alkaline Phosphatase Troponin I NT-Pro-B Natriuret Pep Serum Total Protein Albumin TSH 3rd Generation 3.320 Urine Color YELLOW Urine Appearance CLEAR Urine pH 6.0 Ur Specific [place] 1.018 Urine Protein NEGATIVE Urine Ketones NEGATIVE Urine Blood SMALL Urine Nitrite NEGATIVE Urine Bilirubin NEGATIVE Urine Urobilinogen 4 Ur Leukocyte Esterase NEGATIVE Urine WBC (Auto) 3-5 Urine RBC (Auto) 6-10 U Epithel Cells (Auto) RARE Urine Bacteria (Auto) RARE Urine Culture Reflexed NO Urine Glucose NEGATIVE Urine Opiates Level Ur Methadone Urine Barbiturates Ur Phencyclidine (PCP) Urine Amphetamine U Benzodiazepine Level Urine Cocaine Urine Marijuana (THC) 05/16/19 05/16/19 05/16/19 13:10 13:10 13:10 WBC RBC Hgb Hct MCV MCH MCHC RDW Plt Count MPV Gran % Eos # (Auto) Absolute Lymphs (auto) Absolute Monos (auto) Lymphocytes % Monocytes % Eosinophils % Basophils % Absolute Granulocytes Basophils # PT 13.1 H INR 1.16 Sodium 140 Potassium 3.8 Chloride 102 Carbon Dioxide 29 Anion Gap 12.7 BUN 19 Creatinine 1.15 Estimated GFR > 60.0 Glucose 150 H Hemoglobin A1c Calcium 9.5 Total Bilirubin 0.50 AST 43 ALT 36 Alkaline Phosphatase 75 Troponin I 0.036 H* NT-Pro-B Natriuret Pep 181 Serum Total Protein 8.8 H Albumin 4.3 TSH 3rd Generation Urine Color Urine Appearance Urine pH Ur Specific [place] Urine Protein Urine Ketones Urine Blood Urine Nitrite Urine Bilirubin Urine Urobilinogen Ur Leukocyte Esterase Urine WBC (Auto) Urine RBC (Auto) U Epithel Cells (Auto) Urine Bacteria (Auto) Urine Culture Reflexed Urine Glucose Urine Opiates Level Ur Methadone Urine Barbiturates Ur Phencyclidine (PCP) Urine Amphetamine U Benzodiazepine Level Urine Cocaine Urine Marijuana (THC) Orders (Last 24 hours) Category Date Time Status Up With Assistance TOLERATED Activity 05/16/19 16:54 Active ACCUCHECK [Accucheck] ACHS Care 05/16/19 21:00 Active Admit as Inpatient ROUTINE Care 05/16/19 16:54 Active Carpet Finishing Supervisor STAT Care 05/16/19 13:11 Completed Clean Catch Urine Specimen STAT Care 05/16/19 13:16 Completed EKG-ER Only STAT Care 05/16/19 13:10 Completed IV Insertion STAT Care 05/16/19 13:10 Completed Miscellaneous Nursing Order ROUTINE Care 05/16/19 18:51 Active Pulse Oximetry (ED) STAT Care 05/16/19 13:10 Completed Telemetry PROTOCOL Care 05/16/19 16:54 Active Consult Cardiology ROUTINE Cons 05/17/19 09:18 Active 2000 Calorie ADA Diet 05/16/19 Dinner Active Discharge Routine Discharge 05/17/19 12:15 Ordered Discharge/Telephone Order Routine Discharge 05/17/19 12:15 Active HEAD WITHOUT CONTRAST [CT] Stat Exams 05/16/19 13:11 Completed CBC W DIFF AM.LAB Lab 05/17/19 04:35 Completed CBC W DIFF Stat Lab 05/16/19 13:17 Completed CMP AM.LAB Lab 05/17/19 04:35 Completed CMP Stat Lab 05/16/19 13:10 Completed HEMOGLOBIN A1C Urgent Lab 05/17/19 04:35 Completed NT PRO BNP AM.LAB Lab 05/17/19 04:35 Completed NT PRO BNP Stat Lab 05/16/19 13:10 Completed PROTIME WITH INR Stat Lab 05/16/19 13:10 Completed TROPONIN Q3H Lab 05/16/19 13:10 Completed TROPONIN Q3H Lab 05/16/19 16:25 Completed TROPONIN Q3H Lab 05/16/19 19:15 Completed TROPONIN Q3H Lab 05/16/19 22:03 Completed TROPONIN Q3H Lab 05/17/19 01:20 Completed TROPONIN Stat Lab 05/17/19 09:30 Completed TSH [TSH, 3RD Generation] Stat Lab 05/16/19 13:10 Completed UA W/RFX UR CULTURE Stat Lab 05/16/19 13:19 Completed Acetaminophen 325 mg [Tylenol 325 mg] Med 05/16/19 16:54 Active 650 mg PO Q4H PRN PRN Allopurinol 300 mg [Zyloprim 300 mg] Med 05/16/19 22:00 Active 300 mg PO HS Cyclobenzaprine HCl 10 mg [Cyclobenzaprine 10 MG] Med 05/16/19 22:00 Active 10 mg PO BID Ergocalciferol (Vitamin D2) [Vitamin D2] Med 05/23/19 10:00 Active 50,000 unit PO WEEKLY Fenofibrate,Micronized 145 mg* [Tricor 145 MG] Med 05/17/19 22:00 Active 72.5 mg PO HS Flu Vacc [id number](6Mos Up)/Pf [Fluzone Quad Med 05/17/19 10:00 Discontinued Syringe] 60 mcg IM .ONCE ONE Folic Acid 1 mg [Folate 1 mg] Med 05/16/19 22:00 Active 1 mg PO BID Gabapentin 400 mg [Neurontin 400 MG] Med 05/16/19 22:00 Discontinued 400 mg PO QID Gabapentin 400 mg [Neurontin 400 MG] Med 05/17/19 10:00 Active 800 mg PO QID Hydrochlorothiazide 25 mg [hydroDIURIL 25 MG] Med 05/17/19 10:00 Active 25 mg PO DAILY Lisinopril 10 mg [Zestril 10 MG] Med 05/17/19 10:00 Active 10 mg PO DAILY Metformin HCl Xr 500 mg [Glucophage XR 500 MG] Med 05/17/19 22:00 Active 1,000 mg PO HS Metoprolol Tartrate 50 mg [Lopressor 50 MG] Med 05/16/19 22:00 Active 50 mg PO HS NaCl 0.9% 1000 ml [Sodium Chloride 0.9% 1000 ML] 1,000 Med 05/16/19 13:24 Discontinued ml .ROUTE UD NaCl 0.9% 1000 ml [Sodium Chloride 0.9% 1000 ML] 1,000 Med 05/16/19 13:15 Discontinued ml IV 100 mls/hr NaCl 0.9% 1000 ml [Sodium Chloride 0.9% 1000 ML] 1,000 Med 05/16/19 16:54 Active ml IV 50 mls/hr Ondansetron HCl 4 mg/2 ml [Zofran 4 MG/2 ML VIAL] Med 05/16/19 16:54 Active 4 mg IV Q6H PRN PRN Oxycodone / APAP 10/325 mg [Oxycodone-Acetaminophen Med 05/16/19 22:00 Active 10-325] 1 tab PO QID Oxycodone HCl Cr 10 mg [Oxycontin 10 MG ER] Med 05/16/19 22:00 Active 10 mg PO BID PANTOPRAZOLE 40 mg Tablet [Protonix 40MG Tablet] Med 05/17/19 10:00 Active 40 mg PO DAILY Simvastatin 10 mg [Zocor 10MG] Med 05/17/19 10:00 Active 10 mg PO DAILY Sitagliptin Phosphate 50 MG [Januvia 50 MG] Med 05/17/19 22:00 Active 100 mg PO HS EKG REPEAT IN AM RT 05/16/19 16:54 Completed EKG ROUTINE RT 05/17/19 05:00 Completed Pulse Oximetry ROUTINE RT 05/16/19 16:54 Active Smoking Cessation Education ONCE RT 05/16/19 17:28 Completed Patient Care Notes (Last 24 hours) 05/17/19 12:00 (created 05/17/19 12:53) Case Management Note by Idania Robison DR. ROUNDED AND EVALUATED, DISCUSSED DX ANGINA WITH PATIENT AND . DISCUSSED F/U WITH DR. SUN ON DISCHARGE OUTPATIENT. PLAN FOR DC HOME TODAY, ON SAME HOME MEDS. PT/ VERBALIZED UNDERSTANDING, AND ALL QUESTIONS ANSWERED BY DR. SMITH. DENIES ADDNL NEEDS FOR DISCHARGE. Initialized on 05/17/19 12:53 - END OF NOTE 05/17/19 10:15 Nursing Note by Traci Vuong spoke with dr. sun and updated on pt's labs and situation. dr. sun will see pt in office. Initialized on 05/17/19 10:15 - END OF NOTE 05/16/19 20:49 Nursing Note by Adrianna Phillips Family came in to visit pt and had 4 children under the age of 16. At 2019 I informed them of the visitor restrictions to the flu epidemic and advised that someone would need to take the children home for their protection from flu and rsv. At 2034 the family and children left the pt's room Initialized on 05/16/19 20:49 - END OF NOTE - Vitals & Intake/Output Vital Signs: Vital Signs Temperature 98 F 05/17/19 07:48 Pulse Rate 64 05/17/19 07:48 Respiratory Rate 22 05/17/19 07:48 Blood Pressure 128/60 05/17/19 07:48 O2 Sat by Pulse Oximetry 97 05/17/19 07:48 Intake & Output: Intake & Output 05/15/19 05/16/19 05/17/19 05/18/19 11:59 11:59 11:59 11:59 Intake Total 1515 Output Total 550 Balance 965 Weight 163 kg - Lab Result Diagrams: 05/17/19 04:35 05/17/19 04:35 Lab Results-Last 24 Hrs: Accuchecks Date 05/17/19 Date 05/17/19 Date 05/16/19 Time 11:45 Time 08:09 Time 22:00 Accucheck Value: 150 Accucheck Value: 107 Accucheck Value: 152 Lab Results-Last 24 Hours 05/16/19 05/16/19 05/16/19 Range/Units 13:10 13:10 13:10 WBC (4.0-10.5) K/mm3 RBC (4.1-5.6) M/mm3 Hgb (12.5-18.0) gm/dl Hct (42-50) % MCV (78-100) fl MCH (26-32) pg MCHC (32-36) g/dl RDW (11.5-14.0) % Plt Count (150-450) K/mm3 MPV (7.5-11.0) fl Gran % (36.0-66.0) % Eos # (Auto) (0-0.5) Absolute Lymphs (auto) (1.0-4.6) Absolute Monos (auto) (0.0-1.3) Lymphocytes % (24.0-44.0) % Monocytes % (0.0-12.0) % Eosinophils % (0.00-5.0) % Basophils % (0.0-0.4) % Absolute Granulocytes (1.4-6.9) Basophils # (0-0.4) PT 13.1 H (8.83-12.87) SECONDS INR 1.16 (0.8-3.0) Sodium 140 (137-145) mmol/L Potassium 3.8 (3.5-5.1) mmol/L Chloride 102 (98-107) mmol/L Carbon Dioxide 29 (22-30) mmol/L Anion Gap 12.7 (5-15) MEQ/L BUN 19 (9-20) mg/dL Creatinine 1.15 (0.66-1.25) mg/dL Estimated GFR > 60.0 ML/MIN Glucose 150 H (74-106) mg/dL Hemoglobin A1c (4.5-6.0) % Calcium 9.5 (8.4-10.2) mg/dL Total Bilirubin 0.50 (0.2-1.3) mg/dL AST 43 (17-59) U/L ALT 36 (0-50) U/L Alkaline Phosphatase 75 (38-126) U/L Troponin I 0.036 H* (0.000-0.034) ng/mL NT-Pro-B Natriuret Pep 181 (0-900) pg/mL Serum Total Protein 8.8 H (6.3-8.2) g/dL Albumin 4.3 (3.5-5.0) g/dL TSH 3rd Generation (0.47-4.68) mIU/L Urine Color (YELLOW) Urine Appearance (CLEAR) Urine pH (5-6) Ur Specific [place] (1.005-1.025) Urine Protein (Negative) Urine Ketones (NEGATIVE) Urine Blood (0-5) Steve/ul Urine Nitrite (NEGATIVE) Urine Bilirubin (NEGATIVE) Urine Urobilinogen (0-1) mg/dL Ur Leukocyte Esterase (NEGATIVE) Urine WBC (Auto) (0-5) /HPF Urine RBC (Auto) (0-2) /HPF U Epithel Cells (Auto) (FEW) /HPF Urine Bacteria (Auto) (NEGATIVE) /HPF Urine Culture Reflexed (NO) Urine Glucose (NEGATIVE) mg/dL Urine Opiates Level (NEGATIVE) Ur Methadone (NEGATIVE) Urine Barbiturates (NEGATIVE) Ur Phencyclidine (PCP) (NEGATIVE) Urine Amphetamine (NEGATIVE) U Benzodiazepine Level (NEGATIVE) Urine Cocaine (NEGATIVE) Urine Marijuana (THC) (NEGATIVE) 05/16/19 05/16/19 05/16/19 Range/Units 13:10 13:17 13:19 WBC 9.3 (4.0-10.5) K/mm3 RBC 4.25 (4.1-5.6) M/mm3 Hgb 13.3 (12.5-18.0) gm/dl Hct 40.5 L (42-50) % MCV 95.3 (78-100) fl MCH 31.3 (26-32) pg MCHC 32.8 (32-36) g/dl RDW 13.3 (11.5-14.0) % Plt Count 156 (150-450) K/mm3 MPV 10.0 H (7.5-11.0) fl Gran % 56.7 (36.0-66.0) % Eos # (Auto) 0.30 (0-0.5) Absolute Lymphs (auto) 2.90 (1.0-4.6) Absolute Monos (auto) 0.81 (0.0-1.3) Lymphocytes % 31.0 (24.0-44.0) % Monocytes % 8.7 (0.0-12.0) % Eosinophils % 3.2 (0.00-5.0) % Basophils % 0.4 (0.0-0.4) % Absolute Granulocytes 5.29 (1.4-6.9) Basophils # 0.04 (0-0.4) PT (8.83-12.87) SECONDS INR (0.8-3.0) Sodium (137-145) mmol/L Potassium (3.5-5.1) mmol/L Chloride (98-107) mmol/L Carbon Dioxide (22-30) mmol/L Anion Gap (5-15) MEQ/L BUN (9-20) mg/dL Creatinine (0.66-1.25) mg/dL Estimated GFR ML/MIN Glucose (74-106) mg/dL Hemoglobin A1c (4.5-6.0) % Calcium (8.4-10.2) mg/dL Total Bilirubin (0.2-1.3) mg/dL AST (17-59) U/L ALT (0-50) U/L Alkaline Phosphatase (38-126) U/L Troponin I (0.000-0.034) ng/mL NT-Pro-B Natriuret Pep (0-900) pg/mL Serum Total Protein (6.3-8.2) g/dL Albumin (3.5-5.0) g/dL TSH 3rd Generation 3.320 (0.47-4.68) mIU/L Urine Color YELLOW (YELLOW) Urine Appearance CLEAR (CLEAR) Urine pH 6.0 (5-6) Ur Specific [place] 1.018 (1.005-1.025) Urine Protein NEGATIVE (Negative) Urine Ketones NEGATIVE (NEGATIVE) Urine Blood SMALL (0-5) Steve/ul Urine Nitrite NEGATIVE (NEGATIVE) Urine Bilirubin NEGATIVE (NEGATIVE) Urine Urobilinogen 4 (0-1) mg/dL Ur Leukocyte Esterase NEGATIVE (NEGATIVE) Urine WBC (Auto) 3-5 (0-5) /HPF Urine RBC (Auto) 6-10 (0-2) /HPF U Epithel Cells (Auto) RARE (FEW) /HPF Urine Bacteria (Auto) RARE (NEGATIVE) /HPF Urine Culture Reflexed NO (NO) Urine Glucose NEGATIVE (NEGATIVE) mg/dL Urine Opiates Level (NEGATIVE) Ur Methadone (NEGATIVE) Urine Barbiturates (NEGATIVE) Ur Phencyclidine (PCP) (NEGATIVE) Urine Amphetamine (NEGATIVE) U Benzodiazepine Level (NEGATIVE) Urine Cocaine (NEGATIVE) Urine Marijuana (THC) (NEGATIVE) 05/16/19 05/16/19 05/16/19 Range/Units 16:25 19:15 22:03 WBC (4.0-10.5) K/mm3 RBC (4.1-5.6) M/mm3 Hgb (12.5-18.0) gm/dl Hct (42-50) % MCV (78-100) fl MCH (26-32) pg MCHC (32-36) g/dl RDW (11.5-14.0) % Plt Count (150-450) K/mm3 MPV (7.5-11.0) fl Gran % (36.0-66.0) % Eos # (Auto) (0-0.5) Absolute Lymphs (auto) (1.0-4.6) Absolute Monos (auto) (0.0-1.3) Lymphocytes % (24.0-44.0) % Monocytes % (0.0-12.0) % Eosinophils % (0.00-5.0) % Basophils % (0.0-0.4) % Absolute Granulocytes (1.4-6.9) Basophils # (0-0.4) PT (8.83-12.87) SECONDS INR (0.8-3.0) Sodium (137-145) mmol/L Potassium (3.5-5.1) mmol/L Chloride (98-107) mmol/L Carbon Dioxide (22-30) mmol/L Anion Gap (5-15) MEQ/L BUN (9-20) mg/dL Creatinine (0.66-1.25) mg/dL Estimated GFR ML/MIN Glucose (74-106) mg/dL Hemoglobin A1c (4.5-6.0) % Calcium (8.4-10.2) mg/dL Total Bilirubin (0.2-1.3) mg/dL AST (17-59) U/L ALT (0-50) U/L Alkaline Phosphatase (38-126) U/L Troponin I 0.031 0.042 H* 0.034 (0.000-0.034) ng/mL NT-Pro-B Natriuret Pep (0-900) pg/mL Serum Total Protein (6.3-8.2) g/dL Albumin (3.5-5.0) g/dL TSH 3rd Generation (0.47-4.68) mIU/L Urine Color (YELLOW) Urine Appearance (CLEAR) Urine pH (5-6) Ur Specific [place] (1.005-1.025) Urine Protein (Negative) Urine Ketones (NEGATIVE) Urine Blood (0-5) Steve/ul Urine Nitrite (NEGATIVE) Urine Bilirubin (NEGATIVE) Urine Urobilinogen (0-1) mg/dL Ur Leukocyte Esterase (NEGATIVE) Urine WBC (Auto) (0-5) /HPF Urine RBC (Auto) (0-2) /HPF U Epithel Cells (Auto) (FEW) /HPF Urine Bacteria (Auto) (NEGATIVE) /HPF Urine Culture Reflexed (NO) Urine Glucose (NEGATIVE) mg/dL Urine Opiates Level (NEGATIVE) Ur Methadone (NEGATIVE) Urine Barbiturates (NEGATIVE) Ur Phencyclidine (PCP) (NEGATIVE) Urine Amphetamine (NEGATIVE) U Benzodiazepine Level (NEGATIVE) Urine Cocaine (NEGATIVE) Urine Marijuana (THC) (NEGATIVE) 05/16/19 05/17/19 05/17/19 Range/Units Unknown :20 04:35 WBC 7.4 (4.0-10.5) K/mm3 RBC 4.03 L (4.1-5.6) M/mm3 Hgb 12.6 (12.5-18.0) gm/dl Hct 39.1 L (42-50) % MCV 97.0 (78-100) fl MCH 31.3 (26-32) pg MCHC 32.2 (32-36) g/dl RDW 13.3 (11.5-14.0) % Plt Count 139 L (150-450) K/mm3 MPV 10.5 (7.5-11.0) fl Gran % 45.4 (36.0-66.0) % Eos # (Auto) 0.25 (0-0.5) Absolute Lymphs (auto) 3.18 (1.0-4.6) Absolute Monos (auto) 0.58 (0.0-1.3) Lymphocytes % 42.9 (24.0-44.0) % Monocytes % 7.8 (0.0-12.0) % Eosinophils % 3.4 (0.00-5.0) % Basophils % 0.5 (0.0-0.4) % Absolute Granulocytes 3.36 (1.4-6.9) Basophils # 0.04 (0-0.4) PT (8.83-12.87) SECONDS INR (0.8-3.0) Sodium (137-145) mmol/L Potassium (3.5-5.1) mmol/L Chloride (98-107) mmol/L Carbon Dioxide (22-30) mmol/L Anion Gap (5-15) MEQ/L BUN (9-20) mg/dL Creatinine (0.66-1.25) mg/dL Estimated GFR ML/MIN Glucose (74-106) mg/dL Hemoglobin A1c (4.5-6.0) % Calcium (8.4-10.2) mg/dL Total Bilirubin (0.2-1.3) mg/dL AST (17-59) U/L ALT (0-50) U/L Alkaline Phosphatase (38-126) U/L Troponin I 0.035 H (0.000-0.034) ng/mL NT-Pro-B Natriuret Pep (0-900) pg/mL Serum Total Protein (6.3-8.2) g/dL Albumin (3.5-5.0) g/dL TSH 3rd Generation (0.47-4.68) mIU/L Urine Color (YELLOW) Urine Appearance (CLEAR) Urine pH (5-6) Ur Specific [place] (1.005-1.025) Urine Protein (Negative) Urine Ketones (NEGATIVE) Urine Blood (0-5) Steve/ul Urine Nitrite (NEGATIVE) Urine Bilirubin (NEGATIVE) Urine Urobilinogen (0-1) mg/dL Ur Leukocyte Esterase (NEGATIVE) Urine WBC (Auto) (0-5) /HPF Urine RBC (Auto) (0-2) /HPF U Epithel Cells (Auto) (FEW) /HPF Urine Bacteria (Auto) (NEGATIVE) /HPF Urine Culture Reflexed (NO) Urine Glucose (NEGATIVE) mg/dL Urine Opiates Level NEGATIVE (NEGATIVE) Ur Methadone NEGATIVE (NEGATIVE) Urine Barbiturates NEGATIVE (NEGATIVE) Ur Phencyclidine (PCP) NEGATIVE (NEGATIVE) Urine Amphetamine NEGATIVE (NEGATIVE) U Benzodiazepine Level NEGATIVE (NEGATIVE) Urine Cocaine NEGATIVE (NEGATIVE) Urine Marijuana (THC) NEGATIVE (NEGATIVE) 05/17/19 05/17/19 05/17/19 Range/Units 04:35 04:35 09:30 WBC (4.0-10.5) K/mm3 RBC (4.1-5.6) M/mm3 Hgb (12.5-18.0) gm/dl Hct (42-50) % MCV (78-100) fl MCH (26-32) pg MCHC (32-36) g/dl RDW (11.5-14.0) % Plt Count (150-450) K/mm3 MPV (7.5-11.0) fl Gran % (36.0-66.0) % Eos # (Auto) (0-0.5) Absolute Lymphs (auto) (1.0-4.6) Absolute Monos (auto) (0.0-1.3) Lymphocytes % (24.0-44.0) % Monocytes % (0.0-12.0) % Eosinophils % (0.00-5.0) % Basophils % (0.0-0.4) % Absolute Granulocytes (1.4-6.9) Basophils # (0-0.4) PT (8.83-12.87) SECONDS INR (0.8-3.0) Sodium 140 (137-145) mmol/L Potassium 4.0 (3.5-5.1) mmol/L Chloride 104 (98-107) mmol/L Carbon Dioxide 29 (22-30) mmol/L Anion Gap 11.3 (5-15) MEQ/L BUN 17 (9-20) mg/dL Creatinine 1.16 (0.66-1.25) mg/dL Estimated GFR > 60.0 ML/MIN Glucose 107 H (74-106) mg/dL Hemoglobin A1c 5.71 (4.5-6.0) % Calcium 9.2 (8.4-10.2) mg/dL Total Bilirubin 0.50 (0.2-1.3) mg/dL AST 47 (17-59) U/L ALT 36 (0-50) U/L Alkaline Phosphatase 71 (38-126) U/L Troponin I 0.039 H* (0.000-0.034) ng/mL NT-Pro-B Natriuret Pep 165 (0-900) pg/mL Serum Total Protein 8.0 (6.3-8.2) g/dL Albumin 3.9 (3.5-5.0) g/dL TSH 3rd Generation (0.47-4.68) mIU/L Urine Color (YELLOW) Urine Appearance (CLEAR) Urine pH (5-6) Ur Specific [place] (1.005-1.025) Urine Protein (Negative) Urine Ketones (NEGATIVE) Urine Blood (0-5) Steve/ul Urine Nitrite (NEGATIVE) Urine Bilirubin (NEGATIVE) Urine Urobilinogen (0-1) mg/dL Ur Leukocyte Esterase (NEGATIVE) Urine WBC (Auto) (0-5) /HPF Urine RBC (Auto) (0-2) /HPF U Epithel Cells (Auto) (FEW) /HPF Urine Bacteria (Auto) (NEGATIVE) /HPF Urine Culture Reflexed (NO) Urine Glucose (NEGATIVE) mg/dL Urine Opiates Level (NEGATIVE) Ur Methadone (NEGATIVE) Urine Barbiturates (NEGATIVE) Ur Phencyclidine (PCP) (NEGATIVE) Urine Amphetamine (NEGATIVE) U Benzodiazepine Level (NEGATIVE) Urine Cocaine (NEGATIVE) Urine Marijuana (THC) (NEGATIVE) Micro Results-Entire Visit: Accuchecks Date 05/17/19 Date 05/17/19 Date 05/16/19 Time 11:45 Time 08:09 Time 22:00 Accucheck Value: 150 Accucheck Value: 107 Accucheck Value: 152 - Radiology Exams Ordered Rad Exams-Entire Visit: Radiology Procedures Category Date Time Status HEAD WITHOUT CONTRAST [CT] Stat Exams 05/16/19 13:11 Completed - Procedures and Test Procedures and Tests throughout Hospitalization: Therapy Orders & Screens 05/16/19 16:54 EKG REPEAT IN AM Comment: 05/16/19 17:28 Smoking Cessation Education ONCE Comment: Diagnosis: chest pain elivated troponins Smoking Status: Current every day smoker How long have you smoked: 35 years Have you smoked in the past 12 months: Yes Approximately how many cigarettes per day: 1ppd Do you dip or chew tobacco: No If,Former Smoker,when did you quit: 3 WKS AGO 05/17/19 05:00 EKG ROUTINE Comment: Diagnosis: chest pain elivated troponins - Discharge Discharge Date: 05/17/19 Disposition: Home, Self-Care Condition: Stable Prescriptions: Continue Oxycodone HCl [Oxycodone HCl ER] 10 mg PO BID Atorvastatin Calcium 10 mg PO DAILY Allopurinol 300 mg [Zyloprim 300 mg] 300 mg PO HS Cyclobenzaprine HCl 10 mg [Cyclobenzaprine 10 MG] 10 mg PO BID Folic Acid 1 mg PO BID Fenofibrate Nanocrystallized [Fenofibrate] 48 mg PO HS hydroCHLOROthiazide [Hydrochlorothiazide] 25 mg PO DAILY Sitagliptin Phos/Metformin HCl [Janumet Xr 100-1,000 mg Tablet] 1 tab PO HS Lisinopril 10 mg [Zestril 10 MG] 10 mg PO DAILY Metoprolol Tartrate 50 mg [Lopressor 50 MG] 50 mg PO HS Omeprazole 40 mg PO DAILY Oxycodone / APAP 10/325 mg [Oxycodone-Acetaminophen 10-325] 1 tab PO QID Ergocalciferol (Vitamin D2) [Vitamin D2] 50,000 units PO WEEKLY Gabapentin 800 mg PO QID Instructions: Angina Follow up with: SHAYLA SUN [ACTIVE STAFF] - 05/19/19 1:45 pm JONAS SMITH MD [Primary Care Provider] - 05/24/19 2:30 pm (noble)
[2019-05-17] MEDS ORDERED: Glucophage XR 500 MG PO SCH (22:00)
[2019-05-17] MEDS ORDERED: METFORMIN HCL PO SCH (22:00)
[2019-05-17] MEDS ORDERED: Tricor 145 MG PO SCH (22:00)
[2019-05-17] MEDS ORDERED: SITAGLIPTIN PHOS PO SCH (22:00)
[2019-05-17] MEDS ORDERED: [UNRECOGNIZED DRUG - OTHER] PO SCH (22:00)
[2019-05-17] MEDS ORDERED: Januvia 50 MG PO SCH (22:00)
[2019-05-23] MEDS ORDERED: VITAMIN D2 PO SCH (10:00)
== END 2019-05-17 12:40 | disposition home or self-care (01) ==
LOC: ED 12:39 → MED SURG 16:50 → INTOOBSV 16:50
PROVIDERS: ADMIT General Practice; ATTEND General Practice
DX: R55 Syncope and collapse (principal); R74.8 Abnormal levels of other serum enzymes; R07.9 Chest pain, unspecified; I10 Essential (primary) hypertension; E66.01 Morbid (severe) obesity due to excess calories; E11.9 Type 2 diabetes mellitus without complications; Z79.899 Other long term (current) drug therapy
CPT/HCPCS: 36415; 70450; 80053; 80307; 81001; 82962; 83036; 83880; 84443; 84484; 85025; 85610; 93005; 93041; 93268; 94760; 96360; 96361; 99291; G0378; 36000; 90686; 96374; 99285; A9270-GY

== ENCOUNTER 2019-12-09 18:11 | Emergency (ER) | payer OTHER ==
--- NOTE | 2019-12-09 18:13 | ERPHSYRPT ---
- History of Present Illness Time Seen by Provider: 12/09/19 18:13 Source: patient, family Exam Limitations: no limitations Physician History: This is a 54-year-old obese white male who is a patient of Dr. Smith and presents with right knee and right lower leg pain. Patient has a history of obesity, gout, hypertension, diabetes and gastroesophageal reflux disease. Patient slipped and fell earlier today and he felt that he might have sprained his right knee and lower leg and wants to be sure that there is nothing broken or dislocated. Patient did not injure his head or neck and there is no other complaints of pain. Method of Injury: fell, twisted Occurred: this morning Quality: constant, aching Severity of Pain-Max: mild Severity of Pain-Current: mild Lower Extremities Pain: leg: right, knee: right Modifying Factors: Improves With: movement (Hurts) Associated Symptoms: other (Can bear weight but hurts to do so.) Allergies/Adverse Reactions: codeine [Codeine] Adverse Reaction (Verified 12/09/19 18:22) nausea Iodinated Contrast Media [IV Dye, Iodine Containing Contrast ] Adverse Reaction (Verified 12/09/19 18:22) chest pain Home Medications: Allopurinol 300 mg [Zyloprim 300 mg] 300 mg PO HS 09/30/18 [History] Atorvastatin Calcium 10 mg PO DAILY 09/30/18 [History] Cyclobenzaprine HCl 10 mg [Cyclobenzaprine 10 MG] 10 mg PO BID 09/30/18 [History] Ergocalciferol (Vitamin D2) [Vitamin D2] 50,000 units PO WEEKLY 09/30/18 [History] Fenofibrate Nanocrystallized [Fenofibrate] 48 mg PO HS 09/30/18 [History] Folic Acid 1 mg PO BID 09/30/18 [History] Gabapentin 800 mg PO QID 09/30/18 [History] Lisinopril 10 mg [Zestril 10 MG] 10 mg PO DAILY 09/30/18 [History] Metoprolol Tartrate 50 mg [Lopressor 50 MG] 50 mg PO HS 09/30/18 [History] Omeprazole 40 mg PO DAILY 09/30/18 [History] Oxycodone / APAP 10/325 mg [Oxycodone-Acetaminophen 10-325] 1 tab PO QID 09/30/18 [History] Oxycodone HCl [Oxycodone HCl ER] 10 mg PO BID 09/30/18 [History] Sitagliptin Phos/Metformin HCl [Janumet Xr 100-1,000 mg Tablet] 1 tab PO HS 09/30/18 [History] hydroCHLOROthiazide [Hydrochlorothiazide] 25 mg PO DAILY 09/30/18 [History] Hx Tetanus, Diphtheria Vaccination/Date Given: Yes Hx Influenza Vaccination/Date Given: No Hx Pneumococcal Vaccination/Date Given: No Travel Risk - International Travel Have you traveled outside of the country in past 3 weeks: No - Coronavirus Screening Are you exhibiting any of the following symptoms?: No Close contact with a COVID-19 positive Pt in past 14-21 Days: No - Review of Systems Constitutional: No Symptoms Eyes: No Symptoms Ears, Nose, & Throat: No Symptoms Respiratory: No Symptoms Cardiac: No Symptoms Abdominal/Gastrointestinal: No Symptoms Genitourinary Symptoms: No Symptoms Musculoskeletal: Fall, Injury (Right knee and lower leg) Skin: No Symptoms Neurological: No Symptoms Psychological: No Symptoms Endocrine: No Symptoms Hematologic/Lymphatic: No Symptoms Immunological/Allergic: No Symptoms All Other Systems: Reviewed and Negative - Past Medical History Pertinent Past Medical History: Yes Neurological History: No Pertinent History ENT History: Cataracts Cardiac History: Coronary Artery Disease, Hypertension Respiratory History: Sleep Apnea Endocrine Medical History: Diabetes Type II Musculoskeletal History: Arthritis, Fractures GI Medical History: Gallbladder Disease History: No Pertinent History Psycho-Social History: Depression Male Reproductive Disorders: No Pertinent History Other Medical History: LOW TESTOSTERONE - GOUT,cardiac catherization- has blockages that dont require treatment at this time - Past Surgical History Past Surgical History: Yes Neuro Surgical History: No Pertinent History Cardiac: Cardiac Catheterization Respiratory: No Pertinent History Gastrointestinal: No Pertinent History, Cholecystectomy Genitourinary: No Pertinent History Musculoskeletal: Orthopedic Surgery Male Surgical History: No Pertinent History Other Surgical History: left wrist , diabetic neuropathy, small blockages no treatment at this time, teeth removal, left shoulder replacement - Social History Smoking Status: Current every day smoker How long have you smoked: 35 years Exposure to second hand smoke: Yes Drug Use: none Patient Lives Alone: No Significant Family History: heart disease, diabetes, hypertension, stroke - Nursing Vital Signs Nursing Vital Signs: Initial Vital Signs Pulse Rate 81 12/09/19 18:27 Respiratory Rate 18 12/09/19 18:27 Blood Pressure 155/89 12/09/19 18:27 O2 Sat by Pulse Oximetry 97 12/09/19 18:27 Pain Scale Pain Intensity 10 - Physical Exam General Appearance: no apparent distress, alert, anxiety Eyes, Ears, Nose, Throat Exam: normal ENT inspection, moist mucous membranes Neck Exam: normal inspection, non-tender, supple, full range of motion Cardiovascular/Respiratory Exam: no respiratory distress, No chest non-tender Gastrointestinal/Abdominal Exam: non-tender Back Exam: normal inspection, normal range of motion, No CVA tenderness, No vertebral tenderness Hips Exam: bilateral: non-tender, normal inspection, normal range of motion, no evidence of injury Legs Exam: right leg: bone tenderness, soft tissue tenderness, left leg: non- tender, normal inspection, normal range of motion, no evidence of injury Knees Exam: right knee: bone tenderness, soft tissue tenderness, left knee: non- tender, normal inspection, normal range of motion, no evidence of injury Ankle Exam: bilateral ankle: non-tender, normal inspection, normal range of motion, no evidence of injury Foot Exam: bilateral foot: non-tender, normal inspection, normal range of motion, no evidence of injury Neuro/Tendon Exam: normal sensation, normal motor functions, normal tendon functions, responds to pain Mental Status Exam: alert, oriented x 3, cooperative Skin Exam: normal color, warm, dry SpO2 Interpretation: normal O2 Delivery: Room Air - Course Nursing assessment & vital signs reviewed: Yes Ordered Tests: Active Orders 24 hr Category Date Time Status KNEE (3 VIEWS) Stat Exams 12/09/19 18:47 Taken LOWER LEG Stat Exams 12/09/19 18:47 Taken - Progress Progress: unchanged, pain not gone completely, re-examined Progress Note: 12/09/19 19:16 X-ray of right knee reveals no evidence of any acute fracture or dislocation. X-ray of right lower leg reveals no evidence of any acute fracture or dislocation. Counseled pt/family regarding: diagnosis, need for follow-up, rad results - Departure Departure Disposition: Home Clinical Impression: Fall with injury, Right knee pain, Pain in right lower leg Condition: Stable Critical Care Time: No Referrals: JONAS SMITH MD [Primary Care Provider] - [facility]-Ortho M-F [phone] Additional Instructions: Ice pack to right knee and right lower leg 3 times a day for the next [address] Smith office on Thursday for further management. May also follow-up at the [facility] orthopedic clinic for further evaluation and management
[2019-12-09] MEDS ORDERED: PERCOCET TABLET 5/325MG PO STA (19:19)
[2019-12-09] MEDS ORDERED: PERCOCET TABLET 5/325MG ONE (19:20)
[2019-12-09 19:36] VITALS: BP 142/89; PULSE 79; O2SAT 98
--- NOTE | 2019-12-09 22:03 | XRAY ---
Indication: Pain following twisting injury. Comparison: None 2 view right lower leg demonstrates tiny posterior/small plantar heel spurs and multiple tiny anterior soft tissue calcified granulomas. No other bony, articular, or soft tissue abnormalities. Knee reported separately.
--- NOTE | 2019-12-09 22:08 | XRAY ---
Indication: Pain following twisting injury. Comparison: August 10, 2010. 3 view right knee demonstrates progressive worsening mild/moderate tricompartmental degenerative changes especially patellofemoral compartment. Incidental bipartite patella and minimal vascular calcifications. No other bony, articular, or soft tissue abnormalities.
== END 2019-12-09 19:55 | disposition home or self-care (01) ==
LOC: ED 18:11
DX: M25.561 Pain in right knee (principal); I10 Essential (primary) hypertension; E11.9 Type 2 diabetes mellitus without complications; K21.9 Gastro-esophageal reflux disease without esophagitis; Z79.899 Other long term (current) drug therapy; I25.10 Atherosclerotic heart disease of native coronary artery without angina pectoris; G47.30 Sleep apnea, unspecified; F32.9 Major depressive disorder, single episode, unspecified
CPT/HCPCS: 73562; 73590; 99283; A9270-GY

== ENCOUNTER 2020-05-07 04:51 | Emergency (ER) | payer OTHER ==
--- NOTE | 2020-05-07 05:16 | ERPHSYRPT ---
<JAZMINE MORENO - Last Filed: 05/07/20 05:56> - History of Present Illness Time Seen by Provider: 05/07/20 05:14 Historian: patient Exam Limitations: no limitations Patient Subjective Stated Complaint: pt states that "The pain in my shoulder began yesterday and began to feel weird this morning." Triage Nursing Assessment: pt ambulated into the er; pt is axo x4; c/o left shoulder pain; states 8/10 pain to left should with breathing; no decreased ROM; strong radial pulses; good cap refill; clear lung sounds in all lobes; clear heart tone; active bowel sounds; pt states increased pain with deep breathing; pt states heaviness in left arm; hypertensive Physician History: Pain in left shoulder blade area since yesterday. No injury. Hx of chronic left shoulder pain. No chest pain. No CAD. Timing/Duration: yesterday Activities at Onset: none Quality: aching Location: shoulder (left scapula) Chest Pain Radiation: no radiation Severity of Pain-Max: moderate Severity of Pain-Current: moderate Modifying Factors: Improves With: movement Associated Symptoms: denies symptoms Prior Chest Pain/Cardiac Workup: cardiac cath (few years ago, no stent) Nitro Today/Relief: no nitro taken today Aspirin Treatment Today: no aspirin today Allergies/Adverse Reactions: codeine [Codeine] Adverse Reaction (Verified 05/07/20 04:53) nausea Iodinated Contrast Media [IV Dye, Iodine Containing Contrast ] Adverse Reaction (Verified 05/07/20 04:53) chest pain Home Medications: Allopurinol 300 mg [Zyloprim 300 mg] 300 mg PO HS 09/30/18 [History] Atorvastatin Calcium 10 mg PO DAILY 09/30/18 [History] Cyclobenzaprine HCl 10 mg [Cyclobenzaprine 10 MG] 10 mg PO BID 09/30/18 [History] Ergocalciferol (Vitamin D2) [Vitamin D2] 50,000 units PO WEEKLY 09/30/18 [History] Fenofibrate Nanocrystallized [Fenofibrate] 48 mg PO HS 09/30/18 [History] Folic Acid 1 mg PO BID 09/30/18 [History] Gabapentin 800 mg PO QID 09/30/18 [History] Lisinopril 10 mg [Zestril 10 MG] 10 mg PO DAILY 09/30/18 [History] Metoprolol Tartrate 50 mg [Lopressor 50 MG] 50 mg PO HS 09/30/18 [History] Omeprazole 40 mg PO DAILY 09/30/18 [History] Sitagliptin Phos/Metformin HCl [Janumet Xr 100-1,000 mg Tablet] 1 tab PO HS 09/30/18 [History] hydroCHLOROthiazide [Hydrochlorothiazide] 25 mg PO DAILY 09/30/18 [History] Aspirin EC 325 mg [Ecotrin 325 MG] 325 mg PO DAILY 05/07/20 [History] Furosemide 20 mg [Lasix 20 mg] 20 mg PO DAILY 05/07/20 [History] Semaglutide [Ozempic] 1 iu SQ WEEKLY 05/07/20 [History] Hx Tetanus, Diphtheria Vaccination/Date Given: Yes Hx Influenza Vaccination/Date Given: No Hx Pneumococcal Vaccination/Date Given: No Travel Risk - International Travel Have you traveled outside of the country in past 3 weeks: No - Coronavirus Screening Are you exhibiting any of the following symptoms?: No Close contact with a COVID-19 positive Pt in past 14-21 Days: No - Review of Systems Constitutional: No Symptoms Eyes: No Symptoms Ears, Nose, & Throat: No Symptoms Respiratory: No Symptoms Cardiac: No Symptoms Abdominal/Gastrointestinal: No Symptoms Genitourinary Symptoms: No Symptoms Musculoskeletal: No Symptoms Skin: No Symptoms Neurological: No Symptoms Psychological: No Symptoms Endocrine: No Symptoms Hematologic/Lymphatic: No Symptoms Immunological/Allergic: No Symptoms All Other Systems: Reviewed and Negative - Past Medical History Pertinent Past Medical History: Yes Neurological History: No Pertinent History ENT History: Cataracts Cardiac History: Coronary Artery Disease, Hypertension Respiratory History: Sleep Apnea Endocrine Medical History: Diabetes Type II Musculoskeletal History: Arthritis, Fractures GI Medical History: Gallbladder Disease History: No Pertinent History Psycho-Social History: Depression Male Reproductive Disorders: No Pertinent History Other Medical History: LOW TESTOSTERONE - GOUT,cardiac catherization- has blockages that dont require treatment at this time - Past Surgical History Past Surgical History: Yes Neuro Surgical History: No Pertinent History Cardiac: Cardiac Catheterization Respiratory: No Pertinent History Gastrointestinal: No Pertinent History, Cholecystectomy Genitourinary: No Pertinent History Musculoskeletal: Orthopedic Surgery Male Surgical History: No Pertinent History Other Surgical History: left wrist , diabetic neuropathy, small blockages no treatment at this time, teeth removal, left shoulder replacement - Social History Smoking Status: Current every day smoker How long have you smoked: 35 years Exposure to second hand smoke: Yes Drug Use: none Patient Lives Alone: No Significant Family History: heart disease, diabetes, hypertension, stroke - Physical Exam General Appearance: no apparent distress, alert, obese Eye Exam: PERRL/EOMI Ears, Nose, Throat Exam: normal ENT inspection Neck Exam: normal inspection Respiratory Exam: normal breath sounds Cardiovascular Exam: regular rate/rhythm, normal heart sounds Gastrointestinal/Abdomen Exam: soft, normal bowel sounds Rectal Exam: deferred Back Exam: normal inspection Extremity Exam: normal inspection, other (TTP left scapula) Neurologic Exam: alert, oriented x 3, cooperative Skin Exam: normal color, warm Lymphatic Exam: No adenopathy SpO2 Interpretation: normal SpO2: 98 O2 Delivery: Room Air - Course Nursing assessment & vital signs reviewed: Yes EKG Interpreted by Me: RATE (74), Sinus Rhythm, NORMAL AXIS, NORMAL INTERVALS, NORMAL QRS, NORMAL ST-T, Other (ventricular trigeminy) - Progress Progress: improved Air Movement: good Progress Note: 05/07/20 06:[address] Herring. Work-up pending. Blood Culture(s) Obtained: No Antibiotics given: No - Departure Clinical Impression: Chest pain, rule out acute myocardial infarction Condition: Stable Critical Care Time: No Referrals: JONAS SMITH MD [Primary Care Provider] - Additional Instructions: We have advised you Hospital admission for further evaluation and treatment of your cardiac dysrhythmia. Your ECG reveals a trigeminy and PVCs. Your cardiac troponin is marginally elevated at 0.029. Given your history of obesity and coronary artery disease we feel admission is warranted for further evaluation and treatment. Your back pain may be a chest pain equivalent with a different/atypical manifestation. You have decided to leave AGAINST MEDICAL ADVICE. Leaving AGAINST MEDICAL ADVICE may increase your risk of delayed diagnosis, increased risk of morbidity, mortality, short and long-term disability including . In spite of your risks you have decided to leave AGAINST MEDICAL ADVICE. Please understand that you may return to our ED at any point for hospitalization. Otherwise please follow-up with your primary care doctor/hygiene teacher within 48 hours for reevaluation. If your symptoms worsen continue or fail to improve your highly advised to return to our emergency department or your nearest emergency department for further evaluation and treatment. Discharge/Care Plan CHIP RAY was seen on 05/07/20 in the Emergency Room. The patient was counseled regarding Diagnosis,Lab results, Imaging studies, need for follow up and when to return to the Emergency Room. Prescriptions given: Discharge Note I have spoken with the patient and/or caregivers. I have explained the patient's condition, diagnosis and treatment plan based on the information available to me at this time. I have answered the patient's and/or caregiver's questions and addressed any concerns. The patient and/or caregivers have as good understanding of the patient's diagnosis, condition and treatment plan as can be expected at this point. The vital signs have been stable. The patient's condition is stable and appropriate for discharge from the emergency department. The patient will pursue further outpatient evaluation with the primary care physician or other designated or consulting physician as outlined in the discharge instructions. The patient and/or caregivers are agreeable to this plan of care and follow-up instructions have been explained in detail. The patient and/or caregivers have received these instruction. The patient/and or caregivers are aware that any significant change in condition or worsening of symptoms should prompt an immediate return to this or the closest emergency department or call 911. <JESÚS HERRING - Last Filed: 05/07/20 07:02> - Nursing Vital Signs Nursing Vital Signs: Initial Vital Signs Temperature 98.4 F 05/07/20 04:58 Pulse Rate 75 05/07/20 04:58 Respiratory Rate 18 05/07/20 04:58 Blood Pressure 153/76 05/07/20 04:58 O2 Sat by Pulse Oximetry 98 05/07/20 04:58 Pain Scale Pain Intensity 6 - Radiology Exams Chest X-ray Interpretation: Interpreted by me (Normal chest x-ray, no acute findings no infiltrate no consolidation normal bony thorax normal cardiac silhouette) Shoulder X-ray Interpretation: Interpreted by me (Early degenerative glenohumeral arthritis. No fractures / dislocations.) Ordered Tests: Active Orders 24 hr Category Date Time Status CHEST 1 VIEW (PORTABLE) Stat Exams 05/07/20 05:22 Taken SHOULDER Stat Exams 05/07/20 05:23 Taken CBC W DIFF Stat Lab 05/07/20 05:04 Completed CMP Routine Lab 05/07/20 05:04 Completed D-DIMER QUANTITATIVE Stat Lab 05/07/20 05:04 Completed NT PRO BNP Routine Lab 05/07/20 05:04 Completed TROPONIN Q3H Lab 05/07/20 05:04 Completed TROPONIN Q3H Lab 05/07/20 08:30 Ordered TROPONIN Q3H Lab 05/07/20 11:30 Ordered TROPONIN Q3H Lab 05/07/20 14:30 Ordered TROPONIN Q3H Lab 05/07/20 17:30 Ordered TROPONIN Q3H Lab 05/07/20 20:30 Ordered TROPONIN Q3H Lab 05/07/20 23:30 Ordered Medication Summary Discontinued Medications Generic Name Dose Route Start Last Admin Trade Name Freq PRN Reason Stop Dose Admin Aspirin 324 mg 05/07/20 05:28 05/07/20 05:44 Baby Aspirin 81 Mg Chew PO 05/07/20 05:29 324 mg STAT ONE Administration Nitroglycerin 0.4 mg 05/07/20 05:27 05/07/20 05:43 Nitrostat 0.4 Mg (Ed) SL 05/07/20 05:28 0.4 mg STAT ONE Administration Nitroglycerin 0.4 mg 05/07/20 06:10 05/07/20 06:13 Nitrostat 0.4 Mg (Ed) SL 05/07/20 06:11 Not Given STAT ONE Lab/Rad Data: Laboratory Result Diagrams 05/07/20 05:04 05/07/20 05:04 Laboratory Results 05/07/20 05/07/20 05/07/20 Range/Units 05:04 05:04 05:04 WBC 13.4 H (4.0-10.5) K/mm3 RBC 4.97 (4.1-5.6) M/mm3 Hgb 15.4 (12.5-18.0) gm/dl Hct 45.7 (42-50) % MCV 92.0 (78-100) fl MCH 31.0 (26-32) pg MCHC 33.7 (32-36) g/dl RDW 13.7 (11.5-14.0) % Plt Count 175 (150-450) K/mm3 MPV 10.4 (7.5-11.0) fl Gran % 52.4 (36.0-66.0) % Eos # (Auto) 0.33 (0-0.5) Absolute Lymphs (auto) 4.85 H (1.0-4.6) Absolute Monos (auto) 1.17 (0.0-1.3) Lymphocytes % 36.2 (24.0-44.0) % Monocytes % 8.7 (0.0-12.0) % Eosinophils % 2.5 (0.00-5.0) % Basophils % 0.2 (0.0-0.4) % Absolute Granulocytes 7.02 H (1.4-6.9) Basophils # 0.03 (0-0.4) D-Dimer 489 (215-500) ng/mL Sodium 138 (137-145) mmol/L Potassium 3.8 (3.5-5.1) mmol/L Chloride 101 (98-107) mmol/L Carbon Dioxide 27 (22-30) mmol/L Anion Gap 13.3 (5-15) MEQ/L BUN 23 H (9-20) mg/dL Creatinine 1.23 (0.66-1.25) mg/dL Estimated GFR > 60.0 ML/MIN Glucose 103 (74-106) mg/dL Calcium 9.6 (8.4-10.2) mg/dL Total Bilirubin 0.50 (0.2-1.3) mg/dL AST 33 (17-59) U/L ALT 30 (0-50) U/L Alkaline Phosphatase 87 (38-126) U/L Troponin I 0.029 (0.000-0.034) ng/mL NT-Pro-B Natriuret Pep 157 (0-900) pg/mL Serum Total Protein 8.3 H (6.3-8.2) g/dL Albumin 4.3 (3.5-5.0) g/dL - Progress Progress Note: Patient endorsed to Dr. Herring at approximately [address] Herring advised to follow- up on pending labs and imaging studies. X-ray of chest is negative for acute pathology. X-ray of left shoulder is negative for fracture dislocation. Initial troponin within normal range however the higher limits of normal. EKG a bnormal which reveals trigeminy. Patient's back pain may be chest pain equivalent. We advised hospitalization. Patient declined. We contacted Dr. Smith who is advised the patient's refusal to admission. Patient agrees to follow-up with Dr. Smith's office within 48 hours. 05/07/20 06:59 Counseled pt/family regarding: lab results, diagnosis, need for follow-up, rad results - Departure Departure Disposition: AMA
[2020-05-07] MEDS ORDERED: Nitrostat 0.4 MG (ED) SL ONE ×2 (05:27→06:10)
[2020-05-07 05:28] LABS: Absolute Neutrophil Ct (ANC) 7.02 (1.4-6.9); BASOPHIL % 0.2 % (0.0-0.4); Basophil (Absolute #) 0.03 (0-0.4); Eosinophil % 2.5 % (0.00-5.0); Eosinophil (Absolute #) 0.33 (0-0.5); Hematocrit 45.7 % (42-50); Hemoglobin 15.4 gm/dl (12.5-18.0); Lymphocyte (Absolute #) 4.85 (1.0-4.6); Lymphocytes % 36.2 % (24.0-44.0); Mean Corpuscular Hgb Concent. 33.7 g/dl (32-36); Mean Platelet Volume 10.4 fl (7.5-11.0); Monocyte (Absolute #) 1.17 (0.0-1.3); Monocytes % 8.7 % (0.0-12.0); Neutrophil % 52.4 % (36.0-66.0); Platelet Count 175 K/mm3 (150-450); Red Blood Count 4.97 M/mm3 (4.1-5.6); Red Cell Distribution Width 13.7 % (11.5-14.0); White Blood Count 13.4 K/mm3 (4.0-10.5)
[2020-05-07] MEDS ORDERED: BABY ASPIRIN 81 MG CHEW PO ONE (05:28)
[2020-05-07 05:57] LABS: ALBUMIN 4.3 g/dL (3.5-5.0); ALKALINE PHOSPHATASE 87 U/L (38-126); ANION GAP 13.3 MEQ/L (5-15); BLOOD UREA NITROGEN 23 mg/dL (9-20); CHLORIDE 101 mmol/L (98-107); Calcium 9.6 mg/dL (8.4-10.2); Carbon Dioxide 27 mmol/L (22-30); Creatinine 1 1.23 mg/dL (0.66-1.25); EST GLOMERULAR FILTRATION RATE > 60.0 ML/MIN; Glucose 103 mg/dL (74-106); NT PRO BNP 157 pg/mL (0-900); Potassium 3.8 mmol/L (3.5-5.1); SGOT/AST 33 U/L (17-59); SGPT/ALT 30 U/L (0-50); SODIUM 138 mmol/L (137-145); TROPONIN 0.029 ng/mL (0.000-0.034); Total Protein 8.3 g/dL (6.3-8.2)
[2020-05-07 07:01] VITALS: BP 114/74; PULSE 72; O2SAT 96
--- NOTE | 2020-05-07 08:45 | XRAY ---
Indication: Pain. Comparison: None 3 view left shoulder demonstrates tiny spurring distal clavicle and acromion process. Mild degenerative changes throughout visualized spine. No other bony, articular, or soft tissue abnormalities.
--- NOTE | 2020-05-07 08:45 | XRAY ---
Indication: Chest and left shoulder pain. Comparison: September 29, 2018. Portable chest again demonstrates normal heart and lungs. Bony thorax intact again with mild degenerative changes. No new/acute findings.
== END 2020-05-07 07:05 | disposition home or self-care (01) ==
LOC: ED 04:51
DX: R07.9 Chest pain, unspecified (principal)
CPT/HCPCS: 36000; 36415; 71045; 73030; 80053; 83880; 84484; 85025; 85379; 93005; 99284; A9270-GY

== ENCOUNTER 2021-03-30 23:11 | Emergency (ER) | payer OTHER ==
--- NOTE | 2021-03-30 23:21 | ERPHSYRPT ---
- History of Present Illness Time Seen by Provider: 03/30/21 23:21 Source: patient Exam Limitations: no limitations Physician History: The patient is a 55-year-old male who presents with a chief complaint of chest pain. Onset reported was 2 days ago. His pain described as a dull ache located to the left side of his chest that radiates to his left upper quadrant of his abdomen. The pain is constant, mild and reportedly got worse at around 1830 this evening. He denies nausea, vomiting, diaphoresis, shortness of breath, shoulder pain, neck pain jaw pain or arm pain. He denies any diarrhea, cough, hemoptysis or any fever or chills. He endorsed having a headache that started after he took 2 nitro with reported little relief. He decided to come to the emergency department this evening after his encouraged him to get checked out. Timing/Duration: day(s) (2) Severity: mild Associated Symptoms: abdominal pain, chest pain, headaches, No nausea, No vomiting, No shortness of breath, No cough, No chills, No fever, No syncope Allergies/Adverse Reactions: codeine [Codeine] Adverse Reaction (Verified 03/30/21 23:27) nausea Iodinated Contrast Media [IV Dye, Iodine Containing Contrast ] Adverse Reaction (Verified 03/30/21 23:27) chest pain Home Medications: Allopurinol 300 mg [Zyloprim 300 mg] 300 mg PO HS 09/30/18 [History] Atorvastatin Calcium 10 mg PO DAILY 09/30/18 [History] Cyclobenzaprine HCl 10 mg [Cyclobenzaprine 10 MG] 10 mg PO BID 09/30/18 [History] Ergocalciferol (Vitamin D2) [Vitamin D2] 50,000 units PO WEEKLY 09/30/18 [History] Fenofibrate Nanocrystallized [Fenofibrate] 48 mg PO HS 09/30/18 [History] Folic Acid 1 mg PO BID 09/30/18 [History] Gabapentin 800 mg PO QID 09/30/18 [History] Lisinopril 10 mg [Zestril 10 MG] 10 mg PO DAILY 09/30/18 [History] Metoprolol Tartrate 50 mg [Lopressor 50 MG] 50 mg PO HS 09/30/18 [History] Omeprazole 40 mg PO DAILY 09/30/18 [History] Sitagliptin Phos/Metformin HCl [Janumet Xr 100-1,000 mg Tablet] 1 tab PO HS 09/30/18 [History] hydroCHLOROthiazide [Hydrochlorothiazide] 25 mg PO DAILY 09/30/18 [History] Aspirin EC 325 mg [Ecotrin 325 MG] 325 mg PO DAILY 05/07/20 [History] Furosemide 20 mg [Lasix 20 mg] 20 mg PO DAILY 05/07/20 [History] Semaglutide [Ozempic] 1 iu SQ WEEKLY 05/07/20 [History] Hx Tetanus, Diphtheria Vaccination/Date Given: Yes Hx Influenza Vaccination/Date Given: No Hx Pneumococcal Vaccination/Date Given: No - Review of Systems Constitutional: No Fever, No Chills, No Fatigue Eyes: No Symptoms Ears, Nose, & Throat: No Symptoms, No Nose Pain, No Nose Congestion Respiratory: No Cough, No Dyspnea, No Dyspnea on Exertion (ORDAZ), No Stridor, No Wheezing Cardiac: Chest Pain Abdominal/Gastrointestinal: Abdominal Pain, No Nausea, No Vomiting Musculoskeletal: No Symptoms Skin: No Symptoms Neurological: Headache Psychological: No Symptoms All Other Systems: Reviewed and Negative - Past Medical History Pertinent Past Medical History: Yes Neurological History: No Pertinent History ENT History: Cataracts Cardiac History: Coronary Artery Disease, Hypertension Respiratory History: Sleep Apnea Endocrine Medical History: Diabetes Type II Musculoskeletal History: Arthritis, Fractures GI Medical History: Gallbladder Disease History: No Pertinent History Psycho-Social History: Depression Male Reproductive Disorders: No Pertinent History Other Medical History: LOW TESTOSTERONE - GOUT,cardiac catherization- has blockages that dont require treatment at this time - Past Surgical History Past Surgical History: Yes Neuro Surgical History: No Pertinent History Cardiac: Cardiac Catheterization Respiratory: No Pertinent History Gastrointestinal: No Pertinent History, Cholecystectomy Genitourinary: No Pertinent History Musculoskeletal: Orthopedic Surgery Male Surgical History: No Pertinent History Other Surgical History: left wrist , diabetic neuropathy, small blockages no treatment at this time, teeth removal, left shoulder replacement - Social History Smoking Status: Current every day smoker How long have you smoked: 35 years Exposure to second hand smoke: Yes Drug Use: none Patient Lives Alone: No Significant Family History: heart disease, diabetes, hypertension, stroke - Nursing Vital Signs Nursing Vital Signs: Initial Vital Signs Temperature 97.8 F 11/20/21 23:13 Pulse Rate 75 03/30/21 23:13 Respiratory Rate 16 03/30/21 23:13 Blood Pressure 153/92 03/30/21 23:13 O2 Sat by Pulse Oximetry 98 03/30/21 23:13 Pain Scale Pain Intensity 5 - Physical Exam General Appearance: no apparent distress, alert, obese Ears, Nose, Throat Exam: normal ENT inspection Neck Exam: normal inspection, No JVD Respiratory Exam: normal breath sounds, lungs clear, airway intact, No chest tenderness, No respiratory distress Cardiovascular Exam: regular rate/rhythm, normal heart sounds, normal peripheral pulses, capillary refill <2 sec, No murmur, No friction rub, No gallop Gastrointestinal/Abdomen Exam: soft, No tenderness, No distention, No mass, No guarding Extremity Exam: normal inspection Neurologic Exam: alert, oriented x 3, cooperative Skin Exam: normal color, warm, dry, No rash, No petechiae, No jaundice SpO2 Interpretation: normal O2 Delivery: Room Air - Radiology Exams Chest X-ray Interpretation: Interpreted by me, Reviewed by me (No acute cardiopulmonary process. Awaiting formal radiology review) Ordered Tests: Active Orders 24 hr Category Date Time Status Skip Pitman STAT Care 03/30/21 23:28 Active EKG-ER Only STAT Care 03/30/21 23:27 Active EKG-ER Only STAT Care 03/31/21 00:56 Active IV Insertion STAT Care 03/30/21 23:27 Active CHEST 2 VIEWS (PA AND LAT) Stat Exams 03/30/21 23:28 Taken BMP Stat Lab 03/30/21 23:37 Completed CBC W DIFF Stat Lab 03/30/21 23:37 Completed D-DIMER QUANTITATIVE Stat Lab 03/30/21 23:37 Completed Hepatic Function Panel Stat Lab 03/31/21 00:42 Completed LIPASE Stat Lab 03/30/21 23:37 Completed TROPONIN Stat Lab 03/30/21 23:37 Completed TROPONIN Stat Lab 03/31/21 01:09 Completed Medication Summary Discontinued Medications Generic Name Dose Route Start Last Admin Trade Name Freq PRN Reason Stop Dose Admin Pantoprazole Sodium 40 mg 03/30/21 23:29 03/30/21 23:42 Pantoprazole 40 Mg Vial IV 03/30/21 23:30 40 mg STAT ONE Administration Pantoprazole Sodium Confirm 03/30/21 23:35 Pantoprazole 40 Mg Vial Administered 03/30/21 23:36 Dose 40 mg IV .K-MED ONE Lab/Rad Data: Laboratory Result Diagrams 03/30/21 23:37 03/30/21 23:37 Laboratory Results 03/31/21 03/31/21 03/30/21 Range/Units 01:09 00:42 23:37 WBC (4.0-10.5) K/mm3 RBC (4.1-5.6) M/mm3 Hgb (12.5-18.0) gm/dl Hct (42-50) % MCV (78-100) fl MCH (26-32) pg MCHC (32-36) g/dl RDW (11.5-14.0) % Plt Count (150-450) K/mm3 MPV (7.5-11.0) fl Gran % (36.0-66.0) % Eos # (Auto) (0-0.5) Absolute Lymphs (auto) (1.0-4.6) Absolute Monos (auto) (0.0-1.3) Lymphocytes % (24.0-44.0) % Monocytes % (0.0-12.0) % Eosinophils % (0.00-5.0) % Basophils % (0.0-0.4) % Absolute Granulocytes (1.4-6.9) Basophils # (0-0.4) D-Dimer 499 (215-500) ng/mL Sodium (137-145) mmol/L Potassium (3.5-5.1) mmol/L Chloride (98-107) mmol/L Carbon Dioxide (22-30) mmol/L Anion Gap (5-15) MEQ/L BUN (9-20) mg/dL Creatinine (0.66-1.25) mg/dL Estimated GFR ML/MIN Glucose (74-106) mg/dL Calcium (8.4-10.2) mg/dL Total Bilirubin 0.80 (0.2-1.3) mg/dL Direct Bilirubin 0 (0.0-0.4) mg/dL AST 30 (17-59) U/L ALT 23 (0-50) U/L Alkaline Phosphatase 68 (38-126) U/L Troponin I < 0.012 (0.000-0.034) ng/mL Serum Total Protein 7.5 (6.3-8.2) g/dL Albumin 4.3 (3.5-5.0) g/dL Lipase (23-300) U/L 03/30/21 03/30/21 Range/Units 23:37 23:37 WBC 8.8 (4.0-10.5) K/mm3 RBC 4.60 (4.1-5.6) M/mm3 Hgb 14.1 (12.5-18.0) gm/dl Hct 42.8 (42-50) % MCV 93.0 (78-100) fl MCH 30.7 (26-32) pg MCHC 32.9 (32-36) g/dl RDW 14.0 (11.5-14.0) % Plt Count 176 (150-450) K/mm3 MPV 9.6 (7.5-11.0) fl Gran % 55.3 (36.0-66.0) % Eos # (Auto) 0.16 (0-0.5) Absolute Lymphs (auto) 3.06 (1.0-4.6) Absolute Monos (auto) 0.67 (0.0-1.3) Lymphocytes % 35.0 (24.0-44.0) % Monocytes % 7.7 (0.0-12.0) % Eosinophils % 1.8 (0.00-5.0) % Basophils % 0.2 (0.0-0.4) % Absolute Granulocytes 4.84 (1.4-6.9) Basophils # 0.02 (0-0.4) D-Dimer (215-500) ng/mL Sodium 140 (137-145) mmol/L Potassium 4.0 (3.5-5.1) mmol/L Chloride 103 (98-107) mmol/L Carbon Dioxide 28 (22-30) mmol/L Anion Gap 13.6 (5-15) MEQ/L BUN 17 (9-20) mg/dL Creatinine 1.12 (0.66-1.25) mg/dL Estimated GFR > 60.0 ML/MIN Glucose 84 (74-106) mg/dL Calcium 9.7 (8.4-10.2) mg/dL Total Bilirubin (0.2-1.3) mg/dL Direct Bilirubin (0.0-0.4) mg/dL AST (17-59) U/L ALT (0-50) U/L Alkaline Phosphatase (38-126) U/L Troponin I 0.014 (0.000-0.034) ng/mL Serum Total Protein (6.3-8.2) g/dL Albumin (3.5-5.0) g/dL Lipase 405 H (23-300) U/L - Progress Progress: unchanged, improved Progress Note: 03/31/21 00:30 Lipase is mildly elevated, but not 3 x the upper limits of normal and less likely reflecting pancreatitis given his symptoms are not typical for pancreatitis either. 03/31/21 00:44 03/31/21 00:46 The patient's heart score was calculated to be 3. I have a low gestalt for PE and as well score for PE is low and with a D-dimer within normal limits this further lessens my suspicion and therefore further work-up in the form of a CTA of his chest was deferred. 03/31/21 01:44 Repeat EKG showing sinus rhythm with no evidence of acute myocardial ischemia or injury pattern. Repeat troponin within normal limits. 03/31/21 01:51 The patient was discharged and was asymptomatic at the time of discharge. Serial troponins were within normal limits and serial EKG showed no evidence of acute myocardial ischemia or injury pattern. His chest pain seems atypical for ACS at this time. Also have a low suspicion for aortic dissection. I think the patient would be safe to be discharged home to follow-up with his primary care provider this coming week. He was instructed to call make an appointment. ED r eturn precautions for chest pain was given. He agreed with and verbally understood the discharge plan and was comfortable with being discharged home. Discussed with : Chema Counseled pt/family regarding: lab results, diagnosis, need for follow-up, rad results - Departure Departure Disposition: Home Clinical Impression: Chest pain, unspecified, Elevated lipase Condition: Stable Critical Care Time: No Referrals: JONAS SMITH MD [Primary Care Provider] - Follow up/PCP as directed Instructions: Chest Pain (DC)
[2021-03-30] MEDS ORDERED: PROTONIX 40 MG IV IV ONE (23:35)
[2021-03-30 23:40] LABS: Absolute Neutrophil Ct (ANC) 4.84 (1.4-6.9); BASOPHIL % 0.2 % (0.0-0.4); Basophil (Absolute #) 0.02 (0-0.4); Eosinophil % 1.8 % (0.00-5.0); Eosinophil (Absolute #) 0.16 (0-0.5); Hematocrit 42.8 % (42-50); Hemoglobin 14.1 gm/dl (12.5-18.0); Lymphocyte (Absolute #) 3.06 (1.0-4.6); Mean Corpuscular Hemoglobin 30.7 pg (26-32); Mean Corpuscular Hgb Concent. 32.9 g/dl (32-36); Mean Platelet Volume 9.6 fl (7.5-11.0); Monocyte (Absolute #) 0.67 (0.0-1.3); Monocytes % 7.7 % (0.0-12.0); Neutrophil % 55.3 % (36.0-66.0); Platelet Count 176 K/mm3 (150-450); White Blood Count 8.8 K/mm3 (4.0-10.5)
[2021-03-30] MEDS: PROTONIX 40 MG IV IV ONE (23:42)
[2021-03-31 00:03] LABS: ANION GAP 13.6 MEQ/L (5-15); BLOOD UREA NITROGEN 17 mg/dL (9-20); CHLORIDE 103 mmol/L (98-107); Calcium 9.7 mg/dL (8.4-10.2); Carbon Dioxide 28 mmol/L (22-30); Creatinine 1 1.12 mg/dL (0.66-1.25); EST GLOMERULAR FILTRATION RATE > 60.0 ML/MIN; Glucose 84 mg/dL (74-106); LIPASE 405 U/L (23-300); SODIUM 140 mmol/L (137-145); TROPONIN 0.014 ng/mL (0.000-0.034)
[2021-03-31 00:50] LABS: ALBUMIN 4.3 g/dL (3.5-5.0); BILIRUBIN,TOTAL 0.8 mg/dL (0.2-1.3); Total Protein 7.5 g/dL (6.3-8.2)
--- NOTE | 2021-03-31 07:52 | XRAY ---
Indication: Pain. Comparison: May 07, 2020. PA/lateral chest obtained. Posterior gutters not included on the lateral view. No focal infiltrate, consolidation, or large effusion. Heart and mediastinal structures within normal limits. Bony thorax intact with mild degenerative changes. Impression: Nonacute limited chest with chronic features.
[2021-04-01 17:07] VITALS: BP 152/77; PULSE 78; O2SAT 96
== END 2021-03-31 01:58 | disposition home or self-care (01) ==
LOC: ED 23:11
DX: R07.9 Chest pain, unspecified (principal); E78.41 Elevated Lipoprotein(a); Z79.899 Other long term (current) drug therapy; I10 Essential (primary) hypertension; E11.8 Type 2 diabetes mellitus with unspecified complications; Z79.84 Long term (current) use of oral hypoglycemic drugs; Z72.0 Tobacco use
CPT/HCPCS: 36000; 36415; 71046; 80048; 80076; 83690; 84484; 85025; 85379; 93005; 93041; 96374; 99284

== ENCOUNTER 2022-04-18 18:20 | Emergency (ER) | payer OTHER ==
--- NOTE | 2022-04-18 18:53 | ERPHSYRPT ---
- History of Present Illness Source: patient Exam Limitations: no limitations Patient Subjective Stated Complaint: pt reports cough, fever, runny nose starting yesterday, states he was exposed to RSV Triage Nursing Assessment: pt is aox3, pupils perrl, afebrile, resps easy and non labored, dry cough noted, pt radial pulses strong and equal, cap refill < 3 seconds, pt skin pink warm dry. pt appears in no distress. Physician History: 56 yo wm w cough/coryza/resolved fever x [address]/N/V/D/DIAZ/myalgias/arthralgias. Pt smokes 1ppd and denies chest pain/dyspnea. Timing/Duration: other (2 days) Cough Quality/Degree: moderate, dry cough Possible Cause: no prior episodes Modifying Factors: Improves With: coughing Associated Symptoms: denies symptoms, fever, nasal congestion, nasal drainage Allergies/Adverse Reactions: codeine [Codeine] Adverse Reaction (Verified 04/18/22 18:48) nausea Iodinated Contrast Media [IV Dye, Iodine Containing Contrast ] Adverse Reaction (Verified 04/18/22 18:48) chest pain Home Medications: Allopurinol 300 mg [Zyloprim 300 mg] 300 mg PO HS 09/30/18 [History] Atorvastatin Calcium 10 mg PO DAILY 09/30/18 [History] Cyclobenzaprine HCl 10 mg [Cyclobenzaprine 10 MG] 10 mg PO BID 09/30/18 [History] Ergocalciferol (Vitamin D2) [Vitamin D2] 50,000 units PO WEEKLY 09/30/18 [History] Fenofibrate Nanocrystallized [Fenofibrate] 48 mg PO HS 09/30/18 [History] Folic Acid 1 mg PO BID 09/30/18 [History] Gabapentin 800 mg PO QID 09/30/18 [History] Lisinopril 10 mg [Zestril 10 MG] 10 mg PO DAILY 09/30/18 [History] Metoprolol Tartrate 50 mg [Lopressor 50 MG] 50 mg PO HS 09/30/18 [History] Omeprazole 40 mg PO DAILY 09/30/18 [History] Sitagliptin Phos/Metformin HCl [Janumet Xr 100-1,000 mg Tablet] 1 tab PO HS 09/30/18 [History] hydroCHLOROthiazide [Hydrochlorothiazide] 25 mg PO DAILY 09/30/18 [History] Aspirin EC 325 mg [Ecotrin 325 MG] 325 mg PO DAILY 05/07/20 [History] Furosemide 20 mg [Lasix 20 mg] 20 mg PO DAILY 05/07/20 [History] Semaglutide [Ozempic] 1 iu SQ WEEKLY 05/07/20 [History] Hx Tetanus, Diphtheria Vaccination/Date Given: No Hx Influenza Vaccination/Date Given: No Hx Pneumococcal Vaccination/Date Given: No Immunizations Up to Date: Yes Travel Risk - International Travel Have you traveled outside of the country in past 3 weeks: No - Coronavirus Screening Symptoms: Cough: New Onset, Shortness of Breath Close contact with a COVID-19 positive Pt in past 14-21 Days: No - Vaccine Status Have you recieved a Covid-19 vaccination: No - Review of Systems Constitutional: No Symptoms, Fever Eyes: No Symptoms Ears, Nose, & Throat: No Symptoms, Nose Pain, Nose Congestion, Nose Discharge Respiratory: No Symptoms, Cough Cardiac: No Symptoms Abdominal/Gastrointestinal: No Symptoms Genitourinary Symptoms: No Symptoms Musculoskeletal: No Symptoms Skin: No Symptoms Neurological: No Symptoms Psychological: No Symptoms Endocrine: No Symptoms Hematologic/Lymphatic: No Symptoms Immunological/Allergic: No Symptoms - Past Medical History Pertinent Past Medical History: Yes Neurological History: No Pertinent History ENT History: Cataracts Cardiac History: Coronary Artery Disease, Hypertension Respiratory History: Sleep Apnea Endocrine Medical History: Diabetes Type II Musculoskeletal History: Arthritis, Fractures GI Medical History: Gallbladder Disease History: No Pertinent History Psycho-Social History: Depression Male Reproductive Disorders: No Pertinent History Other Medical History: LOW TESTOSTERONE - GOUT,cardiac catherization- has blockages that dont require treatment at this time - Past Surgical History Past Surgical History: Yes Neuro Surgical History: No Pertinent History Cardiac: Cardiac Catheterization Respiratory: No Pertinent History Gastrointestinal: No Pertinent History, Cholecystectomy Genitourinary: No Pertinent History Musculoskeletal: Orthopedic Surgery Male Surgical History: No Pertinent History Other Surgical History: left wrist , diabetic neuropathy, small blockages no treatment at this time, teeth removal, left shoulder replacement - Social History Smoking Status: Current every day smoker How long have you smoked: 35 years Exposure to second hand smoke: Yes Drug Use: none Patient Lives Alone: No Significant Family History: heart disease, diabetes, hypertension, stroke - Nursing Vital Signs Nursing Vital Signs: Initial Vital Signs Temperature 98.3 F 04/18/22 18:38 Pulse Rate 72 04/18/22 18:38 Respiratory Rate 18 04/18/22 18:38 Blood Pressure 170/90 04/18/22 18:38 O2 Sat by Pulse Oximetry 96 04/18/22 18:38 Pain Scale Pain Intensity 0 Hypertensive - Physical Exam General Appearance: no apparent distress Eye Exam: PERRL/EOMI, eyes nml inspection Ears, Nose, Throat Exam: normal ENT inspection, TMs normal, pharynx normal, moist mucous membranes Neck Exam: normal inspection, non-tender, supple, full range of motion, No meningismus, No mass, No Brudzinski, No Kernig's Respiratory Exam: airway intact, wheezing (Scattered wheezes but overall clear) Cardiovascular Exam: regular rate/rhythm, normal heart sounds, capillary refill <2 sec, No murmur Gastrointestinal/Abdomen Exam: soft, normal bowel sounds, No tenderness Back Exam: normal inspection, normal range of motion Extremity Exam: normal inspection, normal range of motion Neurologic Exam: alert, oriented x 3, cooperative, car salesman II-XII nml as tested, normal mood/affect, nml cerebellar function, nml station & gait, sensation nml Skin Exam: normal color, warm, dry, No rash Lymphatic Exam: No adenopathy SpO2 Interpretation: normal SpO2: 95 O2 Delivery: Room Air - Course Nursing assessment & vital signs reviewed: Yes Lab/Rad Data: Laboratory Results 04/18/22 Range/Units 19:00 Influenza Type A Ag POSITIVE (NEGATIVE) Influenza Type B Ag NEGATIVE (NEGATIVE) RSV (PCR) NEGATIVE (Negative) SARS-CoV-2 (PCR) NEGATIVE (NEGATIVE) - Progress Air Movement: good Counseled pt/family regarding: lab results, diagnosis, need for follow-up - Departure Departure Disposition: Home Clinical Impression: Influenza A Condition: Stable Critical Care Time: No Referrals: JONAS SMITH MD [Primary Care Provider] - Follow up/PCP as directed Instructions: Flu, Adult (DC) Additional Instructions: Tamiflu twice a day for 5 days Fluids Proventil 2 puffs every 4 hours as needed shortness of breath Follow up with your family MD Return to ER as needed Quit smoking Prescriptions: Albuterol Sulfate [Proventil Hfa] 2 puffs IH Q4-6HPRN PRN #1 inhaler PRN Reason: Shortness Of Breath/Wheezing Oseltamivir 75 mg [Tamiflu 75MG Capsule] 75 mg PO BID #10 cap
[2022-04-18 19:42] LABS: INFLUENZA B NEGATIVE (NEGATIVE); RESPIRATORY SYNCTIAL VIRUS NEGATIVE (Negative); SARS-CoV-2 Xpert Express NEGATIVE (NEGATIVE)
[2022-04-18 19:48] LABS: INFLUENZA A POSITIVE (NEGATIVE)
[2022-04-18 20:01] VITALS: BP 105/56; PULSE 71
[2022-04-18 20:02] VITALS: O2SAT 95
== END 2022-04-18 20:02 | disposition home or self-care (01) ==
LOC: ED 18:20
DX: J10.1 Influenza due to other identified influenza virus with other respiratory manifestations (principal); R05.1 Acute cough; R09.81 Nasal congestion; R50.9 Fever, unspecified; I10 Essential (primary) hypertension; E11.9 Type 2 diabetes mellitus without complications; Z79.84 Long term (current) use of oral hypoglycemic drugs; Z79.85 Long-term (current) use of injectable non-insulin antidiabetic drugs; Z79.899 Other long term (current) drug therapy; Z28.310 Unvaccinated for COVID-19; Z72.0 Tobacco use
CPT/HCPCS: 0241U; 99282

== ENCOUNTER 2022-04-21 10:18 | Emergency (ER) | payer OTHER ==
[2022-04-21 10:39] VITALS: PULSE 81
[2022-04-21] MEDS ORDERED: TORAdol 30 mg Injection IV ONE (10:50)
[2022-04-21] MEDS ORDERED: TORAdol 30 mg Injection ONE (10:53)
--- NOTE | 2022-04-21 11:20 | ERPHSYRPT ---
- History of Present Illness Time Seen by Provider: 04/21/22 11:10 Source: patient Exam Limitations: no limitations Patient Subjective Stated Complaint: pt here for left anle injury after falling down basement stairs last yesterday, no other injury Triage Nursing Assessment: pt alert, arrived wc, resp easy, face mask in place, pain to left ankle, no swelling or bruising noted, has strong pedal pulse Physician History: 56-year-old male presents to our ED for evaluation of left foot and ankle pain. Patient states he fell down a couple basement steps. No other injuries reported. The fall was not associated with neuro or cardiovascular symptomology. No chest pain or shortness of breath. No nausea vomiting or diaphoresis. No numbness tingling or weakness. Injury occurred yesterday. Patient's only complaint is pain to his left ankle and left foot. No knee hip back pain no BHT or LOC. No neck pain. Cervical spine cleared clinically. Pain described as an ache that is localized. No radiation. Pain worse with weightbearing. Pain improved with rest. Patient voices no other complaints or concerns at this time. Portions of this note were created with voice recognition technology. There may be grammatical, spelling, punctuation or sound alike errors Method of Injury: fell Occurred: yesterday Quality: constant Severity of Pain-Max: moderate Severity of Pain-Current: mild Lower Extremities Pain: foot: left, ankle: left Modifying Factors: Improves With: other (Weightbearing) Associated Symptoms: none, No dizzy, No seizure, No snapping sensation Allergies/Adverse Reactions: cephalexin [From Keflex] Allergy (Verified 04/21/22 10:35) codeine [Codeine] Adverse Reaction (Verified 04/21/22 10:35) nausea Iodinated Contrast Media [IV Dye, Iodine Containing Contrast ] Adverse Reaction (Verified 04/21/22 10:35) chest pain Home Medications: Allopurinol 300 mg [Zyloprim 300 mg] 300 mg PO HS 09/30/18 [History] Atorvastatin Calcium 10 mg PO DAILY 09/30/18 [History] Cyclobenzaprine HCl 10 mg [Cyclobenzaprine 10 MG] 10 mg PO BID 09/30/18 [History] Ergocalciferol (Vitamin D2) [Vitamin D2] 50,000 units PO WEEKLY 09/30/18 [History] Fenofibrate Nanocrystallized [Fenofibrate] 48 mg PO HS 09/30/18 [History] Folic Acid 1 mg PO BID 09/30/18 [History] Gabapentin 800 mg PO QID 09/30/18 [History] Lisinopril 10 mg [Zestril 10 MG] 10 mg PO DAILY 09/30/18 [History] Metoprolol Tartrate 50 mg [Lopressor 50 MG] 50 mg PO HS 09/30/18 [History] Omeprazole 40 mg PO DAILY 09/30/18 [History] Sitagliptin Phos/Metformin HCl [Janumet Xr 100-1,000 mg Tablet] 1 tab PO HS 09/30/18 [History] hydroCHLOROthiazide [Hydrochlorothiazide] 25 mg PO DAILY 09/30/18 [History] Aspirin EC 325 mg [Ecotrin 325 MG] 325 mg PO DAILY 05/07/20 [History] Furosemide 20 mg [Lasix 20 mg] 20 mg PO DAILY 05/07/20 [History] Semaglutide [Ozempic] 1 iu SQ WEEKLY 05/07/20 [History] Hx Tetanus, Diphtheria Vaccination/Date Given: No Hx Influenza Vaccination/Date Given: No Hx Pneumococcal Vaccination/Date Given: No Immunizations Up to Date: Yes Travel Risk - International Travel Have you traveled outside of the country in past 3 weeks: No - Coronavirus Screening Are you exhibiting any of the following symptoms?: No - Vaccine Status Have you recieved a Covid-19 vaccination: No - Review of Systems Constitutional: No Symptoms, No Fever, No Chills Eyes: No Symptoms Ears, Nose, & Throat: No Symptoms Respiratory: No Symptoms, No Cough, No Dyspnea Cardiac: No Symptoms, No Chest Pain, No Edema, No Syncope Abdominal/Gastrointestinal: No Symptoms, No Abdominal Pain, No Nausea, No Vomiting, No Diarrhea Genitourinary Symptoms: No Symptoms, No Dysuria Musculoskeletal: No Symptoms, No Back Pain, No Neck Pain Skin: No Symptoms, No Rash Neurological: No Symptoms, No Dizziness, No Focal Weakness, No Sensory Changes Psychological: No Symptoms Endocrine: No Symptoms Hematologic/Lymphatic: No Symptoms Immunological/Allergic: No Symptoms All Other Systems: Reviewed and Negative - Past Medical History Pertinent Past Medical History: Yes Neurological History: No Pertinent History ENT History: Cataracts Cardiac History: Coronary Artery Disease, Hypertension Respiratory History: Sleep Apnea Endocrine Medical History: Diabetes Type II Musculoskeletal History: Arthritis, Fractures GI Medical History: Gallbladder Disease History: No Pertinent History Psycho-Social History: Depression Male Reproductive Disorders: No Pertinent History Other Medical History: LOW TESTOSTERONE - GOUT,cardiac catherization- has blockages that dont require treatment at this time - Past Surgical History Past Surgical History: Yes Neuro Surgical History: No Pertinent History Cardiac: Cardiac Catheterization Respiratory: No Pertinent History Gastrointestinal: No Pertinent History, Cholecystectomy Genitourinary: No Pertinent History Musculoskeletal: Orthopedic Surgery Male Surgical History: No Pertinent History Other Surgical History: left wrist , diabetic neuropathy, small blockages no treatment at this time, teeth removal, left shoulder replacement - Social History Smoking Status: Current every day smoker How long have you smoked: 35 years Exposure to second hand smoke: Yes Drug Use: none Patient Lives Alone: No Significant Family History: heart disease, diabetes, hypertension, stroke - Nursing Vital Signs Nursing Vital Signs: Initial Vital Signs Temperature 97.0 F 04/21/22 10:36 Pulse Rate 81 04/21/22 10:36 Respiratory Rate 18 04/21/22 10:36 Blood Pressure 113/59 04/21/22 10:36 O2 Sat by Pulse Oximetry 95 04/21/22 10:36 Pain Scale Pain Intensity 10 - Physical Exam General Appearance: no apparent distress, alert Eyes, Ears, Nose, Throat Exam: normal ENT inspection, TMs normal, pharynx normal, moist mucous membranes Neck Exam: normal inspection, non-tender, supple Cardiovascular/Respiratory Exam: chest non-tender, normal breath sounds, regular rate/rhythm, no respiratory distress Gastrointestinal/Abdominal Exam: non-tender, guarding Back Exam: normal inspection, normal range of motion, No vertebral tenderness Hips Exam: bilateral: non-tender, normal inspection, normal range of motion, no evidence of injury Legs Exam: bilateral leg: non-tender, normal inspection, normal range of motion, no evidence of injury Knees Exam: bilateral knee: non-tender, normal inspection, normal range of motion, no evidence of injury Ankle Exam: right ankle: non-tender, normal inspection, normal range of motion, no evidence of injury, left ankle: pain, soft tissue tenderness, swelling Foot Exam: right foot: non-tender, normal inspection, normal range of motion, no evidence of injury, left foot: pain, soft tissue tenderness, swelling, other Neuro/Tendon Exam: normal sensation, normal motor functions Mental Status Exam: alert, oriented x 3, cooperative Skin Exam: normal color, warm, dry SpO2: 95 O2 Delivery: Room Air - Course Nursing assessment & vital signs reviewed: Yes - Radiology Exams Ankle X-ray Interpretation: Teleradiologist Report (Talotibial degenerative changes. Heel spur. Vascular calcifications. Soft tissue granuloma) Foot X-ray Interpretation: Teleradiologist Report (No fracture dislocations. Chronic changes otherwise) Ordered Tests: Active Orders 24 hr Category Date Time Status ANKLE (3 VIEWS) Stat Exams 04/21/22 10:49 Completed FOOT (MINIMUM 3 VIEWS) Stat Exams 04/21/22 10:49 Completed Medication Summary Discontinued Medications Generic Name Dose Route Start Last Admin Trade Name Freq PRN Reason Stop Dose Admin Ketorolac Tromethamine 30 mg 04/21/22 10:50 04/21/22 10:56 Ketorolac Tromethamine 30 Mg/Ml Inj IV 04/21/22 10:51 30 mg STAT ONE Administration Ketorolac Tromethamine Confirm 04/21/22 10:53 Ketorolac Tromethamine 30 Mg/Ml Inj Administered 04/21/22 10:54 Dose 30 mg .ROUTE .STK-MED ONE - Progress Progress: improved Progress Note: Patient reassessed. Patient received Toradol for pain control. Patient resting comfortably. X-rays negative for fracture dislocation. No negation for further work-up at this time will discharge home. We will offer patient crutches. Referral to the orthopedic clinic was provided to patient. [id number] analgesics as needed. Patient agrees to follow-up within 48 hours for evaluation. Portions of this note were created with voice recognition technology. There may be grammatical, spelling, punctuation or sound alike errors 04/21/22 11:39 Counseled pt/family regarding: diagnosis, need for follow-up, rad results - Departure Departure Disposition: Home Clinical Impression: Talotibial degenerative changes, Heel spur, Vascular calcification, Ankle sprain, Foot sprain Condition: Stable Critical Care Time: No Referrals: JONAS SMITH MD [Primary Care Provider] - Follow up/PCP as directed Instructions: Ankle Sprain (DC) Additional Instructions: Discharge/Care Plan RAY SAUNDERS JR was seen on 04/21/22 in the Emergency Room. The patient was counseled regarding Diagnosis,Lab results, Imaging studies, need for follow up and when to return to the Emergency Room. Prescriptions given: Discharge Note I have spoken with the patient and/or caregivers. I have explained the patient's condition, diagnosis and treatment plan based on the information available to me at this time. I have answered the patient's and/or caregiver's questions and addressed any concerns. The patient and/or caregivers have as good understanding of the patient's diagnosis, condition and treatment plan as can be expected at this point. The vital signs have been stable. The patient's condition is stable and appropriate for discharge from the emergency department. The patient will pursue further outpatient evaluation with the primary care physician or other designated or consulting physician as outlined in the discharge instructions. The patient and/or caregivers are agreeable to this plan of care and follow-up instructions have been explained in detail. The patient and/or caregivers have received these instruction. The patient/and or caregivers are aware that any significant change in condition or worsening of symptoms should prompt an immediate return to this or the closest emergency department or call 911. Outpatient Orders: Ortho Referral Time Frame: 1 Day, Facility: [facility]. Hosp, Location: [facility]
--- NOTE | 2022-04-21 11:34 | XRAY ---
Indication: Pain following injury. Comparison: None 3 view left ankle demonstrates mild talotibial degenerative changes, tiny medial malleolus spurring, small posterior/plantar heel spurs, mild scattered vascular calcifications, and tiny lower leg soft tissue calcified granulomas. No other bony, articular, or soft tissue abnormalities.
--- NOTE | 2022-04-21 11:36 | XRAY ---
Indication: Pain following injury. Comparison: None 3 nonweightbearing views left foot demonstrates mild talotibial degenerative changes, small heel spurs, spurring base 5th metatarsal, small cuboid accessory ossicle, mild scattered vascular calcifications, and tiny lower leg soft tissue calcified granulomas. No other bony, articular, or soft tissue abnormalities.
[2022-04-21 11:58] VITALS: BP 124/75; O2SAT 98
== END 2022-04-21 11:59 | disposition home or self-care (01) ==
LOC: ED 10:18
DX: S93.402A Sprain of unspecified ligament of left ankle, initial encounter (principal); S93.602A Unspecified sprain of left foot, initial encounter; W10.9XXA Fall (on) (from) unspecified stairs and steps, initial encounter; Y92.008 Other place in unspecified non-institutional (private) residence as the place of occurrence of the external cause; M19.072 Primary osteoarthritis, left ankle and foot; M77.32 Calcaneal spur, left foot; I70.90 Unspecified atherosclerosis; M25.572 Pain in left ankle and joints of left foot; I10 Essential (primary) hypertension; E11.9 Type 2 diabetes mellitus without complications; Z79.84 Long term (current) use of oral hypoglycemic drugs; Z79.85 Long-term (current) use of injectable non-insulin antidiabetic drugs; Z79.899 Other long term (current) drug therapy; Z28.310 Unvaccinated for COVID-19; Z72.0 Tobacco use
CPT/HCPCS: 73610; 73630; 96374; 99283; J1885